=== PATIENT | female | born 1970 | race Caucasian/White ===

== ENCOUNTER 2016-10-28 22:49 | Inpatient (IN) | payer OTHER ==
[~2016-10-28] VITALS: Ht 165.1 cm; Wt 71.2 kg
--- NOTE | 2016-10-29 02:37 | ERD ---
ER Documentation Chief Complaint Date/Time DATE: 10/29/16 TIME: 02:34 Chief Complaint nosebleeding x 1 hour. no active nosebleeding in intake HPI This is a 46-year-old female presenting to the emergency room stating that she had a nosebleed in the right nare that lasted about an hour. Patient states that there is no active bleeding. She denies any upper respiratory infection symptoms, headache, dizziness or chest pain or shortness of breath. Patient states it is the first time it happens. She denies any medical history ROS All systems reviewed and are negative except as per history of present illness. Allergies Allergies: Coded Allergies: No Known Drug Allergies (Verified Allergy, Unknown, 10/28/16) Physical Exam Vitals Vital Signs Date Time Temp Pulse Resp B/P Pulse Ox O2 Delivery O2 Flow Rate FiO2 10/28/16 22:56 98.2 83 20 113/72 99 Physical Exam Const: Well-developed well-nourished no acute distress Head: Atraumatic Eyes: Normal Conjunctiva ENT: Normal External Ear and Mouth. On examination there was evidence of dried blood in the right nare no active bleed Neck: Full range of motion..~ No meningismus. Resp: Clear to auscultation bilaterally Cardio: Regular rate and rhythm, no murmurs Abd: Soft, non tender, non distended. Normal bowel sounds Skin: No petechiae or rashes Back: No midline or flank tenderness Ext: No cyanosis, or edema Neur: Awake and alert Psych: Normal Mood and Affect Procedures/MDM This is a 46-year-old female presenting to the emergency room with a history of epistaxis today which is likely a anterior epistaxis. There was no active bleeding on examination, patient has stable vital signs. She appears to be hemodynamically stable. No evidence of a posterior epistaxis. Patient did not have any headache or head injury. I discussed to apply Vaseline in the right nare. I discussed her to the ER for any worsening signs or symptoms. Discussed to follow-up with the primary care physician. Patient understands and agrees with plan Departure Diagnosis: Primary Impression: Epistaxis Condition: Stable Patient Instructions: Epistaxis (Adult) Referrals: NO PRIMARY,CARE PHYSICIAN (PCP) mayorga doctora [facility] Usted se chaudhari hecho un examen mdico de control que le indica que no est en [place] condicin que requiera tratamiento urgente en el Departamento de Emergencia. Un estudio ms profundo y el tratamiento de mayorga condicin pueden esperar sin ningn riesgo hasta que usted sea atendida/o en el consultorio de mayorga mdico o lake cl connie. Es responsabilidad suya arreglar [place] para el seguimiento del josie. MANEJO DE CONDICIONES NO URGENTES EN EL FUTURO 1) Si usted tiene un mdico de atencin primaria: Usted debera llamar a mayorga mdico de atencin primaria antes de venir al departamento de emergencia. Despus de las horas de consultorio, mayorga doctor o mayorga asociado/a est disponible por telfono. El mdico o enfermero de sharri en el servicio telefnico puede asesorarle por joss medio para atender el problema, o josie contrario se puede programar [place]. 2) Si usted no tiene un mdico de atencin primaria: Llame al mdico o clnica de referencia que aparece abajo nuris las horas de consultorio para hacer [place] para que le vean. CLINICAS: [facility] [phone] [facility] [phone] [facility]. [facility] [phone] [facility] [place] [id number] [phone] [facility] [place] [address] [phone] [facility]. [phone] Additional Instructions: Visite a mayorga mdico maana para un EXAMEN.Regrese a estas instalaciones si no se mejora mauro esperbamos o mauro le dijimos. Regrese a estas instalaciones si no se mejora mauro esperbamos o mauro le dijimos. DENNISE CONNER PA-C Oct 29, 2016 02:37
--- NOTE | 2016-10-29 03:42 | RADRPT ---
PROCEDURE: XR Chest. CLINICAL INDICATION: Shortness of breath. TECHNIQUE: AP Portable chest. COMPARISON: No pertinent prior examinations were submitted for comparison. FINDINGS: There is moderate cardiomegaly. The lungs are clear. The osseous structures are unremarkable. IMPRESSION: No acute findings. RPTAT: HIKT .Maxi Spaulding MD, MD Date Time Electronically viewed and signed by .Maxi Spaulding MD, MD on 10/29/2016 03:42 .T/
[2016-10-29 04:38] LABS: ADD SCAN DIFF NO
[2016-10-29 04:42] LABS: BASOPHILS % 0.3 % (0.0-2.0); EOSINOPHILS # 0.1 10^3/ul (0.0-0.5); EOSINOPHILS % 1.9 % (0.0-7.0); HEMATOCRIT 39.3 % (37.0-47.0); HEMOGLOBIN 12.6 g/dl (12.0-16.0); LYMPHOCYTES # 2.1 10^3/ul (0.8-2.9); MEAN CORPUSCULAR HEMOGLOBIN 29.1 pg (29.0-33.0); MEAN CORPUSCULAR HGB CONC 32.1 g/dl (32.0-37.0); MEAN CORPUSCULAR VOLUME 90.8 fl (82.0-101.0); MEAN PLATELET VOLUME 12.3 fl (7.4-10.4); MONOCYTE # 0.6 10^3/ul (0.3-0.9); MONOCYTES % 9.5 % (0.0-11.0); NEUTROPHIL # 3.8 10^3/ul (1.6-7.5); PLATELET COUNT 235 10^3/UL (140-415); RED BLOOD COUNT 4.33 10^6/ul (4.20-5.40); RED CELL DISTRIBUTION WIDTH 13.6 % (11.5-14.5); WHITE BLOOD COUNT 6.7 10^3/ul (4.8-10.8)
[2016-10-29 04:45] LABS: POTASSIUM 4.3 mmol/L (3.5-5.1)
[2016-10-29 04:47] LABS: INR 0.98
[2016-10-29 04:48] LABS: CREATININE 0.57 mg/dl (0.44-1.00)
[2016-10-29 04:49] LABS: CALCIUM 9.1 mg/dl (8.4-10.2)
[2016-10-29 05:00] LABS: TROPONIN-I 0.04 ng/ml (0.00-0.12)
[2016-10-29] MEDS ORDERED: NITROGLYCERIN 2% 1 GM OINT PKT TD ONE (05:30)
[2016-10-29] MEDS ORDERED: ASPIRIN 325 MG TAB PO ONE (05:30)
--- NOTE | 2016-10-29 05:36 | ERA ---
ER Documentation Chief Complaint Date/Time DATE: 10/29/16 Chief Complaint Chest pain HPI The patient is a 46-year-old female, presenting to the ER because of nosebleed about 10 PM that resolved by itself. She complains of sternal chest pain that began about 9:30 AM, 02/11, increased with respiration. She denies any fever, complains of nasal congestion, intermittent cough today. She denies neck pain, chest pain with exertion or vomiting or diaphoresis.. He denies abdominal pain, vomiting, diarrhea, constipation. She does not smoke, drinks socially Past medical history:None Past surgical history: 3 C-sections ROS All systems reviewed and are negative except as per history of present illness. Allergies Allergies: Coded Allergies: No Known Drug Allergies (Verified Allergy, Unknown, 10/28/16) PMhx/Soc History of Surgery: Yes ( X 3.) Anesthesia Reaction: No Hx Neurological Disorder: No Hx Respiratory Disorders: No Hx Cardiac Disorders: No Hx Psychiatric Problems: No Hx Miscellaneous Medical Probl: No Hx Alcohol Use: Yes (RARELY) Hx Substance Use: No Hx Tobacco Use: No Smoking Status: Never smoker Physical Exam Vitals Vital Signs Date Time Temp Pulse Resp B/P Pulse Ox O2 Delivery O2 Flow Rate FiO2 10/29/16 03:07 97.9 67 20 100/71 99 Room Air 10/28/16 22:56 98.2 83 20 113/72 99 Physical Exam Const: No acute distress. Head: Atraumatic. Eyes: Normal Conjunctiva. ENT: Normal External Ears, Nose and Mouth. No active nostril bleeding Neck: Full range of motion. No meningismus. Resp: Clear to auscultation bilaterally. Cardio: Regular rate and rhythm, no murmurs. Abd: Soft, non distended, normal bowel sounds, non tender. Skin: No petechiae or rashes. Back: No midline or flank tenderness. Ext: No cyanosis, or edema. Neur: Awake and alert. No focal deficit Psych: Normal Mood and Affect. Result Diagram: 10/29/16 0325 10/29/16 0325 Results 24 hrs Laboratory Tests Test 10/29/16 03:25 Activated Partial Thromboplast Time 31.0Sec Anion Gap 15 Basophils # 0.010^3/ul Basophils % 0.3% Blood Urea Nitrogen 12mg/dl Calcium Level 9.1mg/dl Carbon Dioxide Level 28mmol/L Chloride Level 102mmol/L Creatinine 0.57mg/dl Eosinophils # 0.110^3/ul Eosinophils % 1.9% Glucose Level 101mg/dl Hematocrit 39.3% Hemoglobin 12.6g/dl INR International Normalized Ratio 0.98 Lymphocytes # 2.110^3/ul Lymphocytes % 31.0% Mean Corpuscular Hemoglobin 29.1pg Mean Corpuscular Hemoglobin Concent 32.1g/dl Mean Corpuscular Volume 90.8fl Mean Platelet Volume 12.3fl Monocytes # 0.610^3/ul Monocytes % 9.5% Neutrophils # 3.810^3/ul Neutrophils % 57.0% Nucleated Red Blood Cells # 0.010^3/ul Nucleated Red Blood Cells % 0.0/100WBC Platelet Count 97277^3/UL Potassium Level 4.3mmol/L Prothrombin Time 13.0Sec Prothrombin Time Ratio 1.0 Red Blood Count 4.3310^6/ul Red Cell Distribution Width 13.6% Sodium Level 141mmol/L Troponin I 0.040ng/ml White Blood Count 6.710^3/ul Current Medications Medications (Trade) Dose Ordered Sig/Meghan Route PRN Reason Start Time Stop Time Status Last Admin Dose Admin Aspirin (Aspirin) 325 mg ONCE ONCE PO 10/29/16 05:30 10/29/16 05:31 Nitroglycerin (Nitroglycerin 2% Oint) 1 inch ONCE ONCE TD 10/29/16 05:30 10/29/16 05:31 Procedures/MDM EKG: Read by emergency physician Rate/Rhythm: Normal Sinus Rhythm 87 beats/min QRS, ST, T-waves: No ST elevation, low voltage QRS, inferior T-wave inversion Impression: Abnormal EKG [place] [address] Radiology Main Line: [phone] DIAGNOSTIC IMAGING REPORT Patient: YAW GIRON : 1970 Age: 46 Sex: F MR #: [id number] DOS: 10/29/16 0315 Ordering MD: VERENICE MCKEON MD Location: E/R Room/Bed: PROCEDURE: XR Chest. CLINICAL INDICATION: Shortness of breath. TECHNIQUE: AP Portable chest. COMPARISON: No pertinent prior examinations were submitted for comparison. FINDINGS: There is moderate cardiomegaly. The lungs are clear. The osseous structures are unremarkable. IMPRESSION: No acute findings. RPTAT: HIKT .Maxi Spaulding MD, MD Date Time Electronically viewed and signed by .Maxi Spaulding MD, MD on 10/29/2016 03:42 .T/ CC: VERENICE MCKEON MD MEDICAL MAKING DECISION: The patient is a 46-year-old female, resenting with acute chest pain with abnormal EKG and acute viral syndrome. she was treated with aspirin 325 mg p.o. and 1 inch of nitroglycerin ointment with good response. The differential diagnoses considered include but are not limited to acute coronary syndrome, acute myocardial infarction, pericarditis, pulmonary embolism, aortic dissection, pneumonia, pleural effusion, pneumothorax, GERD, chest wall pain, pleurisy. Departure Diagnosis: Primary Impression: Chest pain Additional Impressions: Viral syndrome Epistaxis Condition: Stable Patient Instructions: Epistaxis (Adult) Comments I discussed the findings with the patient. I discussed the patient with the on- call hospitalist at the [facility] who was made aware of the lab, the treatment, the patient condition. The patient is admitted to telemetry at 5 AM VERENICE MCKEON MD Oct 29, 2016 05:33
--- NOTE | 2016-10-29 05:43 | HP ---
Date/Time of Note Date/Time of Note DATE: 10/29/16 TIME: 05:38 Assessment/Plan VTE Prophylaxis VTE Prophylaxis Intervention: LMWH Lines/Catheters IV [facility]ter [facility]from [facility] Saline Lock Assessment/Plan Assessment/Plan 46 yo female with no significant past medical history who complains of chest pain. 1. Chest pain - atypical vs ACS - will admit the patient to telemetry, cycle cardiac markers, check TSH/Mag levels, ECHO, morphine/oxygen/nitro/aspirin, check lipid panel, hgba1c 2. GI ppx - pepcid 3. DVT ppx - lovenox answered all of her questions. as per clinical course. this history and physical took greater then 45 minutes to complete HPI/ROS Admit Date/Time Admit Date/Time 10/29/2016, 5:38 am Hx of Present Illness 46 yo female with no significant past medical history who complains of chest pain. She states that the chest pain is substernal, pressure-like, 5/10 in intensity, constant, no alleviating factors, non-radiating, associated with dizziness and shortness of breath. the pain is non-reproducible or pleuritic in nature. Denies any nausea/vomiting/diarrhea/constipation, loss of consciousness , headaches, urinary/bowel irregularities, fevers/chills, or other constitutional symptoms. This has never happened before. ED course: aspirin/nitro paste ROS 14 point review of systems completed, please refer to HPI for any positive findings PMH/Family/Social Past Medical History Medical History: no pertinent history Past Surgical History x 3 Family History Significant Family History: no pertinent family hx Social History Alcohol Use: none Smoking Status: Never smoker Drug Use: none Exam/Review of Systems Vital Signs Vitals Vital Signs Date Time Temp Pulse Resp B/P Pulse Ox O2 Delivery O2 Flow Rate FiO2 10/29/16 03:07 97.9 67 20 100/71 99 Room Air Exam Exam Gen Prince: mild distress 2/2 chest pain, AAOx4 HEENT: NC/AT, PERRLA, EOMI, no pharyngeal erythema, no tonsillar exudates, no lymphadenopathy, no JVD, no carotid bruits NECK: supple, no thyromegaly THORAX: symmetrical, no obvious deformities CV: S1S2, RRR, no M/G/R Lungs: CTAB no W/C/R/R Abd: soft, NT/ND, +BS, no rebound, no guarding, neg HSM EXT: no edema, no ecchymosis, no clubbing, FROM Neuro: CN II-XII grossly intact, no focal deficits Psych: good mentation, alert and oriented, good mood and affect Skin: C/D/I Labs Result Diagram: 10/29/165 10/29/16 0325 Procedures Procedures CXR IMPRESSION: No acute findings. KELLY MARVIN MD Oct 29, 2016 05:43
[2016-10-29] MEDS ORDERED: LORAZEPAM 2 MG INJ IV PRN (06:00)
[2016-10-29] MEDS ORDERED: hydrALAzine 20 MG INJ IV PRN (06:00)
[2016-10-29] MEDS ORDERED: DOCUSATE SODIUM 100 MG CAP PO PRN (06:00)
[2016-10-29] MEDS ORDERED: NACL 0.9% 3 ML SYG IV SCH (06:00)
[2016-10-29] MEDS ORDERED: ONDANSETRON 4 MG INJ IV PRN (06:00)
[2016-10-29] MEDS ORDERED: NITROGLYCERIN (SL) 0.4 MG TAB SL PRN (06:00)
[2016-10-29 07:05] LABS: CHOL/HDL RATIO 3.5 RATIO; MAGNESIUM 2.1 mg/dl (1.7-2.5)
[2016-10-29 09:21] LABS: THYROID STIMULATING HORMONE 5.48 MIU/L (0.465-4.680)
[2016-10-29] MEDS: ASPIRIN 81 MG TAB PO SCH (10:12)
[2016-10-29] MEDS: FAMOTIDINE 20 MG TAB PO SCH ×2 (10:12→20:19)
[2016-10-29] MEDS: ENOXAPARIN 40 MG/0.4 ML SYG SC SCH (10:13)
[2016-10-29 11:04] LABS: CK-MB 0.8 ng/ml (0.0-2.4)
[2016-10-29 11:07] LABS: TROPONIN-I 0.014 ng/ml (0.00-0.12)
[2016-10-29 16:06] LABS: CK-MB 0.59 ng/ml (0.0-2.4)
[2016-10-29 16:09] LABS: TROPONIN-I 0.023 ng/ml (0.00-0.12)
--- NOTE | 2016-10-29 16:25 | QN ---
Documentation Comment The patient was seen and examined. Labs reviewed. The plan of care was explained to the patient. Case discussed with Dr. Benton. PEEWEE WETZEL NP Oct 29, 2016 16:25
[2016-10-29 16:47] VITALS: TEMP 98.4
[2016-10-29 17:09] VITALS: BP 95/63; PULSE 82; RESP 20
[2016-10-29 17:16] VITALS: Ht 165.1 cm; Wt 71.2 kg
[2016-10-29 17:29] VITALS: PULSE 82
[2016-10-29] MEDS: ACETAMINOPHEN 325 MG TAB PO PRN (18:25)
[2016-10-29 20:00] VITALS: BP 101/57; PULSE 79; RESP 19
[2016-10-29] MEDS: morphine 2 MG INJ IV PRN (20:19)
[2016-10-29] MEDS: FLUTICASONE 0.05% 16 GM NAS SPRAY NASAL SCH (20:20)
[2016-10-29 20:26] VITALS: PULSE 85
[2016-10-30] VITALS (14 sets, daily range): BP systolic 87–112; BP diastolic 54–76; PULSE 70–94; RESP 16–20
[2016-10-30 07:16] LABS: ADD SCAN DIFF NO
[2016-10-30 07:26] LABS: BASOPHILS % 0.3 % (0.0-2.0); EOSINOPHILS # 0.1 10^3/ul (0.0-0.5); EOSINOPHILS % 1.9 % (0.0-7.0); HEMATOCRIT 39.3 % (37.0-47.0); HEMOGLOBIN 12.2 g/dl (12.0-16.0); LYMPHOCYTES # 1.7 10^3/ul (0.8-2.9); LYMPHOCYTES % 24.9 % (15.0-51.0); MEAN CORPUSCULAR HEMOGLOBIN 28.8 pg (29.0-33.0); MEAN CORPUSCULAR VOLUME 92.7 fl (82.0-101.0); MEAN PLATELET VOLUME 12.3 fl (7.4-10.4); MONOCYTE # 0.8 10^3/ul (0.3-0.9); MONOCYTES % 11.2 % (0.0-11.0); NEUTROPHIL # 4.2 10^3/ul (1.6-7.5); NEUTROPHILS % 61.4 % (39.0-77.0); PLATELET COUNT 229 10^3/UL (140-415); RED BLOOD COUNT 4.24 10^6/ul (4.20-5.40); RED CELL DISTRIBUTION WIDTH 14.1 % (11.5-14.5); WHITE BLOOD COUNT 6.8 10^3/ul (4.8-10.8)
[2016-10-30 07:46] LABS: POTASSIUM 4.7 mmol/L (3.5-5.1)
[2016-10-30 07:48] LABS: MAGNESIUM 1.9 mg/dl (1.7-2.5); PHOSPHORUS 4.1 mg/dl (2.5-4.9)
[2016-10-30 07:49] LABS: CALCIUM 8.8 mg/dl (8.4-10.2); CREATININE 0.69 mg/dl (0.44-1.00)
[2016-10-30 07:57] LABS: TROPONIN-I 0.024 ng/ml (0.00-0.12)
[2016-10-30] MEDS: FAMOTIDINE 20 MG TAB PO SCH ×2 (09:02→22:18)
[2016-10-30] MEDS: ASPIRIN 81 MG TAB PO SCH (09:02)
[2016-10-30] MEDS: FLUTICASONE 0.05% 16 GM NAS SPRAY NASAL SCH (09:02)
[2016-10-30] MEDS: ENOXAPARIN 40 MG/0.4 ML SYG SC SCH (09:06)
[2016-10-30 14:39] LABS: HEMATOCRIT 39.6 % (37.0-47.0); HEMOGLOBIN 12.5 g/dl (12.0-16.0)
--- NOTE | 2016-10-30 14:51 | PN ---
DATE: 10/30/2016 TIME OF EVALUATION: 1400 SUBJECTIVE DATA: Denies any chest pain. Had 3 episodes of epistaxis from bilateral nares today. Currently, the bleeding has been stopped. The patient denies any headache. However, she complains of nasal stuffiness. The patient also complained that she was able to taste blood in her mouth. OBJECTIVE DATA: VITAL SIGNS: Temperature 98.8, pulse rate 80, respiratory rate 16, blood pressure 99/64, oxygen saturation 95% on room air. GENERAL: This is a well-built, well-nourished female, lying in bed, in no apparent distress. HEENT: Head normocephalic and atraumatic. Eyes: Anicteric sclerae. Conjunctivae clear. ENT: Nasal septum is midline. Dried blood in the bilateral nares. No active bleeding. NECK: Supple. No JVD noticed. RESPIRATORY: Bilaterally clear to auscultation. No adventitious breath sounds. CARDIAC: Regular rate and rhythm. No murmurs. ABDOMEN: Soft, nontender, and nondistended. Bowel sounds positive in all 4 quadrants. GENITOURINARY: Deferred. EXTREMITIES: No cyanosis, no clubbing, no edema. Peripheral pulses are palpable. NEUROLOGIC: The patient is awake, alert, and oriented. Cranial nerves are grossly intact. LABORATORY AND DIAGNOSTIC DATA: WBC 6.8, hemoglobin 12.0, hematocrit 39.2, platelet count 229. Sodium 141, potassium 4.7, chloride 103, carbon dioxide 20 , anion gap 16, BUN 14, creatinine 0.69, glucose 89, calcium 8.8, phosphorus 4.1 , magnesium 1.9. Troponin I 0.024. ASSESSMENT AND PLAN: 1. Chest pain. To rule out acute coronary syndrome. Troponins negative. Pending 2-D echocardiogram. Will avoid using any aspirin or other anticoagulation because of underlying epistaxis. 2. Epistaxis. The patient came to the emergency room initially for epistaxis that was resolved in the emergency room. However, the patient had multiple episodes of epistaxis after she was hospitalized as inpatient. All the anticoagulants will be held on this patient. An ENT consult will be obtained on this patient. The patient is not actively bleeding at this time. Will obtain a stat H and H on this patient. The patient's coagulation panel is within normal limits. The patient has no evidence of any thrombocytopenia. The patient denied any obvious injuries to the face or head. 3. Fluid, electrolytes, and nutrition. Low cholesterol diet. 4. Deep venous thrombosis prophylaxis. Will add sequential compression devices. 5. Gastrointestinal prophylaxis. Histamine 2 blockers. 6. Plan. Continue in-house monitoring. Call ENT surgery promotion manager for underlying epistaxis. Will await 2D echocardiogram. Case discussed with Dr. Madison. ADDENDUM. Received a call back from Dr. Chambers, ENT. Presented the case to the surgeon. As per the surgeon, will monitor the patient for any more bleeding. The patient does not require any intervention as long as there is no more epistaxis. The patient's anticoagulation has already been discontinued. Will monitor the patient. It no more epistaxis, the patient will be discharged home once ACS has been ruled out (pending 2D echo). PEEWEE MADISON MD, AM/TJ Conf#: [id number] DID#: [id number] MTDD
--- NOTE | 2016-10-30 15:38 | RADRPT ---
Echocardiogram Report Patient Name: YAW GIRON Gender: Female Date: 1970 Study Date: 30-Oct-2016 Wet Mixer: [facility] Location: 507 Ref. Physician: KELLY MARVIN Quality: Technically Difficult Study Procedures: Transthoracic echocardiogram with complete 2D, M-Mode, and doppler examination. Indications: Chest Pain. 2D/M Mode Doppler Measurement Value Normal Ranges Measurement Value Normal Ranges LVIDd 2D 5.2 3.5 - 5.6 cm AV Peak Parth 1.3 m/sec LVPWd 2D 1.1 0.6 - 1.1 cm AV Peak PG 6.8 mmHg IVSd 2D 0.9 0.6 - 1.1 cm LVOT Peak Parth 0.8 m/sec AoR Diam 2D 2.1 2.0 - 3.7 cm Findings Left Ventricle: Left ventricular wall thickness upper limits of normal. Mild enlargement of left ventricle cavity. Severe global left ventricular systolic dysfunction. Ejection fraction is visually estimated at 25 %. Abnormal Diastolic Function. Right Ventricle: Normal right ventricular size. Normal right ventricular systolic function. Left Atrium: The left atrium is normal in size. Right Atrium: The right atrium is normal in size. Mitral Valve: Mild mitral leaflet calcification. Mild mitral valve regurgitation. Aortic Valve: Aortic cusps appear mildly calcified. Trileaflet aortic valve. Trace aortic valve regurgitation. Tricuspid Valve: Tricuspid valve not well visualized. There is trace tricuspid regurgitation. Pulmonic Valve: There is trace pulmonic regurgitation. Pericardium: Normal pericardium with no significant pericardial effusion. Aorta: Normal aortic root. IVC: Normal size and poor respiratory collapse consistent with elevated right atrial pressure. Conclusions 1.Left ventricular wall thickness upper limits of normal. Mild enlargement of left ventricle cavity. Severe global left ventricular systolic dysfunction. Ejection fraction is visually estimated at 25 %. Abnormal Diastolic Function. 2.Aortic cusps appear mildly calcified. Trileaflet aortic valve. Trace aortic valve regurgitation. 3.Mild mitral leaflet calcification. Mild mitral valve regurgitation. 4.Tricuspid valve not well visualized. There is trace tricuspid regurgitation. Electronically Signed By: Nikos Hitchcock 30-Oct-2016 15:38:03 -0800 Patient Name: YAW GIRON Study Date: 30-Oct-[id number]
--- NOTE | 2016-10-30 16:35 | QN ---
Documentation Comment Received a call back from Dr. Chambers, ENT. Presented the case to the surgeon. As per the surgeon, will monitor the patient for any more bleeding. The patient does not require any intervention as long as there is no more epistaxis. The patient's anticoagulation has already been discontinued. Will monitor the patient. It no more epistaxis, the patient will be discharged home once ACS has been ruled out (pending 2D echo). Case discussed with Dr. Benton. PEEWEE WETZEL NP Oct 30, 2016 16:35
--- NOTE | 2016-10-30 18:27 | EN ---
Date/Time of Note Date/Time of Note DATE: 10/30/16 TIME: 18:23 ER Progress Note This a 46-year-old female who is admitted for a nosebleed and chest pain. The patient's had off-and-on nosebleed today out of both nares but mostly the left side. There is bright red blood coming anteriorly but not posteriorly. Patient was apparently given aspirin Lovenox this morning. She is not having any dizziness or pain. Const: [Well-developed, well-nourished] Head: [Atraumatic, normocephalic] Eyes: [Normal Conjunctiva, PERRLA, EOMI, normal sclera, no nystagmus] ENT: [Normal External Ears, bright red blood coming out of the left anterior nares no site identified moist mucus membranes.] Neck: [Full range of motion. No meningismus, no lymphadenopathy.] Skin: [No petechiae or rashes, no ecchymosis , no maculopapular rash] Ext: [No cyanosis, or edema, FROM x 4, normal inspection, neurovascularly intact x 4] Neur: [Awake and alert, STR 5/5 x 4, sensation intact x 4, Psych: [Normal Mood and Affect] Procedure: Rhino Rocket placement A left nares anterior posterior Rhino Rocket was placed by me after soaking in water. Air was placed into the balloon until the patient felt comfortable enough yet bleeding was stopped Successful placement resolution of epistaxis Condition: Stable Diagnosis: Left nares epistaxis DESTINEY AMARO DO Oct 30, 2016 18:27
[2016-10-31] VITALS (14 sets, daily range): BP systolic 99–109; BP diastolic 59–71; PULSE 69–105; RESP 17–19
[2016-10-31 06:07] LABS: ADD SCAN DIFF NO
[2016-10-31 06:15] LABS: BASOPHILS % 0.1 % (0.0-2.0); EOSINOPHILS # 0.1 10^3/ul (0.0-0.5); HEMATOCRIT 39.2 % (37.0-47.0); HEMOGLOBIN 12.6 g/dl (12.0-16.0); LYMPHOCYTES # 1.6 10^3/ul (0.8-2.9); LYMPHOCYTES % 22.5 % (15.0-51.0); MEAN CORPUSCULAR HEMOGLOBIN 29.4 pg (29.0-33.0); MEAN CORPUSCULAR HGB CONC 32.1 g/dl (32.0-37.0); MEAN CORPUSCULAR VOLUME 91.4 fl (82.0-101.0); MONOCYTE # 0.8 10^3/ul (0.3-0.9); MONOCYTES % 10.9 % (0.0-11.0); NEUTROPHIL # 4.5 10^3/ul (1.6-7.5); NEUTROPHILS % 64.2 % (39.0-77.0); PLATELET COUNT 235 10^3/UL (140-415); RED BLOOD COUNT 4.29 10^6/ul (4.20-5.40); RED CELL DISTRIBUTION WIDTH 13.7 % (11.5-14.5)
[2016-10-31 06:36] LABS: POTASSIUM 5.2 mmol/L (3.5-5.1)
[2016-10-31 06:37] LABS: MAGNESIUM 1.9 mg/dl (1.7-2.5); PHOSPHORUS 4.2 mg/dl (2.5-4.9)
[2016-10-31 06:38] LABS: CREATININE 0.74 mg/dl (0.44-1.00)
[2016-10-31] MEDS: FAMOTIDINE 20 MG TAB PO SCH ×2 (09:03→21:21)
[2016-10-31] MEDS ORDERED: CARV3.1260 PO (10:24)
[2016-10-31] MEDS ORDERED: LISI-313 PO (10:24)
--- NOTE | 2016-10-31 12:04 | CONS ---
DATE OF ADMISSION: 10/29/2016 DATE OF CONSULTATION: 10/31/2016 TYPE OF CONSULTATION: Cardiology REFERRING PHYSICIAN: Dr. Duong REASON FOR EVALUATION: Cardiomyopathy. HISTORY OF PRESENT ILLNESS: Ms. Blake is a 46-year-old woman with no known past medical histo ry who comes to the hospital now, who presented for evaluation of substernal chest pain. The patien t does not appear to have an acute ischemic event; however, during her evaluation she was noted to h ave significantly reduced ejection fraction, I have been asked to see the patient in consultation. The patient is not aware of any heart problems in the past. She did have some nosebleed and ____ di scomfort, but she does not appear to be in significant degree of cardiac decompensation at this poin t. For now, this is considered to be ____ of heart failure. Will initiate risk stratification. Th e patient will have a stress test and will optimize her medical therapy with afterload reduction. PAST MEDICAL HISTORY: None per patient. SOCIAL HISTORY: The patient does not smoke, does not drink, does not use drugs. FAMILY HISTORY: Negative for sudden cardiac or premature coronary artery disease. CURRENT MEDICATIONS: Include: 1. Famotidine 20 mg a day. 2. IV flush. 3. Nitroglycerin. 4. Docusate. 5. Hydralazine. REVIEW OF SYSTEMS: CONSTITUTIONAL: No fevers, no chills. Chest pain as described. HEENT: No changes in vision or hearing. CARDIAC: No chest pain reported now. RESPIRATORY: Some shortness of breath. GASTROINTESTINAL: No nausea, vomiting, diarrhea, constipation. GENITOURINARY: No dysuria, hematuria, or decreased urine output. NEUROLOGIC: No focal neurologic deficits. HEMATOLOGIC: No easy bruising. PSYCHIATRIC: No known history of psychiatric illness. PHYSICAL EXAMINATION: VITAL SIGNS: Temperature is 98.0, heart rate is 105, blood pressure 109/65. GENERAL: She is a thin woman in no acute distress, alert and oriented x3, aware of her condition. HEAD: Normocephalic, atraumatic. Eyes anicteric. NECK: Supple. JVD 6-7 cm. There is no lymphadenopathy or thyromegaly. HEART: Regular with soft holosystolic murmur. PMI is displaced leftward. LUNGS: Coarse at bases. ABDOMEN: Distended, bowel sounds are present. There is no hepatosplenomegaly. GENITOURINARY: Grossly intact changes, cyanosis, or edema. LABORATORY DATA: White blood cell count 7.3, hemoglobin 12.6, platelets 235. INR is 1.0. Sodium 1 41, potassium 5.2, creatinine 0.9. Troponin is negative at 0.02. ECG read by me shows sinus rhythm at 86, is low voltage. ASSESSMENT AND PLAN: 1. Cardiomyopathy. The patient has newly diagnosed cardiomyopathy, etiology is unclear. 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 Will risk stratification now with a stress test. Wi ll add afterload reduction, sinus tachycardia, beta vipul to be beneficial. 2. History of nosebleeds. We will continue to follow, appears to have stopped now. 3. Chest pain. The patient did not rule in for ischemia. Troponins are negative. 4. Abnormal EKG, low voltage as described. No particular treatment is required. I would like to thank Dr. Duong for referring this patient for my evaluation. Dictated By: TISHA BAXTER/TJ Conf#: [id number] DID#: [id number]
--- NOTE | 2016-10-31 14:46 | PN ---
Date/Time of Note Date/Time of Note DATE: 10/31/16 TIME: 14:43 Assessment/Plan VTE Prophylaxis VTE Prophylaxis Intervention: SCD's Lines/Catheters IV [facility]ter Type [facility]from [facility] Saline Lock Urinary Cath still in place: No Assessment/Plan Chief Complaint/Hosp Course Assessment and plan 1. Chest pain. Patient noted with ejection fraction of 25%. Troponins negative. Proof Machine Operator Supervisor following. Tentative plan for stress test. 2. Epistaxis. ENT consulted. No plan for surgical intervention at this time. Should patient have worsening epistaxis, patient may need ENT intervention. We' ll follow-up. Off anticoagulation and antiplatelet for now DVT prophylaxis: SCDs Disposition and plan: Plan for stress test. We'll get ENT physician for follow- up should patient have worsening epistaxis. Discussed plan of care with Problems: Subjective 24 Hr Interval Summary Free Text/Dictation No apparent distress. Comfortable at present Exam/Review of Systems Vital Signs Vitals Vital Signs Date Time Temp Pulse Resp B/P Pulse Ox O2 Delivery O2 Flow Rate FiO2 10/31/16 12:27 90 10/31/16 12:07 98.1 17 103/63 97 10/31/16 04:00 Room Air Intake and Output 10/30/16 10/30/16 10/31/16 14:59 22:59 06:59 Intake Total 950 ml 1020 ml Balance 950 ml 1020 ml Exam General: No acute signs or symptoms of distress, noted with packing in nasal area Eyes: pupils equal round, Anicteric sclera Neck: Supple nontender, no JVD Cardiac: S1, S2 auscultated, regular rhythm and rate Pulmonary: No coarse rhonchi or breathing auscultated GI: Abdomen soft nontender nondistended, bowel sounds active Extremities: Minimal edema bilateral lower extremities +1 Skin: Clean dry and intact Neurologic: Alert to person place and time and situation Results Result Diagram: 10/31/16 0555 10/31/16 0555 Results 24 hrs Laboratory Tests Test 10/31/16 05:55 Anion Gap 16 Basophils # 0.0 Basophils % 0.1 Blood Urea Nitrogen 13 Calcium Level 9.0 Carbon Dioxide Level 29 Chloride Level 101 Creatinine 0.74 Eosinophils # 0.1 Eosinophils % 2.0 Glucose Level 100 Hematocrit 39.2 Hemoglobin 12.6 Lymphocytes # 1.6 Lymphocytes % 22.5 Magnesium Level 1.9 Mean Corpuscular Hemoglobin 29.4 Mean Corpuscular Hemoglobin Concent 32.1 Mean Corpuscular Volume 91.4 Mean Platelet Volume 12.0 H Monocytes # 0.8 Monocytes % 10.9 Neutrophils # 4.5 Neutrophils % 64.2 Nucleated Red Blood Cells # 0.0 Nucleated Red Blood Cells % 0.0 Phosphorus Level 4.2 Platelet Count 235 Potassium Level 5.2 H Red Blood Count 4.29 Red Cell Distribution Width 13.7 Sodium Level 141 White Blood Count 7.0 Medications Medications Current Medications Lorazepam (Ativan) 0.5 mg Q6H PRN IV ANXIETY; Start 10/29/16 at 06:00 Ondansetron HCl (Zofran Inj) 4 mg Q6H PRN IV NAUSEA AND/OR VOMITING; Start at 06:00 Nitroglycerin (Nitroglycerin (Sl Tab) 0.4 Mg) 1 tab Q5M PRN SL CHEST PAIN; Start 10/29/16 at 06:00 Acetaminophen (Tylenol Tab) 650 mg Q6H PRN PO PAIN LEVEL 1-3 OR FEVER Last administered on 10/29/16 18:25; Admin Dose 650 MG; Start 10/29/16 at 06:00 Morphine Sulfate (morphine) 2 mg Q4H PRN IV PAIN LEVEL 7-10 Last administered on 10/29/16 20:19; Admin Dose 2 MG; Start 10/29/16 at 06:00 Docusate Sodium (Colace) 100 mg Q12H PRN PO CONSTIPATION; Start 10/29/16 at 06: 00 Famotidine (Pepcid) 20 mg Q12 PO Last administered on 10/31/16 09:03; Admin Dose 20 MG; Start 10/29/16 at 09:00 Hydralazine HCl (Apresoline) 10 mg Q6H PRN IV sbp > 160; Start 10/29/16 at 06: 00 Carvedilol (Coreg) 3.125 mg BID PO ; Start 10/31/16 at 21:00 Lisinopril (Zestril) 2.5 mg BID PO ; Start 10/31/16 at 21:00 ROSA RODRIGUES Oct 31, 2016 14:46
[2016-10-31] MEDS: ACETAMINOPHEN 325 MG TAB PO PRN (18:13)
[2016-10-31] MEDS: LISINOPRIL 5 MG TAB PO SCH (21:00)
[2016-11-01] VITALS (11 sets, daily range): BP systolic 100–119; BP diastolic 58–75; PULSE 88–101; RESP 17–20
[2016-11-01] MEDS: FAMOTIDINE 20 MG TAB PO SCH ×2 (09:03→20:20)
[2016-11-01] MEDS: LISINOPRIL 5 MG TAB PO SCH ×2 (09:04→20:19)
--- NOTE | 2016-11-01 10:53 | PN ---
Date/Time of Note Date/Time of Note DATE: 11/01/16 TIME: 10:51 Assessment/Plan VTE Prophylaxis VTE Prophylaxis Intervention: SCD's Lines/Catheters [facility]ter Type (from [facility] Saline Lock Urinary Cath still in place: No Assessment/Plan Chief Complaint/Hosp Course Assessment and plan 1. Chest pain. Patient noted with ejection fraction of 25%. Troponins negative. Harness And Bag Inspector following. Tentative plan for stress test. 11/01/16 2. Epistaxis. ENT consulted. off of anticoagulants. STill with reported epistaxis. Await ENT input DVT prophylaxis: SCDs Disposition and plan: Plan for stress test. Still with epistaxis. Await ENT input. Will follow up . Discussed plan of care with Problems: Subjective 24 Hr Interval Summary Free Text/Dictation no s/s of distress . still reports having nose bleeds Exam/Review of Systems Vital Signs Vitals Vital Signs Date Time Temp Pulse Resp B/P Pulse Ox O2 Delivery O2 Flow Rate FiO2 11/01/16 08:30 93 11/01/16 07:47 98.4 17 119/75 95 10/31/16 04:00 Room Air Intake and Output 10/31/16 10/31/16 11/01/16 15:00 23:00 07:00 Intake Total 950 ml 250 ml Balance 950 ml 250 ml Exam General: No acute signs or symptoms of distress, noted with packing in nasal area Eyes: pupils equal round, Anicteric sclera Neck: Supple nontender, no JVD Cardiac: S1, S2 auscultated, regular rhythm and rate Pulmonary: No coarse rhonchi or breathing auscultated GI: Abdomen soft nontender nondistended, bowel sounds active Extremities: Minimal edema bilateral lower extremities +1 Skin: Clean dry and intact Neurologic: Alert to person place and time and situation Results Result Diagram: 10/31/1655 10/31/1655 Medications Medications Current Medications Lorazepam (Ativan) 0.5 mg Q6H PRN IV ANXIETY; Start 10/29/16 at 06:00 Ondansetron HCl (Zofran Inj) 4 mg Q6H PRN IV NAUSEA AND/OR VOMITING; Start at 06:00 Nitroglycerin (Nitroglycerin (Sl Tab) 0.4 Mg) 1 tab Q5M PRN SL CHEST PAIN; Start 10/29/16 at 06:00 Acetaminophen (Tylenol Tab) 650 mg Q6H PRN PO PAIN LEVEL 1-3 OR FEVER Last administered on 10/31/16 18:13; Admin Dose 650 MG; Start 10/29/16 at 06:00 Morphine Sulfate (morphine) 2 mg Q4H PRN IV PAIN LEVEL 7-10 Last administered on 10/29/16 20:19; Admin Dose 2 MG; Start 10/29/16 at 06:00 Docusate Sodium (Colace) 100 mg Q12H PRN PO CONSTIPATION; Start 10/29/16 at 06: 00 Famotidine (Pepcid) 20 mg Q12 PO Last administered on 11/01/16 09:03; Admin Dose 20 MG; Start 10/29/16 at 09:00 Hydralazine HCl (Apresoline) 10 mg Q6H PRN IV sbp > 160; Start 10/29/16 at 06: 00 Carvedilol (Coreg) 3.125 mg BID PO Last administered on 11/01/16 09:04; Admin Dose 3.125 MG; Start 10/31/16 at 21:00 Lisinopril (Zestril) 2.5 mg BID PO Last administered on 11/01/16 09:04; Admin Dose 2.5 MG; Start 10/31/16 at 21:00 ROSA RODRIGUES Nov 01, 2016 10:53
[2016-11-01 11:45] LABS: ADD SCAN DIFF NO
[2016-11-01 12:01] LABS: POTASSIUM 4.4 mmol/L (3.5-5.1)
[2016-11-01 12:03] LABS: CREATININE 0.62 mg/dl (0.44-1.00)
[2016-11-01 12:04] LABS: CALCIUM 8.9 mg/dl (8.4-10.2)
[2016-11-01 12:07] LABS: BASOPHILS % 0.3 % (0.0-2.0); EOSINOPHILS # 0.1 10^3/ul (0.0-0.5); EOSINOPHILS % 0.8 % (0.0-7.0); HEMATOCRIT 40.9 % (37.0-47.0); LYMPHOCYTES # 1.6 10^3/ul (0.8-2.9); LYMPHOCYTES % 16.8 % (15.0-51.0); MEAN CORPUSCULAR HEMOGLOBIN 28.8 pg (29.0-33.0); MEAN CORPUSCULAR HGB CONC 31.8 g/dl (32.0-37.0); MEAN CORPUSCULAR VOLUME 90.5 fl (82.0-101.0); MEAN PLATELET VOLUME 11.8 fl (7.4-10.4); MONOCYTE # 0.9 10^3/ul (0.3-0.9); MONOCYTES % 8.8 % (0.0-11.0); NEUTROPHIL # 7.1 10^3/ul (1.6-7.5); PLATELET COUNT 266 10^3/UL (140-415); RED BLOOD COUNT 4.52 10^6/ul (4.20-5.40); RED CELL DISTRIBUTION WIDTH 13.7 % (11.5-14.5); WHITE BLOOD COUNT 9.7 10^3/ul (4.8-10.8)
[2016-11-01] MEDS ORDERED: REGADENOSON 0.4 MG/5 ML SYG ONE (12:55)
--- NOTE | 2016-11-01 14:27 | RADRPT ---
PROCEDURE: Lexiscan myocardial perfusion study CLINICAL INDICATION: 46 -year-old patient complaining of chest pain. TECHNIQUE: Lexiscan 0.4 mg intravenously separate acquisition gated myocardial perfusion SPECT usi ng Tc 99m Myoview 30.9 mCi intravenously at stress and Tc-99m Myoview, 9.4 mCi intravenously at rest was performed using the rest/stress sequence. Poststress Myoview SPECT images were obtained in the supine position. COMPARISON: No prior studies. FINDINGS: Perfusion images reveal a moderate size mild to moderate in degree nonreversible perfusion defect in the apical, inferior and inferoseptal flores. Lexiscan post stress gated SPECT images demonstrate moderate hypokinesis of the left ventricle. IMPRESSION: 1. The type and distribution of the scintigraphic abnormalities are most consistent with a moderate size nonreversible perfusion defect in the apical, inferior and inferoseptal flores. 2. Moderate hypokinesis of the left ventricle. 3. The left ventricle ejection fraction at stress is 28%. A call report was made to Dr. Hitchcock at 02:25 p.m. on November 01, 2016. RPTAT: HH .Silvia Barros MD, Date Time Electronically viewed and signed by .Silvia Barros MD, on 11/01/2016 14:26 .L/
--- NOTE | 2016-11-01 14:49 | CONS ---
Date/Time of Note Date/Time of Note DATE: 11/01/16 TIME: 14:48 Assessment/Plan Assessment/Plan Additional Assessment/Plan 1. Cardiomyopathy. The patient has newly diagnosed cardiomyopathy, etiology is unclear. 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 Will risk stratification now with a stress test. Will add afterload reduction, sinus tachycardia, beta vipul to be beneficial. STRES TEST DONE - will await results. 2. History of nosebleeds. We will continue to follow, appears to have stopped now. Better now. 3. Chest pain. The patient did not rule in for ischemia. Troponins are negative. 4. Abnormal EKG, low voltage as described. No particular treatment is required. Consultation Date/Type/Reason Admit Date/Time Oct 29, 2016 at 05:03 Initial Consult Date 24 HR Interval Summary Free Text/Dictation NO acute change - BP stale will adjust Rx. ROS: No fever, no chills, no nausea, no vomiting, no diarrhea/constipation No recent weight changes No chest pain, no PND, no orthopnea No dizziness, blurred vision No thirst, no heat or cold intolerance Exam/Review of Systems Vital Signs Vitals Vital Signs Date Time Temp Pulse Resp B/P Pulse Ox O2 Delivery O2 Flow Rate FiO2 11/01/16 12:04 88 11/01/16 11:20 97.8 17 106/64 94 10/31/16 04:00 Room Air Intake and Output 10/31/16 10/31/16 11/01/16 15:00 23:00 07:00 Intake Total 950 ml 250 ml Balance 950 ml 250 ml Exam General: WN/WD/NAD, AOx 3 HEENT: Unicetric/atraumatic/EOMI (follow commands), nose packed NECK: JVD elevated, no thyromegaly Lymph: no lymphadenopathy HEART: regular with no S3, II/ systolic murmur at apex LUNGS: Coarse sounds ABD: soft, NT, ND, +BS : Intact Neuro: non focal SKIN: chronic changes EXT: trace edema Results Result Diagram: 11/01/16 1130 11/01/16 1130 Results 24 hrs Laboratory Tests Test 11/01/16 11:30 Anion Gap 15 Basophils # 0.0 Basophils % 0.3 Blood Urea Nitrogen 11 Calcium Level 8.9 Carbon Dioxide Level 28 Chloride Level 102 Creatinine 0.62 Eosinophils # 0.1 Eosinophils % 0.8 Glucose Level 104 Hematocrit 40.9 Hemoglobin 13.0 Lymphocytes # 1.6 Lymphocytes % 16.8 Mean Corpuscular Hemoglobin 28.8 L Mean Corpuscular Hemoglobin Concent 31.8 L Mean Corpuscular Volume 90.5 Mean Platelet Volume 11.8 H Monocytes # 0.9 Monocytes % 8.8 Neutrophils # 7.1 Neutrophils % 73.0 Nucleated Red Blood Cells # 0.0 Nucleated Red Blood Cells % 0.0 Platelet Count 266 Potassium Level 4.4 Red Blood Count 4.52 Red Cell Distribution Width 13.7 Sodium Level 141 White Blood Count 9.7 # Medications Medications Current Medications Lorazepam (Ativan) 0.5 mg Q6H PRN IV ANXIETY; Start 10/29/16 at 06:00 Ondansetron HCl (Zofran Inj) 4 mg Q6H PRN IV NAUSEA AND/OR VOMITING; Start at 06:00 Nitroglycerin (Nitroglycerin (Sl Tab) 0.4 Mg) 1 tab Q5M PRN SL CHEST PAIN; Start 10/29/16 at 06:00 Acetaminophen (Tylenol Tab) 650 mg Q6H PRN PO PAIN LEVEL 1-3 OR FEVER Last administered on 10/31/16 18:13; Admin Dose 650 MG; Start 10/29/16 at 06:00 Morphine Sulfate (morphine) 2 mg Q4H PRN IV PAIN LEVEL 7-10 Last administered on 10/29/16 20:19; Admin Dose 2 MG; Start 10/29/16 at 06:00 Docusate Sodium (Colace) 100 mg Q12H PRN PO CONSTIPATION; Start 10/29/16 at 06: 00 Famotidine (Pepcid) 20 mg Q12 PO Last administered on 11/01/16 09:03; Admin Dose 20 MG; Start 10/29/16 at 09:00 Hydralazine HCl (Apresoline) 10 mg Q6H PRN IV sbp > 160; Start 10/29/16 at 06: 00 Carvedilol (Coreg) 3.125 mg BID PO Last administered on 11/01/16 09:04; Admin Dose 3.125 MG; Start 10/31/16 at 21:00 Lisinopril (Zestril) 2.5 mg BID PO Last administered on 11/01/16 09:04; Admin Dose 2.5 MG; Start 10/31/16 at 21:00 TISHA NICHOLSON MD Nov 01, 2016 14:49
[2016-11-01] MEDS: ACETAMINOPHEN 325 MG TAB PO PRN (20:20)
[2016-11-01] MEDS: morphine 2 MG INJ IV PRN (23:26)
[2016-11-02] VITALS (10 sets, daily range): BP systolic 86–102; BP diastolic 52–64; PULSE 72–89; RESP 18–20
--- NOTE | 2016-11-02 07:23 | ECORPT ---
DATE OF SERVICE: 11/01/2016 REFERRING PHYSICIAN: Dr. Duong REASON FOR EVALUATION: Cardiomyopathy, new onset. The patient was brought into the heart station in a fasting condition. Initial blood pressure was 1 05/____. She had successful Lexiscan injection. She tolerated the injection well. The imaging por tion of the report will be dictated separately. Dictated By: TISHA NICHOLSON MD ML/TJ Conf#: [id number] DID#: [id number]
[2016-11-02 07:32] LABS: ADD SCAN DIFF NO
[2016-11-02 07:42] LABS: BASOPHILS % 0.2 % (0.0-2.0); EOSINOPHILS # 0.2 10^3/ul (0.0-0.5); EOSINOPHILS % 2.3 % (0.0-7.0); HEMATOCRIT 38.7 % (37.0-47.0); HEMOGLOBIN 12.4 g/dl (12.0-16.0); LYMPHOCYTES # 1.8 10^3/ul (0.8-2.9); LYMPHOCYTES % 21.8 % (15.0-51.0); MEAN CORPUSCULAR HEMOGLOBIN 29.3 pg (29.0-33.0); MEAN CORPUSCULAR VOLUME 91.5 fl (82.0-101.0); MEAN PLATELET VOLUME 11.9 fl (7.4-10.4); MONOCYTE # 0.9 10^3/ul (0.3-0.9); NEUTROPHIL # 5.4 10^3/ul (1.6-7.5); NEUTROPHILS % 64.3 % (39.0-77.0); PLATELET COUNT 251 10^3/UL (140-415); RED BLOOD COUNT 4.23 10^6/ul (4.20-5.40); RED CELL DISTRIBUTION WIDTH 13.8 % (11.5-14.5); WHITE BLOOD COUNT 8.4 10^3/ul (4.8-10.8)
[2016-11-02 07:51] LABS: POTASSIUM 4.5 mmol/L (3.5-5.1)
[2016-11-02 07:54] LABS: CALCIUM 8.8 mg/dl (8.4-10.2); CREATININE 0.64 mg/dl (0.44-1.00)
[2016-11-02] MEDS: FAMOTIDINE 20 MG TAB PO SCH (08:52)
[2016-11-02] MEDS: ACETAMINOPHEN 325 MG TAB PO PRN (08:55)
[2016-11-02] MEDS: LISINOPRIL 5 MG TAB PO SCH (08:56)
--- NOTE | 2016-11-02 09:20 | HP ---
DATE OF ADMISSION: 10/29/2016 HISTORY OF PRESENT ILLNESS: The patient is a 46-year-old female who was admitted on Monday with a h istory of epistaxis and chest pain. She was admitted after receiving aspirin and subsequently Loven ox. She had epistaxis requiring nasal packing placed. Packing was inserted approximately 48 hours ago. She has continued to have intermittent epistaxis. However, she continues to receive anticoagu lation. PAST MEDICAL HISTORY: As noted. She was found to have a possible cardiomyopathy. PAST SURGICAL HISTORY: As noted. MEDICATIONS: Lovenox. REVIEW OF SYSTEMS: Otherwise unremarkable. PHYSICAL EXAMINATION: GENERAL: Well-developed, well-nourished female in no acute distress. HEAD AND NECK: Left nasal packing is in place. No active bleeding noted in the nasal cavity or ora l cavity. No other masses identified. No significant lymphadenopathy. ASSESSMENT: Epistaxis with left-sided nasal pack. RECOMMENDATION: 1. Continue anticoagulation. 2. Continue packing for a total of 3-4 days. The patient may be discharged with follow up in the [facility] for further evaluation and epistaxis and office equipment is much more useful in the managemen t of epistaxis. If she continues to remain in the hospital, she will require pack placement on the other side and possible cauterization. Additional packing and silver nitrate sticks ordered at the bedside. The patient will be discharged and followed as an outpatient for further treatment of epis taxis. Dictated By: ALAINA MCFADDEN/TJ Conf#: [id number] DID#: [id number]
--- NOTE | 2016-11-02 12:17 | CONS ---
Date/Time of Note Date/Time of Note DATE: 11/02/16 TIME: 12:13 Assessment/Plan Assessment/Plan Chief Complaint/Hosp Course Imp: 1.Cardiomyopathy-LVEF 28% by stress with no ischemia 2.HOth-borderline likely due to low EF 3.CHest abnu-[id number] ischemia by stress only scar 4.Epistaxis-s/p nasal packing Recc: -Tele -serial ecg's -Follow volume status closely -Continue coreg and ACEI as tolerated only Problems: Consultation Date/Type/Reason Admit Date/Time Oct 29, 2016 at 05:03 Initial Consult Date 10/31/15 Type of Consultation: Cardiology Reason for Consultation cardiomyopathy Referring Provider: ITZEL LEACH Exam/Review of Systems Vital Signs Vitals Vital Signs Date Time Temp Pulse Resp B/P Pulse Ox O2 Delivery O2 Flow Rate FiO2 11/02/16 12:04 89 11/02/16 11:23 98.5 18 93/58 93 10/31/16 04:00 Room Air Intake and Output 11/01/16 11/01/16 11/02/16 15:00 23:00 07:00 Intake Total 550 ml 250 ml Balance 550 ml 250 ml Exam Review of Systems: CONSTITUTIONAL: No fevers, chills. PULMONARY: No sob CARDIOVASCULAR: No chest pain/palpitations GASTROINTESTINAL: No nausea/vomiting. GENITOURINARY: No hematuria/dysuria. MUSCULOSKELETAL: No myagias/arthalgias. PSYCHIATRIC: The patient denies depression. NEUROLOGIC: No weakness Constitutional: alert, oriented Psych: no complaints Head: normocephalic ENMT: mucosa pink and moist Neck: jvd (9 cm water), supple Respiratory: diminished breath sounds Cardiovascular: regular rate and rhythm Gastrointestinal: non-tender, soft Musculoskeletal: muscle tone (normal) Extremities: edema (none) Neurological: other (No focal deficits) Results Result Diagram: 11/02/16 0615 11/02/16 0615 Results 24 hrs Laboratory Tests Test 11/02/16 06:15 Anion Gap 17 H Basophils # 0.0 Basophils % 0.2 Blood Urea Nitrogen 11 Calcium Level 8.8 Carbon Dioxide Level 29 Chloride Level 98 Creatinine 0.64 Eosinophils # 0.2 Eosinophils % 2.3 Glucose Level 93 Hematocrit 38.7 Hemoglobin 12.4 Lymphocytes # 1.8 Lymphocytes % 21.8 Mean Corpuscular Hemoglobin 29.3 Mean Corpuscular Hemoglobin Concent 32.0 Mean Corpuscular Volume 91.5 Mean Platelet Volume 11.9 H Monocytes # 0.9 Monocytes % 11.0 Neutrophils # 5.4 Neutrophils % 64.3 Nucleated Red Blood Cells # 0.0 Nucleated Red Blood Cells % 0.0 Platelet Count 251 Potassium Level 4.5 Red Blood Count 4.23 Red Cell Distribution Width 13.8 Sodium Level 139 White Blood Count 8.4 Medications Medications Current Medications Lorazepam (Ativan) 0.5 mg Q6H PRN IV ANXIETY; Start 10/29/16 at 06:00 Ondansetron HCl (Zofran Inj) 4 mg Q6H PRN IV NAUSEA AND/OR VOMITING; Start at 06:00 Nitroglycerin (Nitroglycerin (Sl Tab) 0.4 Mg) 1 tab Q5M PRN SL CHEST PAIN; Start 10/29/16 at 06:00 Acetaminophen (Tylenol Tab) 650 mg Q6H PRN PO PAIN LEVEL 1-3 OR FEVER Last administered on 11/02/16 08:55; Admin Dose 650 MG; Start 10/29/16 at 06:00 Morphine Sulfate (morphine) 2 mg Q4H PRN IV PAIN LEVEL 7-10 Last administered on 11/01/16 23:26; Admin Dose 2 MG; Start 10/29/16 at 06:00 Docusate Sodium (Colace) 100 mg Q12H PRN PO CONSTIPATION; Start 10/29/16 at 06: 00 Famotidine (Pepcid) 20 mg Q12 PO Last administered on 11/02/16 08:52; Admin Dose 20 MG; Start 10/29/16 at 09:00 Hydralazine HCl (Apresoline) 10 mg Q6H PRN IV sbp > 160; Start 10/29/16 at 06: 00 Carvedilol (Coreg) 3.125 mg BID PO Last administered on 11/01/16 20:20; Admin Dose 3.125 MG; Start 10/31/16 at 21:00 Lisinopril (Zestril) 2.5 mg BID PO Last administered on 11/01/16 20:19; Admin Dose 2.5 MG; Start 10/31/16 at 21:00 CODY TAO Nov 02, 2016 12:17
--- NOTE | 2016-11-02 14:43 | PDOCDIS ---
Discharge Instructions DIAGNOSIS Discharge Diagnosis: 1. chest pain 2. cardiomyopathy 3. epistaxis CONDITION Patient Condition: Stable HOME CARE INSTRUCTIONS: Special Diet: 1800 bob 2g FOLLOW UP/APPOINTMENTS Appointments 1. Follow up with your primary care provider within a week 2. Follow up at [facility] for further management and care OTHER ORDERS: Other Orders: 1. Take your medications as prescribed 2. Further medication refills per your primary care provider ROSA RODRIGUES Nov 02, 2016 14:43
--- NOTE | 2016-11-02 16:06 | DS ---
Date/Time of Note Date/Time of Note DATE: 11/02/16 TIME: 16:03 Discharge Summary Admission/Discharge Info Admit Date/Time Oct 29, 2016 at 05:03 Discharge Date/Time Final Diagnosis 1. Chest pain. Patient noted with ejection fraction of 25%. 2. Cardiomyopathy 3. Epistaxis. Patient Condition: Stable Consults 1. Dr. Nikos Hitchcock 2. Dr. Arie Harman 3. Dr. Cherry Bradley Hospital Course This 46-year-old female with no past medical history who came to [facility] due to reports of chest pain. Patient denied any dizziness shortness of breath. She also came in with noted epistaxis on arrival. Patient was seen by ENT physician who did provide packing for the patient. She was instructed for outpatient follow-up with this and to leave packing in place. She was removed off of anticoagulants that would further cause her nosebleeds. For her chest pain she was also seen by sulfuric acid plant operator. She did have serial troponins drawn which were all essentially negative. Additionally she had echocardiogram with EF noted at 25%. This was a new finding. Patient had no reported history of cardiomyopathy. Patient did have stress test done also that did show type distribution of the scintigraphic abnormalities most consistent with a moderate-sized nonreversible perfusion defect in the apical, inferior and inferoseptal flores. Patient was optimized beta vipul as well as ROSALIND inhibitor. Case management was involved in the patient's case to help provided patient with information for patient to [facility]. After discussion with sulfuric acid plant operator no plan for AICD during this admission. She was cleared by sulfuric acid plant operator on the day of discharge. The plan of care was discussed the patient and patient did verbalize her understanding. On the day of discharge patient was in stable condition Discharge process time is 40 minutes Discussed in of care with Dr. Cornejo Disposition: Home Home Meds Active Scripts Lisinopril* (Lisinopril*) 5 Mg Tablet, 2.5 MG PO BID for 30 Days, TAB Prov:ROSA RODRIGUES 10/31/16 Carvedilol* (Carvedilol*) 3.125 Mg Tablet, 3.125 MG PO BID for 30 Days, TAB Prov:ROSA RODRIGUES 10/31/16 Follow-up Plan CONDITION Patient Condition: Stable HOME CARE INSTRUCTIONS: Special Diet: 1800 bob 2g FOLLOW UP/APPOINTMENTS Appointments 1. Follow up with your primary care provider within a week 2. Follow up at [facility] for further management and care OTHER ORDERS: Other Orders: 1. Take your medications as prescribed 2. Further medication refills per your primary care provider Pending Labs Laboratory Tests Test 11/02/16 06:15 Anion Gap 17 (8-16) Basophils # 0.010^3/ul (0.0-0.1) Basophils % 0.2% (0.0-2.0) Blood Urea Nitrogen 11mg/dl (7-20) Calcium Level 8.8mg/dl (8.4-10.2) Carbon Dioxide Level 29mmol/L (21-31) Chloride Level 98mmol/L (97-110) Creatinine 0.64mg/dl (0.44-1.00) Eosinophils # 0.210^3/ul (0.0-0.5) Eosinophils % 2.3% (0.0-7.0) Glucose Level 93mg/dl (70-220) Hematocrit 38.7% (37.0-47.0) Hemoglobin 12.4g/dl (12.0-16.0) Lymphocytes # 1.810^3/ul (0.8-2.9) Lymphocytes % 21.8% (15.0-51.0) Mean Corpuscular Hemoglobin 29.3pg (29.0-33.0) Mean Corpuscular Hemoglobin Concent 32.0g/dl (32.0-37.0) Mean Corpuscular Volume 91.5fl (82.0-101.0) Mean Platelet Volume 11.9fl (7.4-10.4) Monocytes # 0.910^3/ul (0.3-0.9) Monocytes % 11.0% (0.0-11.0) Neutrophils # 5.410^3/ul (1.6-7.5) Neutrophils % 64.3% (39.0-77.0) Nucleated Red Blood Cells # 0.010^3/ul (0.0-0.0) Nucleated Red Blood Cells % 0.0/100WBC (0.0-0.0) Platelet Count 01003^3/UL (140-415) Potassium Level 4.5mmol/L (3.5-5.1) Red Blood Count 4.2310^6/ul (4.20-5.40) Red Cell Distribution Width 13.8% (11.5-14.5) Sodium Level 139mmol/L (135-144) White Blood Count 8.410^3/ul (4.8-10.8) ROSA RODRIGUES Nov 02, 2016 16:06
== END 2016-11-02 17:55 | disposition home or self-care (01) | DRG 316 ==
LOC: FTE 22:49 → TEL 10-29 05:03
PROVIDERS: ADMIT Student in an Organized Health Care Education/Training Program; ATTEND Student in an Organized Health Care Education/Training Program
PROC: 2Y41X5Z Packing of Nasal Region using Packing Material (ICD-10-PCS; principal; 2016-10-30)
DX: I42.9 Cardiomyopathy, unspecified (principal); R04.0 Epistaxis; R94.31 Abnormal electrocardiogram [ECG] [EKG]
CPT/HCPCS: 71010; 78452; 80048; 80061; 82550; 82553; 83036; 83735; 84100; 84443; 84484; 85014; 85018; 85025; 85610; 85730; 93005; 93017; 93306; 96372; A9500; A9505; J1650; J2060; J2270; J2785

== ENCOUNTER 2018-10-23 20:01 | Inpatient (IN) | payer MEDICAID ==
[~2018-10-23] VITALS: Ht 162.6 cm; Wt 79.0 kg
[~2018-10-23 20:01] MED LIST: BUME1TAB PO; LISI-313 PO
[2018-10-23] MEDS ORDERED: METHYLPREDNISOLONE 125 MG INJ IV STA (21:21)
[2018-10-23] MEDS ORDERED: ALBUTEROL 0.5% (NEB) 2.5 MG/0.5 ML AMP INH STA (21:21)
--- NOTE | 2018-10-23 21:23 | ERD ---
ER Documentation Chief Complaint Chief Complaint Cough, short of breath HPI This is a 48-year-old female who is complaining of shortness of breath and wheezing today when ambulatory. The patient states that she has had a cough for a week with productive sputum, loss of voice, body aches and subjective fever. She said when she walks she gets wheezing, chest pain and short of breath today. . She does have any exertional chest pain. There is some mild chest pain when she takes a deep breath. No radiation of pain no nausea no dizziness ROS All systems reviewed and are negative except as per history of present illness. Medications Home Meds Active Scripts Bumetanide* (Bumetanide*) 1 Mg Tablet, 1 MG PO DAILY for 60 Days, #60 TAB Prov:CODY MAN MD 05/12/18 Lisinopril* (Lisinopril*) 5 Mg Tablet, 5 MG PO DAILY for 60 Days, #60 TAB Prov:CODY MAN MD 05/12/18 Allergies Allergies: Coded Allergies: No Known Drug Allergies (Verified Allergy, Unknown, 05/08/18) PMhx/Soc Anesthesia Reaction: No Hx Neurological Disorder: No Hx Respiratory Disorders: No Hx Cardiac Disorders: No Hx Psychiatric Problems: No Hx Miscellaneous Medical Probl: No Hx Alcohol Use: Yes (OCCASIONALLY BEER ) Hx Substance Use: No Hx Tobacco Use: No FmHx Family History: No coronary disease Physical Exam Vitals Vital Signs Date Temp Pulse Resp B/P (MAP) Pulse Ox O2 O2 Flow FiO2 Time Delivery Rate 10/23/18 89 20 117/62 97 Room Air 23:12 (80) 10/23/18 80 20 96 21 21:57 10/23/18 98.7 76 29 117/17 97 Room Air 21:20 (50) 10/23/18 98.1 87 20 103/73 99 20:14 (83) Physical Exam Const: Well-developed, well-nourished Head: Atraumatic, normocephalic Eyes: Normal Conjunctiva, PERRLA, EOMI, normal sclera, no nystagmus ENT: Normal External Ears, Nose and Mouth, moist mucus membranes hoarse voice. Neck: Full range of motion. No meningismus, no lymphadenopathy. Resp: Decreased breath sounds bilaterally with some scattered rhonchi bilaterally Cardio: Regular rate and rhythm, no murmurs, S1 S2 present Abd: Soft, non tender x 4, non distended. Normal bowel sounds, no guarding or rebound, no pulsitile abdominal masses or bruits Skin: No petechiae or rashes, no ecchymosis , no maculopapular rash Back: No midline or flank tenderness Ext: No cyanosis, or edema, FROM x 4, normal inspection, neurovascularly intact x 4 Neur: Awake and alert, STR 5/5 x 4, sensation intact x 4, no focal findings, cerebellum intact Psych: Normal Mood and Affect Result Diagram: 10/23/18211910/23/182119 Results 24 hrs Laboratory Tests Test 10/23/18 21:20 White Blood Count 8.9 10^3/ul Red Blood Count 4.67 10^6/ul Hemoglobin 13.3 g/dl Hematocrit 41.8 % Mean Corpuscular Volume 89.5 fl Mean Corpuscular Hemoglobin 28.5 pg Mean Corpuscular Hemoglobin Concent 31.8 g/dl Red Cell Distribution Width 13.4 % Platelet Count 214 10^3/UL Mean Platelet Volume 11.8 fl Immature Granulocytes % 0.300 % Neutrophils % 66.8 % Lymphocytes % 23.9 % Monocytes % 7.4 % Eosinophils % 1.2 % Basophils % 0.4 % Nucleated Red Blood Cells % 0.0 /100WBC Immature Granulocytes # 0.030 10^3/ul Neutrophils # 6.0 10^3/ul Lymphocytes # 2.1 10^3/ul Monocytes # 0.7 10^3/ul Eosinophils # 0.1 10^3/ul Basophils # 0.0 10^3/ul Nucleated Red Blood Cells # 0.0 10^3/ul Sodium Level 137 mmol/L Potassium Level 4.5 mmol/L Chloride Level 101 mmol/L Carbon Dioxide Level 28 mmol/L Anion Gap 8 Blood Urea Nitrogen 21 mg/dl Creatinine 0.78 mg/dl Est Glomerular Filtrat Rate mL/min > 60 mL/min Glucose Level 103 mg/dl Calcium Level 9.3 mg/dl Troponin I 0.017 ng/ml Current Medications Medications Dose Sig/Meghan Start Time Status Last (Trade) Ordered Route PRN Stop Time Admin Dose Reason Admin Albuterol 10 mg ONCE STAT 10/23/18 DC 10/23/18 (Proventil INH 21:21 21:57 0.5% (Neb)) 10/23/18 21:22 125 mg ONCE STAT 10/23/18 DC 10/23/18 Methylprednis IV 21:21 21:46 olone Sodium 10/23/18 21:22 Succinate (Solu-Medrol) 1 tab Q5M UP TO 3 10/23/18 10/23/18 Nitroglycerin DOSES PRN 23:30 23:25 SL .CHEST (Nitroglyceri PAIN n (Sl Tab) 0.4 Mg) Albuterol 7.5 mg ONCE STAT 10/23/18 DC (Proventil NEB 23:20 0.083% (Neb)) 10/23/18 23:22 Procedures/MDM Chest x-ray per radiologist demonstrates cardiomegaly, no infiltrate no vascular congestion EKG: Rate/Rhythm: Normal sinus rhythm with left anterior fascicular block QRS, ST, QT: NORMAL PA, QRS, QT] Impression: Abnormal EKG After a 10 mg albuterol breathing treatment she says that she does not feel much better. She says her chest still feels tight but only slightly better after treatment. She says it also still hard to breathe. We will try a sublingual nitroglycerin and give another breathing treatment. Patient received nebs with Solu-Medrol and she is not clinically better. The daughter is here and says that the patient cannot walk more than 10 feet before she gets out of breath to the point where she has a difficult time talking. She does have some cardiomegaly I did send off a BNP will probably need to evaluate for heart failure but she could also get a cardiac workup/I feel that her symptoms seem more pulmonary Repeat examination after breathing treatment she still has bilateral decreased breath sounds. She will need some more pulmonary therapy here and observation We did a sublingual nitroglycerin trial and this did relieve her chest pain so will admit for chest pain workup Cardiac Admit MDM: Patient's symptoms are concerning for cardiac cause will require inpatient workup and continuous monitoring. Further w/u for ischemia, arrhythmia, PE or dissection will be deferred to the inpatient team. Departure Diagnosis: Primary Impression: Chest pain Chest pain type: unspecified Qualified Codes: R07.9 - Chest pain, unsp ecified Condition: Stable DESTINEY AMARO DO Oct 23, 2018 21:23
[2018-10-23] MEDS ORDERED: ALBUTEROL 0.083% (NEB) 2.5 MG/3 ML AMP NEB STA (23:20)
[2018-10-23] MEDS ORDERED: NITROGLYCERIN (SL) 0.4 MG TAB SL PRN (23:30)
[2018-10-23] MEDS ORDERED: NITROGLYCERIN 2% 1 GM OINT PKT TD STA (23:40)
[2018-10-23] MEDS ORDERED: ASPIRIN 325 MG TAB PO STA (23:40)
[2018-10-24] VITALS (12 sets, daily range): BP systolic 88–102; BP diastolic 50–60; PULSE 62–95; RESP 16–18; Ht 162.6 cm; Wt 79.0 kg
[2018-10-24] MEDS ORDERED: ACETAMINOPHEN 325 MG TAB PO PRN
[2018-10-24] MEDS ORDERED: ONDANSETRON 4 MG INJ IV PRN
[2018-10-24] MEDS ORDERED: NITROGLYCERIN (SL) 0.4 MG TAB SL PRN
[2018-10-24] MEDS ORDERED: FUROSEMIDE 40 MG INJ IV ONE (00:30)
[2018-10-24] MEDS ORDERED: NACL 0.9% 3 ML SYG IV SCH (01:00)
--- NOTE | 2018-10-24 01:08 | HP ---
Date/Time of Note Date/Time of Note DATE: 10/24/18 TIME: 00:55 Assessment/Plan VTE Prophylaxis Pharmacological prophylaxis: heparin Assessment/Plan Hospital Course 48-year-old female with chronic systolic nonischemic cardiomyopathy EF 25% who presents with acute on chronic CHF exacerbation Acute on chronic CHF systolic exacerbation: -This in the setting of being off of her Lasix for the past few weeks. We will resume IV diuresis -She is not markedly overloaded probably only a few liters above her dry weight -Continue metoprolol and lisinopril -Spironolactone is also indicated, will start Discharge when breathing improved and euvolemic. Very much needs outpateint care arranged as this occured when she ran out of meds and has no doctor Result Diagram: 10/23/18211910/23/182119 Results 24hrs Laboratory Tests Test 10/23/18 21:20 10/23/18 23:28 White Blood Count 8.9 Red Blood Count 4.67 Hemoglobin 13.3 Hematocrit 41.8 Mean Corpuscular Volume 89.5 Mean Corpuscular Hemoglobin 28.5 L Mean Corpuscular Hemoglobin Concent 31.8 L Red Cell Distribution Width 13.4 Platelet Count 214 Mean Platelet Volume 11.8 H Immature Granulocytes % 0.300 Neutrophils % 66.8 Lymphocytes % 23.9 Monocytes % 7.4 Eosinophils % 1.2 Basophils % 0.4 Nucleated Red Blood Cells % 0.0 Immature Granulocytes # 0.030 Neutrophils # 6.0 Lymphocytes # 2.1 Monocytes # 0.7 Eosinophils # 0.1 Basophils # 0.0 Nucleated Red Blood Cells # 0.0 Sodium Level 137 Potassium Level 4.5 Chloride Level 101 Carbon Dioxide Level 28 Anion Gap 8 Blood Urea Nitrogen 21 H Creatinine 0.78 Est Glomerular Filtrat Rate mL/min > 60 Glucose Level 103 Calcium Level 9.3 Troponin I 0.017 B-Type Natriuretic Peptide 3340 H HPI/ROS Admit Date/Time Admit Date/Time Hx of Present Illness This is a 48-year-old female with a history of systolic CHF nonischemic who presents with shortness of breath and cough for the last couple weeks Patient with chronic cardiomyopathy. She has been admitted for this previously. She has been off of Lasix for the last few weeks as her prescription ran out and she does not have a doctor currently. She is still taking her metoprolol and her lisinopril however. Over the last couple weeks she has become progressively short of breath with exertional dyspnea and a dry cough. In the ED she was noted to be wheezing and given a nebulizer treatment PMH/Family/Social Past Medical History Medical History: congestive heart failure Medications Current Medications Nitroglycerin (Nitroglycerin (Sl Tab) 0.4 Mg) 1 tab Q5M UP TO 3 DOSES PRN SL .CHEST PAIN Last administered on 10/23/18at 23:25; Admin Dose 1 TAB; Start at 23:30 Nitroglycerin (Nitroglycerin (Sl Tab) 0.4 Mg) 1 tab Q5M UP TO 3 DOSES PRN SL .CHEST PAIN; Start 10/24/18 at 00:00 Ondansetron HCl (Zofran Inj) 4 mg ER BRIDGE PRN IV NAUSEA/VOMITING; Start 10/24/18 at 00:00; Stop 10/24/18 at 23:59 Acetaminophen (Tylenol Tab) 650 mg ER BRIDGE PRN PO .MILD PAIN 1-3 OR TEMP; Start 10/24/18 at 00:00; Stop 10/24/18 at 23:59 Coded Allergies: No Known Drug Allergies (Verified Allergy, Unknown, 05/08/18) Past Surgical History Past Surgical Hx: no surgical history Family History Significant Family History: no pertinent family hx Social History Alcohol Use: none Smoking Status: Never smoker Drug Use: none Exam/Review of Systems Vital Signs Vitals Vital Signs Date Temp Pulse Resp B/P (MAP) Pulse Ox O2 O2 Flow FiO2 Time Delivery Rate 10/24/18 106 26 112/64 96 Room Air 00:40 (80) 10/23/18 21 23:40 10/23/18 98.7 21:20 Exam Exam Resting comfortably no distress Markedly elevated jugular venous distention Tacky regular with displaced PMI Lungs are clear without wheezing but are dull at the bases Abdomen is soft nontender nondistended Extremities are warm and without edema EKG is normal sinus rhythm with low voltages left anterior fascicular block KATYA VILLAGRAN MD Oct 24, 2018 01:07
[2018-10-24] MEDS: FUROSEMIDE 40 MG INJ IV SCH ×2 (05:45→17:31)
[2018-10-24] MEDS: SPIRONOLACTONE 25 MG TAB PO SCH (08:50)
[2018-10-24] MEDS: METOPROLOL (XL) 25 MG TAB PO SCH (08:52)
[2018-10-24] MEDS: HEPARIN 5,000 UNIT/1 ML VIAL SC SCH ×2 (08:54→20:19)
[2018-10-24] MEDS: LISINOPRIL 5 MG TAB PO SCH (12:05)
--- NOTE | 2018-10-24 14:41 | PN ---
Date/Time of Note Date/Time of Note DATE: 10/24/18 TIME: 14:41 Assessment/Plan VTE Prophylaxis Risk score (from Ns)>0 risk: 2 SCD applied (from Ns): No SCD contraindicated: other Pharmacological prophylaxis: heparin Lines/Catheters IV Catheter Type (from [facility] Saline Lock Urinary Cath still in place: No Assessment/Plan Hospital Course SUBJECTIVE: Complains of hoarseness of voice. Continues to have dyspnea. Complains of abdominal pain. OBJECTIVE: Physical Exam General: Adequately build 48 year-old female lying in bed in no apparent distress. HEENT: Normocephalic, atraumatic. Eyes: Anicteric sclerae, conjunctivae clear. ENT: Nasal septum midline, oral mucosa moist. Neck supple, JVD noticed. Respiratory: Bilaterally clear breath sounds. No use of accessory muscles of respiration. No adventitious breath sounds. Cardiovascular: S1, S2 heard. Regular rate and rhythm. Abdomen: Soft and nondistended. Midline surgical scar. Diffuse abdominal tenderness. Bowel sounds positive in all 4 quadrants. Genitourinary: Deferred. Extremities: No cyanosis, no clubbing, no edema. Peripheral pulses palpable. Neurologic: Cranial nerves II through XII grossly intact. The patient is awake, alert, and oriented. Skin: Normal skin turgor. No skin rashes. Labs & Vitals per chart ASSESSMENT & PLAN This is a 48-year-old female with comorbidities including nonischemic congestive heart failure and hypertension, who came to the emergency room with a chief complaint of cough and dyspnea. The patient relates the dyspnea with exertion. The patient was also complaining of abdominal pain. The patient ran out of her Lasix for the past few days. The patient was admitted to inpatient setting for further treatment and evaluation. 1. Acute on chronic systolic heart failure. -Continue diuretic therapy. 2. Possible underlying upper respiratory infection. -Start Zithromax. 3. Abdominal pain. -Etiology unclear. -Obtain abdominal imaging. 4. Nonischemic cardiomyopathy. -Continue beta-blockers, ROSALIND inhibitors, and aldosterone antagonist. 5. Fluids, electrolytes, and nutrition. Low-cholesterol diet. 6. DVT prophylaxis. Subcutaneous heparin. 7. Plan. -Continue diuresis. -Start Zithromax. -Obtain abdominal imaging. The patient was seen in collaboration with Dr. Evans. Result Diagram: 2/19/19 2120 2/19/19 2120 Results 24hrs Laboratory Tests Test 10/23/18 21:20 10/23/18 23:28 10/24/18 10:35 White Blood Count 8.9 Red Blood Count 4.67 Hemoglobin 13.3 Hematocrit 41.8 Mean Corpuscular Volume 89.5 Mean Corpuscular Hemoglobin 28.5 L Mean Corpuscular Hemoglobin Concent 31.8 L Red Cell Distribution Width 13.4 Platelet Count 214 Mean Platelet Volume 11.8 H Immature Granulocytes % 0.300 Neutrophils % 66.8 Lymphocytes % 23.9 Monocytes % 7.4 Eosinophils % 1.2 Basophils % 0.4 Nucleated Red Blood Cells % 0.0 Immature Granulocytes # 0.030 Neutrophils # 6.0 Lymphocytes # 2.1 Monocytes # 0.7 Eosinophils # 0.1 Basophils # 0.0 Nucleated Red Blood Cells # 0.0 Sodium Level 137 Potassium Level 4.5 Chloride Level 101 Carbon Dioxide Level 28 Anion Gap 8 Blood Urea Nitrogen 21 H Creatinine 0.78 Est Glomerular Filtrat Rate mL/min > 60 Glucose Level 103 Calcium Level 9.3 Troponin I 0.017 B-Type Natriuretic Peptide 3340 H Lab Scanned Report LAB Exam/Review of Systems Exam Vitals Vital Signs Date Temp Pulse Resp B/P (MAP) Pulse Ox O2 O2 Flow FiO2 Time Delivery Rate 10/24/18 84 12:04 10/24/18 98.8 16 102/56 96 11:17 (71) 10/24/18 Room Air 01:45 10/23/18 21 23:40 Intake and Output 10/23/18 10/23/18 10/24/18 1515:00 23:00 07:00 IntakeIntake Total 400 ml BalanceBalance 400 ml Results Results 24hrs Laboratory Tests Test 10/23/18 21:20 10/23/18 23:28 10/24/18 10:35 White Blood Count 8.9 Red Blood Count 4.67 Hemoglobin 13.3 Hematocrit 41.8 Mean Corpuscular Volume 89.5 Mean Corpuscular Hemoglobin 28.5 L Mean Corpuscular Hemoglobin Concent 31.8 L Red Cell Distribution Width 13.4 Platelet Count 214 Mean Platelet Volume 11.8 H Immature Granulocytes % 0.300 Neutrophils % 66.8 Lymphocytes % 23.9 Monocytes % 7.4 Eosinophils % 1.2 Basophils % 0.4 Nucleated Red Blood Cells % 0.0 Immature Granulocytes # 0.030 Neutrophils # 6.0 Lymphocytes # 2.1 Monocytes # 0.7 Eosinophils # 0.1 Basophils # 0.0 Nucleated Red Blood Cells # 0.0 Sodium Level 137 Potassium Level 4.5 Chloride Level 101 Carbon Dioxide Level 28 Anion Gap 8 Blood Urea Nitrogen 21 H Creatinine 0.78 Est Glomerular Filtrat Rate mL/min > 60 Glucose Level 103 Calcium Level 9.3 Troponin I 0.017 B-Type Natriuretic Peptide 3340 H Lab Scanned Report LAB Medications Medication Current Medications Nitroglycerin (Nitroglycerin (Sl Tab) 0.4 Mg) 1 tab Q5M UP TO 3 DOSES PRN SL .CHEST PAIN Last administered on 10/23/18at 23:25; Admin Dose 1 TAB; Start 10/23/18 at 23:30 Nitroglycerin (Nitroglycerin (Sl Tab) 0.4 Mg) 1 tab Q5M UP TO 3 DOSES PRN SL .CHEST PAIN; Start 10/24/18 at 00:00 Ondansetron HCl (Zofran Inj) 4 mg ER BRIDGE PRN IV NAUSEA/VOMITING; Start 10/24/18 at 00:00; Stop 10/24/18 at 23:59 Acetaminophen (Tylenol Tab) 650 mg ER BRIDGE PRN PO .MILD PAIN 1-3 OR TEMP; Start 10/24/18 at 00:00; Stop 10/24/18 at 23:59 Furosemide (Lasix) 40 mg BID DIURETICS IV Last administered on 10/24/18at 05:45; Admin Dose 40 MG; Start 10/24/18 at 06:00 IV Flush (NS 3 ml) 3 ml PER PROTOCOL IV ; Start 10/24/18 at 01:00 Acetaminophen/ Hydrocodone Bitart ([place] (5/325)) 1 tab Q6H PRN PO .MOD PAIN 4- 6; Start 10/24/18 at 01:00 Heparin Sodium (Porcine) (Heparin (5000 Units/1ml)) 5,000 unit Q12 SC Last administered on 10/24/18at 08:54; Admin Dose 5,000 UNIT; Start 10/24/18 at 09:00 Lisinopril (Zestril) 5 mg DAILY PO Last administered on 10/24/18at 12:05; Admin Dose 5 MG; Start 10/24/18 at 09:00 Spironolactone (Aldactone) 25 mg DAILY PO Last administered on 10/24/18at 08:50; Admin Dose 25 MG; Start 10/24/18 at 09:00 Metoprolol Succinate (Toprol Xl) 25 mg DAILY PO Last administered on 10/24/18at 08:52; Admin Dose 25 MG; Start 10/24/18 at 09:00 PEEWEE WETZEL NP Oct 24, 2018 14:41
[2018-10-25] VITALS (12 sets, daily range): BP systolic 85–109; BP diastolic 54–61; PULSE 59–88; RESP 16–20
[2018-10-25] MEDS: HYDROCODONE/APAP (5/325) TAB PO PRN ×2 (00:27→23:24)
[2018-10-25] MEDS: FUROSEMIDE 40 MG INJ IV SCH (06:00)
[2018-10-25] MEDS: AZITHROMYCIN 250 MG TAB PO SCH (08:46)
[2018-10-25] MEDS: SPIRONOLACTONE 25 MG TAB PO SCH (08:47)
[2018-10-25] MEDS: HEPARIN 5,000 UNIT/1 ML VIAL SC SCH ×2 (08:48→20:30)
[2018-10-25] MEDS: METOPROLOL (XL) 25 MG TAB PO SCH (09:00)
[2018-10-25] MEDS: LISINOPRIL 5 MG TAB PO SCH (09:00)
[2018-10-25] MEDS: METOCLOPRAMIDE 10 MG INJ IV SCH ×3 (13:59→23:24)
--- NOTE | 2018-10-25 15:15 | PN ---
Date/Time of Note Date/Time of Note DATE: 10/25/18 TIME: 15:12 Assessment/Plan VTE Prophylaxis Risk score (from Ns)>0 risk: 2 SCD applied (from Ns): No SCD contraindicated: other Pharmacological prophylaxis: NA/contraindicated Pharm contraindication: low risk/ambulating Lines/Catheters IV Catheter Type (from [facility] Saline Lock Urinary Cath still in place: No Assessment/Plan Hospital Course SUBJECTIVE: Complains of abdominal pain and nausea. OBJECTIVE: Physical Exam General: Adequately build 48 year-old female lying in bed in no apparent distress. HEENT: Normocephalic, atraumatic. Eyes: Anicteric sclerae, conjunctivae clear. ENT: Nasal septum midline, oral mucosa moist. Neck supple, JVD noticed. Respiratory: Bilaterally clear breath sounds. No use of accessory muscles of respiration. No adventitious breath sounds. Cardiovascular: S1, S2 heard. Regular rate and rhythm. Abdomen: Soft and nondistended. Midline surgical scar. Diffuse abdominal tenderness. Bowel sounds positive in all 4 quadrants. Genitourinary: Deferred. Extremities: No cyanosis, no clubbing, no edema. Peripheral pulses palpable. Neurologic: Cranial nerves II through XII grossly intact. The patient is awake, alert, and oriented. Skin: Normal skin turgor. No skin rashes. Labs & Vitals per chart ASSESSMENT & PLAN This is a 48-year-old female with comorbidities including nonischemic congestive heart failure and hypertension, who came to the emergency room with a chief complaint of cough and dyspnea. The patient relates the dyspnea with exertion. The patient was also complaining of abdominal pain. The patient ran out of her Lasix for the past few days. The patient was admitted to inpatient setting for further treatment and evaluation. 1. Acute on chronic systolic heart failure. -Continue diuretic therapy. 2. Possible underlying upper respiratory infection. -Continue Zithromax. 3. Abdominal pain. -Etiology unclear. -CT scan showing moderately distended stomach with fluid and no evidence of acute inflammatory process, mass, or adenopathy. -Start prokinetics. 4. Nonischemic cardiomyopathy. -Continue beta-blockers, ROSALIND inhibitors, and aldosterone antagonist. 5. Fluids, electrolytes, and nutrition. Low-cholesterol diet. 6. DVT prophylaxis. Subcutaneous heparin. 7. Plan. -Continue diuresis. -Obtain gastroenterology consult. -Transfer the patient to Med/Surg. The patient was seen in collaboration with Dr. Evans. Result Diagram: 10/25/18 0518 10/25/18 0518 Results 24hrs Laboratory Tests Test 10/25/18 05:18 White Blood Count 12.5 #H Red Blood Count 4.90 Hemoglobin 13.9 Hematocrit 43.0 Mean Corpuscular Volume 87.8 Mean Corpuscular Hemoglobin 28.4 L Mean Corpuscular Hemoglobin Concent 32.3 Red Cell Distribution Width 13.8 Platelet Count 241 Mean Platelet Volume 11.3 H Immature Granulocytes % 0.400 Neutrophils % 76.0 Lymphocytes % 15.1 Monocytes % 7.7 Eosinophils % 0.6 Basophils % 0.2 Nucleated Red Blood Cells % 0.0 Immature Granulocytes # 0.050 H Neutrophils # 9.5 H Lymphocytes # 1.9 Monocytes # 1.0 H Eosinophils # 0.1 Basophils # 0.0 Nucleated Red Blood Cells # 0.0 Sodium Level 137 Potassium Level 4.2 Chloride Level 102 Carbon Dioxide Level 27 Anion Gap 8 Blood Urea Nitrogen 32 #H Creatinine 0.88 Est Glomerular Filtrat Rate mL/min > 60 Glucose Level 103 Hemoglobin A1c 5.5 Calcium Level 9.2 Phosphorus Level 5.3 H Magnesium Level 2.0 Total Bilirubin 0.2 Direct Bilirubin 0.00 Indirect Bilirubin 0.2 Aspartate Amino Transf (AST/SGOT) 39 Alanine Aminotransferase (ALT/SGPT) 62 Alkaline Phosphatase 92 B-Type Natriuretic Peptide 1340 H Total Protein 7.1 Albumin 3.9 Globulin 3.20 Albumin/Globulin Ratio 1.21 Exam/Review of Systems Exam Vitals Vital Signs Date Temp Pulse Resp B/P (MAP) Pulse Ox O2 O2 Flow FiO2 Time Delivery Rate 10/25/18 84 12:25 10/25/18 97.9 16 109/58 97 12:25 (75) 10/25/18 Room Air 03:03 10/23/18 21 23:40 Intake and Output 10/24/18 10/24/18 10/25/18 1515:00 23:00 07:00 IntakeIntake Total 1120 ml 120 ml BalanceBalance 1120 ml 120 ml Results Results 24hrs Laboratory Tests Test 10/25/18 05:18 White Blood Count 12.5 #H Red Blood Count 4.90 Hemoglobin 13.9 Hematocrit 43.0 Mean Corpuscular Volume 87.8 Mean Corpuscular Hemoglobin 28.4 L Mean Corpuscular Hemoglobin Concent 32.3 Red Cell Distribution Width 13.8 Platelet Count 241 Mean Platelet Volume 11.3 H Immature Granulocytes % 0.400 Neutrophils % 76.0 Lymphocytes % 15.1 Monocytes % 7.7 Eosinophils % 0.6 Basophils % 0.2 Nucleated Red Blood Cells % 0.0 Immature Granulocytes # 0.050 H Neutrophils # 9.5 H Lymphocytes # 1.9 Monocytes # 1.0 H Eosinophils # 0.1 Basophils # 0.0 Nucleated Red Blood Cells # 0.0 Sodium Level 137 Potassium Level 4.2 Chloride Level 102 Carbon Dioxide Level 27 Anion Gap 8 Blood Urea Nitrogen 32 #H Creatinine 0.88 Est Glomerular Filtrat Rate mL/min > 60 Glucose Level 103 Hemoglobin A1c 5.5 Calcium Level 9.2 Phosphorus Level 5.3 H Magnesium Level 2.0 Total Bilirubin 0.2 Direct Bilirubin 0.00 Indirect Bilirubin 0.2 Aspartate Amino Transf (AST/SGOT) 39 Alanine Aminotransferase (ALT/SGPT) 62 Alkaline Phosphatase 92 B-Type Natriuretic Peptide 1340 H Total Protein 7.1 Albumin 3.9 Globulin 3.20 Albumin/Globulin Ratio 1.21 Medications Medication Current Medications Nitroglycerin (Nitroglycerin (Sl Tab) 0.4 Mg) 1 tab Q5M UP TO 3 DOSES PRN SL .CHEST PAIN Last administered on 10/23/18at 23:25; Admin Dose 1 TAB; Start 10/23/18 at 23:30 Nitroglycerin (Nitroglycerin (Sl Tab) 0.4 Mg) 1 tab Q5M UP TO 3 DOSES PRN SL .CHEST PAIN; Start 10/24/18 at 00:00 Furosemide (Lasix) 40 mg BID DIURETICS IV Last administered on 10/24/18at 17:31; Admin Dose 40 MG; Start 10/24/18 at 06:00 IV Flush (NS 3 ml) 3 ml PER PROTOCOL IV ; Start 10/24/18 at 01:00 Acetaminophen/ Hydrocodone Bitart ([place] (5/325)) 1 tab Q6H PRN PO .MOD PAIN 4- 6 Last administered on 10/25/18at 00:27; Admin Dose 1 TAB; Start 10/24/18 at 01:00 Heparin Sodium (Porcine) (Heparin (5000 Units/1ml)) 5,000 unit Q12 SC Last administered on 10/25/18at 08:48; Admin Dose 5,000 UNIT; Start 10/24/18 at 09:00 Lisinopril (Zestril) 5 mg DAILY PO Last administered on 10/24/18at 12:05; Admin Dose 5 MG; Start 10/24/18 at 09:00 Spironolactone (Aldactone) 25 mg DAILY PO Last administered on 10/25/18at 08:47; Admin Dose 25 MG; Start 10/24/18 at 09:00 Metoprolol Succinate (Toprol Xl) 25 mg DAILY PO Last administered on 10/24/18at 08:52; Admin Dose 25 MG; Start 10/24/18 at 09:00 Azithromycin (Zithromax) 500 mg DAILY PO Last administered on 10/25/18at 08:46; Admin Dose 500 MG; Start 10/25/18 at 09:00 Metoclopramide HCl (Reglan) 5 mg Q6 IV Last administered on 10/25/18at 13:59; Admin Dose 5 MG; Start 10/25/18 at 12:00 PEEWEE WETZEL NP Oct 25, 2018 15:15
--- NOTE | 2018-10-25 17:12 | CONS ---
Assessment/Plan Assessment/Plan Hospital Course (Demo Recall) Summary Assessment and Plan: Assessment: Epigastric pain Nausea/vomiting -R/o gastroparesis versus other Abnormal imaging noted on CT scan -Moderately distended stomach with fluid Nonischemic cardiomyopathy. CHF Query URI- started on ABX Plan: N.p.o. after midnight EGD tomorrow Endoscopy - risks/benefits/alternatives/indications of procedure and sedation/anesthesia discussed with patient who states understanding and gives informed consent to proceed. Continue Reglan [id number] Further recommendations based on clinical course Patient seen in collaboration with Dr. Ramírez CC: MICHEL RAMÍREZ ; Consultation Date/Type/Reason Admit Date/Time Date of Consultation: Oct 25, 2018 Type of Consult GI Reason for Consultation Nausea/vomiting/epigastric pain Date/Time of Note DATE: 10/25/18 TIME: 17:11 Hx of Present Illness This a 48-year-old female with past medical history of chronic systolic nonischemic cardiomyopathy with ejection fraction 25% who presented to the hospital with c/o progressive epigastric pain, nausea and vomiting. Sx worse with eating. Pt notes worsening of epigastric pain with deep inspiration Review of Systems: A 12 system, review was conducted and is negative except as noted in the HPI or here. Past Medical History Medical History: congestive heart failure Home Meds Active Scripts Bumetanide* (Bumetanide*) 1 Mg Tablet, 1 MG PO DAILY for 60 Days, #60 TAB Prov:CODY MAN MD 05/12/18 Lisinopril* (Lisinopril*) 5 Mg Tablet, 5 MG PO DAILY for 60 Days, #60 TAB Prov:CODY MAN MD 05/12/18 Medications Current Medications Nitroglycerin (Nitroglycerin (Sl Tab) 0.4 Mg) 1 tab Q5M UP TO 3 DOSES PRN SL .CHEST PAIN Last administered on 10/23/18at 23:25; Admin Dose 1 TAB; Start 10/23/18 at 23:30 Nitroglycerin (Nitroglycerin (Sl Tab) 0.4 Mg) 1 tab Q5M UP TO 3 DOSES PRN SL . CHEST PAIN; Start 10/24/18 at 00:00 IV Flush (NS 3 ml) 3 ml PER PROTOCOL IV ; Start 10/24/18 at 01:00 Acetaminophen/ Hydrocodone Bitart ([place] (5/325)) 1 tab Q6H PRN PO .MOD PAIN 4- 6 Last administered on 10/25/18at 00:27; Admin Dose 1 TAB; Start 10/24/18 at 01:00 Heparin Sodium (Porcine) (Heparin (5000 Units/1ml)) 5,000 unit Q12 SC Last administered on 10/25/18at 08:48; Admin Dose 5,000 UNIT; Start 10/24/18 at 09:00 Lisinopril (Zestril) 5 mg DAILY PO Last administered on 10/24/18at 12:05; Admin Dose 5 MG; Start 10/24/18 at 09:00 Spironolactone (Aldactone) 25 mg DAILY PO Last administered on 10/25/18at 08:47; Admin Dose 25 MG; Start 10/24/18 at 09:00 Metoprolol Succinate (Toprol Xl) 25 mg DAILY PO Last administered on 10/24/18at 08:52; Admin Dose 25 MG; Start 10/24/18 at 09:00 Azithromycin (Zithromax) 500 mg DAILY PO Last administered on 10/25/18at 08:46; Admin Dose 500 MG; Start 10/25/18 at 09:00 Metoclopramide HCl (Reglan) 5 mg Q6 IV Last administered on 10/25/18at 13:59; Admin Dose 5 MG; Start 10/25/18 at 12:00 Pantoprazole (Protonix Iv) 40 mg BID@06,18 IV ; Start 10/25/18 at 18:00 Furosemide (Lasix) 20 mg BID DIURETICS PO ; Start 10/25/18 at 18:00 Allergies: Coded Allergies: No Known Drug Allergies (Verified Allergy, Unknown, 05/08/18) Past Surgical History Past Surgical Hx: no surgical history Social History Alcohol Use: none Smoking Status: Never smoker Drug Use: none Exam/Review of Systems Exam Vitals Vital Signs Date Temp Pulse Resp B/P (MAP) Pulse Ox O2 O2 Flow FiO2 Time Delivery Rate 10/25/18 75 16:17 10/25/18 97.6 16 93/60 (71) 93 15:40 10/25/18 Room Air 03:03 10/23/18 21 23:40 Intake and Output 10/24/18 10/24/18 10/25/18 1515:00 23:00 07:00 IntakeIntake Total 1120 ml 120 ml BalanceBalance 1120 ml 120 ml Constitutional: alert, oriented Head: normocephalic Eyes: nl conjunctiva, EOMI ENMT: nl external ears & nose, nl lips & teeth Neck: supple, non-tender Respiratory: clear to auscultation Cardiovascular: regular rate and rhythm, nl pulses Gastrointestinal: soft, bowel sounds, tender (epigastric); No ascites Results Result Diagram: 10/25/1818 10/25/1818 Results 24hrs Laboratory Tests Test 10/25/18 05:18 White Blood Count 12.5 #H Red Blood Count 4.90 Hemoglobin 13.9 Hematocrit 43.0 Mean Corpuscular Volume 87.8 Mean Corpuscular Hemoglobin 28.4 L Mean Corpuscular Hemoglobin Concent 32.3 Red Cell Distribution Width 13.8 Platelet Count 241 Mean Platelet Volume 11.3 H Immature Granulocytes % 0.400 Neutrophils % 76.0 Lymphocytes % 15.1 Monocytes % 7.7 Eosinophils % 0.6 Basophils % 0.2 Nucleated Red Blood Cells % 0.0 Immature Granulocytes # 0.050 H Neutrophils # 9.5 H Lymphocytes # 1.9 Monocytes # 1.0 H Eosinophils # 0.1 Basophils # 0.0 Nucleated Red Blood Cells # 0.0 Sodium Level 137 Potassium Level 4.2 Chloride Level 102 Carbon Dioxide Level 27 Anion Gap 8 Blood Urea Nitrogen 32 #H Creatinine 0.88 Est Glomerular Filtrat Rate mL/min > 60 Glucose Level 103 Hemoglobin A1c 5.5 Calcium Level 9.2 Phosphorus Level 5.3 H Magnesium Level 2.0 Total Bilirubin 0.2 Direct Bilirubin 0.00 Indirect Bilirubin 0.2 Aspartate Amino Transf (AST/SGOT) 39 Alanine Aminotransferase (ALT/SGPT) 62 Alkaline Phosphatase 92 B-Type Natriuretic Peptide 1340 H Total Protein 7.1 Albumin 3.9 Globulin 3.20 Albumin/Globulin Ratio 1.21 Medications Medication Current Medications Nitroglycerin (Nitroglycerin (Sl Tab) 0.4 Mg) 1 tab Q5M UP TO 3 DOSES PRN SL .CHEST PAIN Last administered on 10/23/18at 23:25; Admin Dose 1 TAB; Start 10/23/18 at 23:30 Nitroglycerin (Nitroglycerin (Sl Tab) 0.4 Mg) 1 tab Q5M UP TO 3 DOSES PRN SL .CHEST PAIN; Start 10/24/18 at 00:00 IV Flush (NS 3 ml) 3 ml PER PROTOCOL IV ; Start 10/24/18 at 01:00 Acetaminophen/ Hydrocodone Bitart ([place] (5/325)) 1 tab Q6H PRN PO .MOD PAIN 4- 6 Last administered on 10/25/18 00:27; Admin Dose 1 TAB; Start 10/24/18 at 01:00 Heparin Sodium (Porcine) (Heparin (5000 Units/1ml)) 5,000 unit Q12 SC Last administered on 10/25/18at 08:48; Admin Dose 5,000 UNIT; Start 10/24/18 at 09:00 Lisinopril (Zestril) 5 mg DAILY PO Last administered on 10/24/18 12:05; Admin Dose 5 MG; Start 10/24/18 at 09:00 Spironolactone (Aldactone) 25 mg DAILY PO Last administered on 10/25/18at 08:47; Admin Dose 25 MG; Start 10/24/18 at 09:00 Metoprolol Succinate (Toprol Xl) 25 mg DAILY PO Last administered on 10/24/18at 08:52; Admin Dose 25 MG; Start 10/24/18 at 09:00 Azithromycin (Zithromax) 500 mg DAILY PO Last administered on 10/25/18 08:46; Admin Dose 500 MG; Start 10/25/18 at 09:00 Metoclopramide HCl (Reglan) 5 mg Q6 IV Last administered on 10/25/18at 13:59; A dmin Dose 5 MG; Start 10/25/18 at 12:00 Pantoprazole (Protonix Iv) 40 mg BID@06,18 IV ; Start 10/25/18 at 18:00 Furosemide (Lasix) 20 mg BID DIURETICS PO ; Start 10/25/18 at 18:00 ЮЛИЯ DORANTES Oct 25, 2018 17:12
[2018-10-25] MEDS: PANTOPRAZOLE 40 MG INJ IV SCH (17:20)
[2018-10-25] MEDS: FUROSEMIDE 20 MG TAB PO SCH (17:21)
[2018-10-26] VITALS (24 sets, daily range): BP systolic 87–104; BP diastolic 54–69; PULSE 65–99; RESP 16–23
[2018-10-26] MEDS: PANTOPRAZOLE 40 MG INJ IV SCH ×2 (05:41→18:39)
[2018-10-26] MEDS: FUROSEMIDE 20 MG TAB PO SCH ×2 (05:42→18:00)
[2018-10-26] MEDS: METOCLOPRAMIDE 10 MG INJ IV SCH ×4 (05:42→23:04)
[2018-10-26] MEDS ORDERED: PROPOFOL 200 MG INJ ONE (07:00)
[2018-10-26] MEDS: HEPARIN 5,000 UNIT/1 ML VIAL SC SCH ×2 (09:00→20:59)
--- NOTE | 2018-10-26 10:43 | PN ---
Date/Time of Note Date/Time of Note DATE: 10/26/18 TIME: 10:42 Assessment/Plan VTE Prophylaxis Risk score (from Ns)>0 risk: 1 SCD applied (from Ns): No SCD contraindicated: other Pharmacological prophylaxis: heparin Lines/Catheters IV C[facility]ter Type (from [facility] [place] Lock Urinary Cath still in place: No Assessment/Plan Hospital Course SUBJECTIVE: Denies any abdominal pain. OBJECTIVE: Physical Exam General: Adequately build 48 year-old female lying in bed in no apparent distress. HEENT: Normocephalic, atraumatic. Eyes: Anicteric sclerae, conjunctivae clear. ENT: Nasal septum midline, oral mucosa moist. Neck supple, JVD noticed. Respiratory: Bilaterally clear breath sounds. No use of accessory muscles of respiration. No adventitious breath sounds. Cardiovascular: S1, S2 heard. Regular rate and rhythm. Abdomen: Soft, nontender, and nondistended. Midline surgical scar. Bowel sounds positive in all 4 quadrants. Genitourinary: Deferred. Extremities: No cyanosis, no clubbing, no edema. Peripheral pulses palpable. Neurologic: Cranial nerves II through XII grossly intact. The patient is awake, alert, and oriented. Skin: Normal skin turgor. No skin rashes. Labs & Vitals per chart ASSESSMENT & PLAN This is a 48-year-old female with comorbidities including nonischemic congestive heart failure and hypertension, who came to the emergency room with a chief complaint of cough and dyspnea. The patient relates the dyspnea with exertion. The patient was also complaining of abdominal pain. The patient ran out of her Lasix for the past few days. The patient was admitted to inpatient setting for further treatment and evaluation. 1. Acute on chronic systolic heart failure. -Continue diuretic therapy. 2. Possible underlying upper respiratory infection. -Continue Zithromax. 3. Abdominal pain. -Etiology unclear. -CT scan showing moderately distended stomach with fluid and no evidence of acute inflammatory process, mass, or adenopathy. -Continue prokinetics. -Scheduled for esophagogastroduodenoscopy on 10/26/2018. 4. Nonischemic cardiomyopathy. -Continue beta-blockers, ROSALIND inhibitors, and aldosterone antagonist. 5. Fluids, electrolytes, and nutrition. Low-cholesterol diet. 6. DVT prophylaxis. Subcutaneous heparin. 7. Plan. -Continue diuresis. -Await esophagogastroduodenoscopy. The patient was seen in collaboration with Dr. Evans. Result Diagram: 10/26/18 0511 10/26/18 0511 Results 24hrs Laboratory Tests Test 10/26/18 05:11 White Blood Count 6.0 # Red Blood Count 4.85 Hemoglobin 13.7 Hematocrit 42.6 Mean Corpuscular Volume 87.8 Mean Corpuscular Hemoglobin 28.2 L Mean Corpuscular Hemoglobin Concent 32.2 Red Cell Distribution Width 13.6 Platelet Count 244 Mean Platelet Volume 11.8 H Immature Granulocytes % 0.300 Neutrophils % 54.3 Lymphocytes % 30.8 Monocytes % 11.9 H Eosinophils % 2.2 Basophils % 0.5 Nucleated Red Blood Cells % 0.0 Immature Granulocytes # 0.020 Neutrophils # 3.2 Lymphocytes # 1.8 Monocytes # 0.7 Eosinophils # 0.1 Basophils # 0.0 Nucleated Red Blood Cells # 0.0 Sodium Level 138 Potassium Level 4.3 Chloride Level 102 Carbon Dioxide Level 29 Anion Gap 7 Blood Urea Nitrogen 28 H Creatinine 0.93 Est Glomerular Filtrat Rate mL/min > 60 Glucose Level 86 Calcium Level 9.2 Phosphorus Level 4.9 Magnesium Level 2.1 B-Type Natriuretic Peptide 870 H Exam/Review of Systems Exam Vitals Vital Signs Date Temp Pulse Resp B/P (MAP) Pulse Ox O2 O2 Flow FiO2 Time Delivery Rate 10/26/18 68 08:42 10/26/18 98.6 19 94/64 (74) 96 07:18 10/25/18 Room Air 19:46 10/23/18 21 23:40 Intake and Output 10/25/18 10/25/18 10/26/18 1414:59 22:59 06:59 IntakeIntake Total 1120 ml BalanceBalance 1120 ml Results Results 24hrs Laboratory Tests Test 10/26/18 05:11 White Blood Count 6.0 # Red Blood Count 4.85 Hemoglobin 13.7 Hematocrit 42.6 Mean Corpuscular Volume 87.8 Mean Corpuscular Hemoglobin 28.2 L Mean Corpuscular Hemoglobin Concent 32.2 Red Cell Distribution Width 13.6 Platelet Count 244 Mean Platelet Volume 11.8 H Immature Granulocytes % 0.300 Neutrophils % 54.3 Lymphocytes % 30.8 Monocytes % 11.9 H Eosinophils % 2.2 Basophils % 0.5 Nucleated Red Blood Cells % 0.0 Immature Granulocytes # 0.020 Neutrophils # 3.2 Lymphocytes # 1.8 Monocytes # 0.7 Eosinophils # 0.1 Basophils # 0.0 Nucleated Red Blood Cells # 0.0 Sodium Level 138 Potassium Level 4.3 Chloride Level 102 Carbon Dioxide Level 29 Anion Gap 7 Blood Urea Nitrogen 28 H Creatinine 0.93 Est Glomerular Filtrat Rate mL/min > 60 Glucose Level 86 Calcium Level 9.2 Phosphorus Level 4.9 Magnesium Level 2.1 B-Type Natriuretic Peptide 870 H Medications Medication Current Medications Nitroglycerin (Nitroglycerin (Sl Tab) 0.4 Mg) 1 tab Q5M UP TO 3 DOSES PRN SL .CHEST PAIN Last administered on 10/23/18at 23:25; Admin Dose 1 TAB; Start 10/23/18 at 23:30 Nitroglycerin (Nitroglycerin (Sl Tab) 0.4 Mg) 1 tab Q5M UP TO 3 DOSES PRN SL .CHEST PAIN; Start 10/24/18 at 00:00 IV Flush (NS 3 ml) 3 ml PER PROTOCOL IV ; Start 10/24/18 at 01:00 Acetaminophen/ Hydrocodone Bitart ([place] (5/325)) 1 tab Q6H PRN PO .MOD PAIN 4- 6 Last administered on 10/25/18at 23:24; Admin Dose 1 TAB; Start 10/24/18 at 01:00 Heparin Sodium (Porcine) (Heparin (5000 Units/1ml)) 5,000 unit Q12 SC Last administered on 10/25/18at 20:30; Admin Dose 5,000 UNIT; Start 10/24/18 at 09:00 Lisinopril (Zestril) 5 mg DAILY PO Last administered on 10/24/18at 12:05; Admin Dose 5 MG; Start 10/24/18 at 09:00 Spironolactone (Aldactone) 25 mg DAILY PO Last administered on 10/25/18at 08:47; Admin Dose 25 MG; Start 10/24/18 at 09:00 Metoprolol Succinate (Toprol Xl) 25 mg DAILY PO Last administered on 10/24/18at 08:52; Admin Dose 25 MG; Start 10/24/18 at 09:00 Azithromycin (Zithromax) 500 mg DAILY PO Last administered on 10/25/18at 08:46; Admin Dose 500 MG; Start 10/25/18 at 09:00 Metoclopramide HCl (Reglan) 5 mg Q6 IV Last administered on 10/26/18at 05:42; Admin Dose 5 MG; Start 10/25/18 at 12:00 Pantoprazole (Protonix Iv) 40 mg BID@06,18 IV Last administered on 10/26/18at 05:41; Admin Dose 40 MG; Start 10/25/18 at 18:00 Furosemide (Lasix) 20 mg BID DIURETICS PO ; Start 10/25/18 at 18:00 PEEWEE WETZEL NP Oct 26, 2018 10:43
--- NOTE | 2018-10-26 17:01 | PREAC ---
Date/Time of Note Date/Time of Note DATE: 10/26/18 TIME: 16:59 Anesthesia Eval and Record Evaluation Time Pre-Procedure Interview DATE: 10/26/18 TIME: 16:59 Age 48 Sex female NPO: 8 hrs Preoperative diagnosis N/V, abdominal pain Planned procedure EGD Past Medical History Past Medical History: Includes Cardio: HTN, CHF Surgery & Anesthesia Issues No known issue Meds Anticoagulation: No Beta Charlene within 24 hr: No Reason Beta Charlene not given: Pt. not on B-Charlene Active Scripts Bumetanide* (Bumetanide*) 1 Mg Tablet, 1 MG PO DAILY for 60 Days, #60 TAB Prov:CODY MAN MD 05/12/18 Lisinopril* (Lisinopril*) 5 Mg Tablet, 5 MG PO DAILY for 60 Days, #60 TAB Prov:CODY MAN MD 05/12/18 Current Medications Nitroglycerin (Nitroglycerin (Sl Tab) 0.4 Mg) 1 tab Q5M UP TO 3 DOSES PRN SL .CHEST PAIN Last administered on 10/23/18at 23:25; Admin Dose 1 TAB; Start 10/23/18 at 23:30 Nitroglycerin (Nitroglycerin (Sl Tab) 0.4 Mg) 1 tab Q5M UP TO 3 DOSES PRN SL .CHEST PAIN; Start 10/24/18 at 00:00 IV Flush (NS 3 ml) 3 ml PER PROTOCOL IV ; Start 10/24/18 at 01:00 Acetaminophen/ Hydrocodone Bitart ([place] (5/325)) 1 tab Q6H PRN PO .MOD PAIN 4- 6 Last administered on 10/25/18at 23:24; Admin Dose 1 TAB; Start 10/24/18 at 01:00 Heparin Sodium (Porcine) (Heparin (5000 Units/1ml)) 5,000 unit Q12 SC Last administered on 10/25/18at 20:30; Admin Dose 5,000 UNIT; Start 10/24/18 at 09:00 Lisinopril (Zestril) 5 mg DAILY PO Last administered on 10/24/18at 12:05; Admin Dose 5 MG; Start 10/24/18 at 09:00 Spironolactone (Aldactone) 25 mg DAILY PO Last administered on 10/25/18at 08:47; Admin Dose 25 MG; Start 10/24/18 at 09:00 Metoprolol Succinate (Toprol Xl) 25 mg DAILY PO Last administered on 10/24/18at 08:52; Admin Dose 25 MG; Start 10/24/18 at 09:00 Azithromycin (Zithromax) 500 mg DAILY PO Last administered on 10/25/18at 08:46; Admin Dose 500 MG; Start 10/25/18 at 09:00 Metoclopramide HCl (Reglan) 5 mg Q6 IV Last administered on 10/26/18at 14:29; Admin Dose 5 MG; Start 10/25/18 at 12:00 Pantoprazole (Protonix Iv) 40 mg BID@,18 IV Last administered on 10/26/18at 05:41; Admin Dose 40 MG; Start 10/25/18 at 18:00 Furosemide (Lasix) 20 mg BID DIURETICS PO ; Start 10/25/18 at 18:00 Meds reviewed: Yes Allergies Coded Allergies: No Known Drug Allergies (Verified Allergy, Unknown, 05/08/18) Allergies Reviewed: Yes Labs/Studies Labs Reviewed: Reviewed by anesthesiologist Result Diagram: 10/26/1851010/26/18510 Laboratory Tests 10/26/18 05:11 test: Negative Pre-procedure Exam Last vitals Vital Signs Date Temp Pulse Resp B/P (MAP) Pulse Ox O2 O2 Flow FiO2 Time Delivery Rate 10/26/18 75 16:02 10/26/18 98.4 19 94/55 (68) 98 15:21 10/25/18 Room Air 19:46 10/23/18 21 23:40 Airway: Adequate mouth opening, Adequate thyromental dist Mallampati: Mallampati II Teeth: Normal Lung: Normal Heart: Normal ASA Physical Status ASA physical status: 3 Emergency: None Planned Anesthetic General/MAC: MAC Planned Pain Management Parenteral pain med Pre-operative Attestations Prior to commencing anesthesia and surgery, the patient was re-evaluated, there was verification of: *The patient's identity *The results of appropriate recent lab work and preoperative vital signs *The above evaluation not changing prior to induction *Anesthetic plan, risk benefits, alternative and complications discussed with patient/family; questions answered; patient/family understands, accepts and wishes to proceed. MALORIE FRANCIS MD Oct 26, 2018 17:01
[2018-10-26] MEDS ORDERED: LIDOCAINE 2% (SDV) 5 ML INJ ONE (17:02)
[2018-10-26] MEDS ORDERED: PROPOFOL 40 ML ONE (17:02)
--- NOTE | 2018-10-26 17:09 | HPN ---
Date/Time of Note Date/Time of Note DATE: 10/26/18 TIME: 17:08 Interval H&P Admission Note Pt. seen H&P reviewed: No system changes HARRY ROME MD Oct 26, 2018 17:09
--- NOTE | 2018-10-26 17:15 | PAC ---
Date/Time of Note Date/Time of Note DATE: 10/26/18 TIME: 17:15 Post-Anesthesia Notes Post-Anesthesia Note Last documented vital signs Vital Signs Date Temp Pulse Resp B/P (MAP) Pulse Ox O2 O2 Flow FiO2 Time Delivery Rate 10/26/18 97.8 72 20 98/59 (72) 99 Room Air 17:00 10/23/18 21 23:40 Activity: WNL Respiratory function: WNL Cardiovascular function: WNL Mental status: Baseline Pain reasonably controlled: Yes Hydration appropriate: Yes Nausea/Vomiting absent: Yes Comments BP:112/65, P:87, spo2:100%, T:98,8 MALORIE FRANCIS MD Oct 26, 2018 17:15
[2018-10-26] MEDS ORDERED: ONDANSETRON 4 MG INJ IV PRN (17:30)
[2018-10-26] MEDS ORDERED: FENTAnyl 50 MCG/ML VIAL IV PRN (17:30)
[2018-10-26] MEDS: AZITHROMYCIN 250 MG TAB PO SCH (18:39)
[2018-10-26] MEDS: SPIRONOLACTONE 25 MG TAB PO SCH (18:40)
[2018-10-26] MEDS: METOPROLOL (XL) 25 MG TAB PO SCH (18:40)
[2018-10-26] MEDS: LISINOPRIL 5 MG TAB PO SCH (18:41)
[2018-10-26] MEDS ORDERED: traZODone 50 MG TAB PO ONE (23:30)
[2018-10-27] VITALS: PULSE 81
[2018-10-27 04:08] VITALS: BP 106/59; PULSE 77; RESP 18
[2018-10-27 04:10] VITALS: PULSE 76
[2018-10-27] MEDS: FUROSEMIDE 20 MG TAB PO SCH (05:07)
[2018-10-27] MEDS: METOCLOPRAMIDE 10 MG INJ IV SCH (05:07)
[2018-10-27] MEDS: PANTOPRAZOLE 40 MG INJ IV SCH (05:07)
[2018-10-27 07:11] VITALS: BP 98/61; PULSE 81; RESP 18
[2018-10-27 08:01] VITALS: PULSE 72
[2018-10-27] MEDS: METOPROLOL (XL) 25 MG TAB PO SCH (08:45)
[2018-10-27] MEDS: SPIRONOLACTONE 25 MG TAB PO SCH (08:45)
[2018-10-27] MEDS: AZITHROMYCIN 250 MG TAB PO SCH (08:47)
[2018-10-27] MEDS: LISINOPRIL 5 MG TAB PO SCH (08:48)
[2018-10-27] MEDS: HEPARIN 5,000 UNIT/1 ML VIAL SC SCH (08:55)
[2018-10-27] MEDS ORDERED: METO-335 PO (09:37)
[2018-10-27] MEDS ORDERED: LAS20 PO (09:37)
[2018-10-27] MEDS ORDERED: PANT40TA3 PO (09:37)
--- NOTE | 2018-10-27 09:41 | PDOCDIS ---
Discharge Instructions CONDITION [id number] Patient Condition: [id number] Stable HOME CARE INSTRUCTIONS: [id number] Diet Instructions: [id number] Low Fat /Cholesterol FOLLOW UP/APPOINTMENTS Follow-up Plan Vineet Velarde MD Specialty: Internal Medicine Office Address: [address] [place], [place] [id number] Office OTHER ORDERS: Other Orders: 1. Take medications as per prescription. 2. Follow a low-cholesterol, low-sodium diet. 3. Resume activities as tolerated. 4. Follow-up with your primary care physician in 2 weeks. If you do not have a primary care physician, please call Dr. Vineet Velarde's office. 5. Please go to the nearest emergency room if you have any chest pain, shortness of breath, significant abdominal pain, persistent nausea/vomiting, or any other unusual signs/symptoms. PEEWEE WETZEL NP Oct 27, 2018 09:41
--- NOTE | 2018-10-27 09:58 | DS ---
Date/Time of Note Date/Time of Note DATE: 10/27/18 TIME: 09:56 Discharge Summary Admission/Discharge Info Admit Date/Time Oct 25, 2018 at 07:55 Discharge Date/Time Discharge Diagnosis 1. Acute on chronic systolic heart failure. 2. Possible underlying upper respiratory infection. 3. Pulmonary hypertension. PA systolic pressure 41 mmHg. 4. Nonischemic cardiomyopathy. 5. Mild distal esophagitis. 6. Moderate gastritis. 7. Moderate duodenitis. Patient Condition: Stable Consults 1. Andi Arriola MD, Gastroenterology. Procedures Esophagogastroduodenoscopy Impression: Bilateral inlet patches. Mild distal esophagitis. Moderate gastritis. Moderate duodenitis. CT Abdomen and Pelvis IMPRESSION: 1. No acute inflammatory process, mass, or adenopathy. 2. Moderately distended stomach with fluid. Question gastroparesis. 3. Normal appendix and terminal ileum. 4. Mild cardiomegaly. 5. 3 cm subserosal fibroid Hx of Present Illness This is a 48-year-old female with comorbidities including nonischemic congestive heart failure and hypertension, who came to the emergency room with a chief complaint of cough and dyspnea. The patient relates the dyspnea with exertion. The patient was also complaining of abdominal pain. The patient ran out of her Lasix for the past few days. The patient was admitted to inpatient setting for further treatment and evaluation. Hospital Course The patient was admitted to inpatient setting. The patient was started on diuretic therapy. The patient's symptoms of dyspnea and orthopnea improved. The patient has known history of nonischemic cardiomyopathy. The patient was started on beta-blockers, ROSALIND inhibitors, and aldosterone antagonist. However, the patient's blood pressure remained borderline low. Therefore, the patient will be discharged home on beta-blockers and ROSALIND inhibitors only along with low- dose Lasix. The patient reported she ran out of her diuretics at home that have precipitated this attack. The patient was also complaining of sore throat and cough. The patient was given Zithromax Tri-Keith with improvement in the patient's symptoms. The patient also has a history of pulmonary hypertension with a PA systolic pressure of 41 mmHg. This could be most probably secondary to her left heart disease. The patient was also complaining of abdominal pain with nausea and vomiting. Therefore, the patient underwent a CT scan of the abdomen and pelvis that showed moderately distended stomach with fluid and possible underlying gastroparesis. The patient was started on prokinetic therap y with minimal improvement in the patient's symptoms. A gastroenterology consult was obtained. The patient underwent an esopha gogastroduodenoscopy on 10/26/2018 which showed mild distal esophagitis, moderate gastritis, and moderate duodenitis. The etiology remains unclear. The patient denied using any NSAIDs chronically. The patient is not an alcohol abuser. Pathology including H. pylori is pending at this time. Meanwhile, the patient will be continued on proton pump inhibitors as per gastroenterology. The patient is euvolemic now. The patient's abdominal pain is significantly resolved. The patient is stable for outpatient therapy. The patient will be discharged home, to be followed up with outpatient salon receptionist. Discharge Instructions 1. Take medications as per prescription. 2. Follow a low-cholesterol, low-sodium diet. 3. Resume activities as tolerated. 4. Follow-up with your primary care physician in 2 weeks. If you do not have a primary care physician, please call Dr. Vineet Velarde's office. 5. Please go to the nearest emergency room if you have any chest pain, shortness of breath, significant abdominal pain, persistent nausea/vomiting, or any other unusual signs/symptoms. The patient verbalized understanding of her discharge instructions. At this time I would like to thank all the consultants for seeing the patient, doing the necessary procedures, and providing clinical recommendations. The patient was seen in collaboration with Dr. Evans. Home Meds Active Scripts Lisinopril* (Lisinopril*) 2.5 Mg Tablet, 2.5 MG PO DAILY, #30 TAB Prov:PEEWEE WETZEL NP 10/27/18 Pantoprazole* (Protonix*) 40 Mg Tablet.dr, 40 MG PO BID, #60 TAB Prov:PEEWEE WETZEL NP 10/27/18 Metoprolol Succinate* (Toprol XL*) 25 Mg Tab.sr.24h, 25 MG PO DAILY, #30 TAB Prov:PEEWEE WETZEL NP 10/27/18 Furosemide (Lasix) 20 Mg Tab, 20 MG PO BID DIURETICS, #60 TAB Prov:PEEWEE WETZEL NP 10/27/18 Discontinued Scripts Bumetanide* (Bumetanide*) 1 Mg Tablet, 1 MG PO DAILY for 60 Days, #60 TAB Prov:CODY MAN MD 05/12/18 Lisinopril* (Lisinopril*) 5 Mg Tablet, 5 MG PO DAILY for 60 Days, #60 TAB Prov:CODY MAN MD 05/12/18 Follow-up Plan Vineet Velarde MD Specialty: Internal Medicine Office Address: [address] [place] [address] Office Primary Care Provider Care Physician No Primary Time spent on discharge: > 30 minutes PEEWEE WETZEL NP Oct 27, 2018 09:58
[2018-10-27] MEDS ORDERED: LISI2.5T59 PO (10:00)
[2018-10-27 11:37] VITALS: BP 115/80; PULSE 79; RESP 19
== END 2018-10-27 11:50 | disposition home or self-care (01) | DRG 293 ==
LOC: E/R 20:01 → 6WM 23:43 → OBSVTOIN 10-25 07:55
PROVIDERS: ADMIT Internal Medicine; ATTEND Internal Medicine
PROC: 0DB78ZX Excision of Stomach, Pylorus, Via Natural or Artificial Opening Endoscopic, Diagnostic (ICD-10-PCS; 2018-10-26)
PROC: 0DB68ZX Excision of Stomach, Via Natural or Artificial Opening Endoscopic, Diagnostic (ICD-10-PCS; 2018-10-26)
PROC: 0DB58ZX Excision of Esophagus, Via Natural or Artificial Opening Endoscopic, Diagnostic (ICD-10-PCS; principal; 2018-10-26 19:30)
DX: I11.0 Hypertensive heart disease with heart failure (principal); I27.20 Pulmonary hypertension, unspecified; I42.9 Cardiomyopathy, unspecified; I50.23 Acute on chronic systolic (congestive) heart failure; R07.9 Chest pain, unspecified; J06.9 Acute upper respiratory infection, unspecified; R10.13 Epigastric pain; R11.2 Nausea with vomiting, unspecified; K29.70 Gastritis, unspecified, without bleeding; K20.9 Esophagitis, unspecified; K29.80 Duodenitis without bleeding
CPT/HCPCS: 71045; 74176; 80048; 80053; 83036; 83735; 83880; 84100; 84484; 85025; 88305; 88312; 88313; 93005; 94644; 94645; 96374; G0378; C9113; J1644; J1940; J2765; J2930

== ENCOUNTER 2018-12-22 21:39 | Inpatient (IN) | payer MEDICAID ==
[~2018-12-22] VITALS: Ht 162.6 cm; Wt 81.4 kg
[~2018-12-22 21:39] MED LIST changes: -BUME1TAB PO; +LAS20 PO; -LISI-313 PO; +LISI2.5T59 PO; +METO-335 PO; +PANT40TA3 PO
[2018-12-23] MEDS ORDERED: FAMOTIDINE 20 MG TAB PO STA (01:26)
[2018-12-23] MEDS ORDERED: morphine 4 MG/ML VIAL IV STA (01:26)
[2018-12-23] MEDS ORDERED: SOD CHLORIDE 0.9% 500 ML IV STA (01:26)
[2018-12-23] MEDS ORDERED: ONDANSETRON 4 MG INJ IV STA (01:26)
--- NOTE | 2018-12-23 01:32 | ERD ---
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 The pain is intermittent, 8 out of 10, worse with walking. She does have associated central chest pain with shortness of breath. She is not taking any of her heart failure medications. She does not take aspirin or any antihypertensives. The only medicine she is on currently is omeprazole for her gastritis. She states that she does not have a primary care doctor and does not have insurance, so she has not refilled any of her medications outpatient. She was last hospitalized in October 2018, during which time she had an EGD and was diagnosed with gastritis. Her pain is not worsened or improved with eating. She has had associated nausea with nonbloody and nonbilious vomiting. No hematochezia or melena. No constipation. No fevers or chills. She complains of significant shortness of breath, worse with walking. No recent travel or surgeries. ROS All systems reviewed and are negative except as per history of present illness. Medications Home Meds Active Scripts Lisinopril* (Lisinopril*) 2.5 Mg Tablet, 2.5 MG PO DAILY, #30 TAB Prov:PEEWEE WETZEL NP 10/27/18 Pantoprazole* (Protonix*) 40 Mg Tablet.dr, 40 MG PO BID, #60 TAB Prov:PEEWEE WETZEL NP 10/27/18 Metoprolol Succinate* (Toprol XL*) 25 Mg Tab.sr.24h, 25 MG PO DAILY, #30 TAB Prov:PEEWEE WETZEL NP 10/27/18 Furosemide (Lasix) 20 Mg Tab, 20 MG PO BID DIURETICS, #60 TAB Prov:PEEWEE WETZEL FISH INSPECTOR 10/27/18 Allergies Allergies: Coded Allergies: No Known Drug Allergies (Verified Allergy, Unknown, 05/08/18) PMhx/Soc History of Surgery: Yes ( x3) Anesthesia Reaction: No Hx Neurological Disorder: No Hx Respiratory Disorders: No Hx Cardiac Disorders: Yes (Combined CHF(EF=25%)) Hx Psychiatric Problems: No Hx Miscellaneous Medical Probl: Yes (Gastritis, esophagitis by EGD done October 2089) Hx Alcohol Use: Yes (Social) Hx Substance Use: No Hx Tobacco Use: No Smoking Status: Never smoker FmHx Family History: No diabetes Physical Exam Vitals Vital Signs Date Temp Pulse Resp B/P (MAP) Pulse Ox O2 O2 Flow FiO2 Time Delivery Rate 12/23/18 97.6 70 18 100/77 100 Room Air 05:45 (85) 12/22/18 97.6 90 18 126/89 97 21:43 (101) Physical Exam Const: Appears to be in mild respiratory distress, also on pain Head: Atraumatic Eyes: Normal Conjunctiva ENT: Normal External Ears, Nose and Mouth. Neck: Full range of motion. No meningismus. No JVD Resp: Clear to auscultation bilaterally Cardio: Regular rate and rhythm, no murmurs Abd: Soft, tender to palpation in the epigastrium and right upper quadrant with positive Oconnor sign. Non distended. Normal bowel sounds Skin: No petechiae or rashes Back: No midline or flank tenderness Ext: No cyanosis, or edema Neur: Awake and alert Psych: Normal Mood and Affect Result Diagram: 12/23/1812912/23/18129 Results 24 hrs Laboratory Tests Test 12/23/18 01:11 12/23/18 01:13 12/23/18 01:30 12/23/18 02:30 Bedside Urine pH 6.0 (LAB) Bedside Urine 2+ Protein (LAB) Bedside Urine Negative Glucose (UA) Bedside Urine Negative Ketones (LAB) Bedside Urine 3+ Blood Bedside Urine Negative Nitrite (LAB) Bedside Urine Trace Leukocyte Esteras e (L POC Beta HCG, NEGATIVE Qualitative White Blood Count 5.7 10^3/ul Red Blood Count 4.58 10^6/ul Hemoglobin 12.8 g/dl Hematocrit 40.5 % Mean Corpuscular 88.4 fl Volume Mean Corpuscular 27.9 pg Hemoglobin Mean Corpuscular 31.6 g/dl Hemoglobin Concen t Red Cell 16.1 % Distribution Width Platelet Count 190 10^3/UL Mean Platelet 11.0 fl Volume Immature 0.400 % Granulocytes % Neutrophils % 65.2 % Lymphocytes % 22.9 % Monocytes % 9.7 % Eosinophils % 1.4 % Basophils % 0.4 % Nucleated Red 0.0 /100WBC Blood Cells % Immature 0.020 10^3/ul Granulocytes # Neutrophils # 3.7 10^3/ul Lymphocytes # 1.3 10^3/ul Monocytes # 0.6 10^3/ul Eosinophils # 0.1 10^3/ul Basophils # 0.0 10^3/ul Nucleated Red 0.0 10^3/ul Blood Cells # Sodium Level 144 mmol/L Potassium Level 3.9 mmol/L Chloride Level 111 mmol/L Carbon Dioxide 24 mmol/L Level Anion Gap 9 Blood Urea 20 mg/dl Nitrogen Creatinine 0.69 mg/dl Est Glomerular > 60 mL/min Filtrat Rate mL/min Glucose Level 98 mg/dl Calcium Level 9.1 mg/dl Total Bilirubin 0.4 mg/dl Direct Bilirubin 0.00 mg/dl Indirect 0.4 mg/dl Bilirubin Aspartate Amino 36 IU/L Transf (AST/SGOT) Alanine 36 IU/L Aminotransferase (ALT/SGPT) Alkaline 80 IU/L Phosphatase Troponin I 0.024 ng/ml B-Type 4040 PG/ML Natriuretic Peptide Total Protein 6.8 g/dl Albumin 3.6 g/dl Globulin 3.20 g/dl Albumin/Globulin 1.12 Ratio Lipase 141 U/L Urine Color FER Urine Clarity CLOUDY Urine pH 6.0 Urine Specific 1.027 [place] Urine Ketones NEGATIVE mg/dL Urine Nitrite NEGATIVE mg/dL Urine Bilirubin NEGATIVE mg/dL Urine 1+ mg/dL Urobilinogen Urine Leukocyte NEGATIVE Bull/ul Esterase Urine Microscopic 22 /HPF RBC Urine Microscopic 16 /HPF WBC Urine Squamous MANY /HPF Epithelial Cells Urine Mucus FEW /HPF Urine Hemoglobin 3+ mg/dL Urine Glucose NEGATIVE mg/dL Urine Total 2+ mg/dl Protein Current Medications Medications Dose Sig/Meghan Start Time Status Last (Trade) Ordered Route PRN Stop Time Admin Dose Reason Admin Sodium 500 ml @ Q1H STAT 12/23/18 DC 12/23/18 Chloride 500 mls/hr IV 01: 01:40 12/23/18 02:25 Morphine 4 mg ONCE STAT 12/23/18 DC 12/23/18 Sulfate IV : 01:40 (morphine) 12/23/18 01:28 Ondansetron 4 mg ONCE STAT 12/23/18 DC 12/23/18 HCl (Zofran IV 01:26 01:40 Inj) 12/23/18 01:28 Famotidine 20 mg ONCE STAT 12/23/18 DC 12/23/18 (Pepcid) PO 01: 01:40 12/23/18 01:28 Piperacillin 100 ml @ ONCE ONCE 12/23/18 DC 12/23/18 Sod/ 200 mls/hr IVPB 04:00 03:48 Tazobactam 12/23/18 04:29 Sod IV Flush 10 ml STK-MED 12/23/18 DC (NS 10 ml) ONCE .ROUTE 04:15 12/23/18 04:16 Sodium 100 ml @ ud STK-MED 12/23/18 DC Chloride ONCE .ROUTE 04:15 12/23/18 04:16 Iohexol 150 ml STK-MED 12/23/18 DC (Omnipaque ONCE .ROUTE 04:15 300mg/ ml) 12/23/18 04:16 Ondansetron 4 mg BRIDGE ORDER 12/23/18 HCl (Zofran PRN IV 06:00 Inj) NAUSEA/VOMITI 12/24/18 05:59 NG 650 mg ER BRIDGE 12/23/18 Acetaminophen PRN PO 06:00 (Tylenol .MILD PAIN 12/24/18 05:59 Tab) 1-3 OR TEMP Procedures/MDM EMERGENT LABS AND DIAGNOSTIC STUDIES: Lab Results above were reviewed and interpreted by me. CBC: no anemia or evidence of infection CMP: No evidence of clinically significant electrolyte abnormality, acidosis, renal failure, hypoglycemia, liver disease, or biliary obstruction Lipase: no evidence of pancreatitis Troponin within normal limits, not indicative of cardiac ischemia 12-lead EKG was interpreted by Stas Lima MD: Normal sinus rhythm at 81 bpm Normal axis Normal intervals Anterior Q waves with poor R wave progression. Lateral T wave abnormalities with no ST elevations or depressions Abnormal EKG, no STEMI Radiology Results as interpreted by Radiology below were reviewed by Iraj Lima MD: Chest x-ray shows no acute abnormalities: Ultrasound right upper quadrant: Gallbladder wall thickening with no pericholecystic fluid or gallstones seen. Right upper quadrant free fluid. Possibly consistent with cholecystitis CT abdomen and pelvis pending Initial Nursing notes reviewed. Previous Medical Records requested via the Electronic Health Record. EMERGENCY DEPARTMENT COURSE / MEDICAL DECISION MAKING: Patient is presenting with epigastric and right upper quadrant pain. She is afebrile with unremarkable vitals. Her exam is concerning for cholecystitis. Ultrasound did not show evidence of gallstones but I do suspect acalculous cholecystitis. Given the free fluid in her right upper quadrant, CT of the abdomen and pelvis was ordered to evaluate for other possible pathology. I spoke with Dr. Payne regarding my concern for possible acalculous cholecystitis. He recommended HIDA scan. Patient will be admitted for pain control, hydration, and further workup. Accepting Care Team: Current data and ongoing care discussed. Time: Time of admission Primary Provider: Dr. Aragon Consulting: Dr. Payne Outstanding Data: CT abdomen and pelvis, HIDA scan Departure Diagnosis: Primary Impression: RUQ pain Condition: Fair GARRY LIMA MD Dec 23, 2018 01:32
[2018-12-23] MEDS ORDERED: PIPER-TAZO 3.375 GM IV (PMX) 100 ML IVPB ONE (04:00)
[2018-12-23] MEDS ORDERED: IOHEXOL 300MG/ML 150 ML BTL ONE (04:15)
[2018-12-23] MEDS ORDERED: SOD CHLORIDE 0.9% 100 ML ONE (04:15)
[2018-12-23] MEDS ORDERED: ACETAMINOPHEN 325 MG TAB PO PRN ×2 (06:00→06:30)
[2018-12-23] MEDS ORDERED: ONDANSETRON 4 MG INJ IV PRN (06:00)
[2018-12-23] MEDS ORDERED: SOD CHLORIDE 0.9% 1,000 ML IV SCH (06:09)
[2018-12-23 06:30] VITALS: BP 97/74; PULSE 69; RESP 18; Ht 162.6 cm; Wt 81.4 kg
[2018-12-23] MEDS ORDERED: BISACODYL (EC) 5 MG TAB PO PRN (06:30)
[2018-12-23] MEDS ORDERED: NITROGLYCERIN (SL) 0.4 MG TAB SL PRN (06:30)
[2018-12-23] MEDS ORDERED: DOCUSATE SODIUM 100 MG CAP PO PRN (06:30)
[2018-12-23] MEDS ORDERED: NACL 0.9% 3 ML SYG IV SCH (06:30)
--- NOTE | 2018-12-23 07:03 | HP ---
Date/Time of Note Date/Time of Note DATE: 12/23/18 TIME: 06:47 Assessment/Plan VTE Prophylaxis SCD applied (from Nsg): Yes Pharmacological prophylaxis: NA/contraindicated Pharm contraindication: low risk/ambulating Lines/Catheters IV Catheter Type (from Nrsg): Saline Lock Assessment/Plan Hospital Course This is a 48-year-old female being admitted to the [facility] floor for: #1 abdominal pain: Concern for possible underlying cholecystitis. With normal white count and afebrile however gallbladder ultrasound does show possible signs of cholecystitis. We will proceed with a HIDA scan. Zosyn IV every [address] Payne of general surgery is Paulino been consulted by the ED. We will keep the patient n.p.o. Dilaudid for pain. Zofran for nausea given her cardiac history as well will also check cardiac enzymes for completeness. #2 chronic systolic/diastolic CHF: Though there are some trace crackles in the lung she appears overall euvolemic. Will check an echocardiogram to assess c urrent function as patient has not been on medications and her BNP is elevated from prior. We will continue her Lasix and lisinopril and metoprolol. #3 Gastritis: Continue Protonix #4 DVT GI prophylaxis: SCDs, Protonix Further treatment strategy will be implemented as per the clinical course Result Diagram: 12/23/18 0130 12/23/18 013 Results 24hrs Laboratory Tests Test 12/23/18 01:11 12/23/18 01:13 12/23/18 01:30 12/23/18 02:30 Bedside Urine pH 6.0 (LAB) Bedside Urine 2+ H Protein (LAB) Bedside Urine Negative Glucose (UA) Bedside Urine Negative Ketones (LAB) Bedside Urine Blood 3+ H Bedside Urine Negative Nitrite (LAB) Bedside Urine Trace H Leukocyte Esterase (L POC Beta HCG, NEGATIVE Qualitative White Blood Count 5.7 Red Blood Count 4.58 Hemoglobin 12.8 Hematocrit 40.5 Mean Corpuscular 88.4 Volume Mean Corpuscular 27.9 L Hemoglobin Mean Corpuscular 31.6 L Hemoglobin Concent Red Cell 16.1 H Distribution Width Platelet Count 190 # Mean Platelet Volume 11.0 H Immature 0.400 Granulocytes % Neutrophils % 65.2 Lymphocytes % 22.9 Monocytes % 9.7 Eosinophils % 1.4 Basophils % 0.4 Nucleated Red Blood 0.0 Cells % Immature 0.020 Granulocytes # Neutrophils # 3.7 Lymphocytes # 1.3 Monocytes # 0.6 Eosinophils # 0.1 Basophils # 0.0 Nucleated Red Blood 0.0 Cells # Sodium Level 144 Potassium Level 3.9 Chloride Level 111 H Carbon Dioxide Level 24 Anion Gap 9 Blood Urea Nitrogen 20 Creatinine 0.69 Est Glomerular > 60 Filtrat Rate mL/min Glucose Level 98 Calcium Level 9.1 Total Bilirubin 0.4 Direct Bilirubin 0.00 Indirect Bilirubin 0.4 Aspartate Amino 36 Transf (AST/SGOT) Alanine 36 Aminotransferase (AL T/SGPT) Alkaline Phosphatase 80 Troponin I 0.024 B-Type Natriuretic 4040 H Peptide Total Protein 6.8 Albumin 3.6 Globulin 3.20 Albumin/Globulin 1.12 Ratio Lipase 141 Urine Color FER Urine Clarity CLOUDY A Urine pH 6.0 Urine Specific 1.027 [place] Urine Ketones NEGATIVE Urine Nitrite NEGATIVE Urine Bilirubin NEGATIVE Urine Urobilinogen 1+ H Urine Leukocyte NEGATIVE Esterase Urine Microscopic 22 H RBC Urine Microscopic 16 H WBC Urine Squamous MANY A Epithelial Cells Urine Mucus FEW A Urine Hemoglobin 3+ H Urine Glucose NEGATIVE Urine Total Protein 2+ H HPI/ROS Admit Date/Time Admit Date/Time Dec 23, 2018 at 05:47 Hx of Present Illness Chief complaint: Abdominal pain times 1 week This is a 48-year-old female with a history of systolic/diastolic CHF WITH EF 2 5% and history of gastritis with esophagitis presenting with complaints of upper abdominal pain for the past 1 week that radiates to her back. The pain is intermittent, 8 out of 10, worse with walking. She also has experienced some mild shortness of breath but denies any overt chest pain. . She was last hospitalized in October 2018, during which time she had an EGD and was diagnosed with gastritis. Her pain is not worsened or improved with eating. She has had associated nausea with nonbloody and nonbilious vomiting. No hematochezia or melena. No constipation. No fevers or chills. She complains of significant shortness of breath, worse with walking. No recent travel or surgeries. Due to her not having a primary care doctor secondary to insurance reasons she has not been able to take any of her medications aside from omeprazole for gastritis. She does not report any lower extremity edema or any wheezing. Allergies: NKDA Medications: Omeprazole ROS Const: As per HPI Eyes : No pain discharge or redness or change in visual acuity ENT: No pain, sore throat, congestion, congestion, dysphagia or discharge Respiratory: No shortness of breath, cough, sputum, wheezing, or pleuritic pain Cardiovascular: No chest pain, palpitation, PND, or edema GI : As per HPI Genitourinary: No dysuria, hematuria, flank pain , discharge or CVA tenderness Musculoskeletal: No joint pain, back pain, neck pain, restricted range of motion in neck or joints Skin: No rash, bruising or hives Neuro: No headache, dizziness, syncope, seizure, focal weakness Endocrine: No polyuria, polydipsia, temperature intolerance Psych: No hallucination, depression, anxiety or suicidal ideation PMH/Family/Social Past Medical History Mixed diastolic/systolic CHF with ef of 25%, gastritis pulmonary hypertension Medications Current Medications Ondansetron HCl (Zofran Inj) 4 mg BRIDGE ORDER PRN IV NAUSEA/VOMITING; Start 12/23/18 at 06:00; Stop 12/24/18 at 05:59 Acetaminophen (Tylenol Tab) 650 mg ER BRIDGE PRN PO .MILD PAIN 1-3 OR TEMP; Start 12/23/18 at 06:00; Stop 12/24/18 at 05:59 Sodium Chloride 1,000 ml @ 40 mls/hr Q24H IV ; Start 12/23/18 at 06:09 IV Flush (NS 3 ml) 3 ml PER PROTOCOL IV ; Start 12/23/18 at 06:30 Ondansetron HCl (Zofran Inj) 4 mg Q6H PRN IV NAUSEA/VOMITING; Start 12/23/18 at 06:30 Nitroglycerin (Nitroglycerin (Sl Tab) 0.4 Mg) 1 tab Q5M PRN SL .CHEST PAIN; Start 12/23/18 at 06:30 Acetaminophen (Tylenol Tab) 650 mg Q6H PRN PO .PAIN 1-3 OR TEMP; Start 12/23/18 at 06:30 Hydromorphone HCl (Dilaudid) 0.5 mg Q4H PRN IV .PAIN 7-10; Start 12/23/18 at 06:30 Docusate Sodium (Colace) 100 mg Q12H PRN PO .CONSTIPATION; Start 12/23/18 at 06:30 Bisacodyl (Dulcolax) 5 mg DAILY PRN PO .CONSTIPATION; Start 12/23/18 at 06:30 Pantoprazole (Protonix Iv) 40 mg DAILY@06 IV ; Start 12/24/18 at 06:00 Lisinopril (Zestril) 2.5 mg DAILY PO ; Start 12/23/18 at 09:00 Metoprolol Succinate (Toprol Xl) 25 mg DAILY PO ; Start 12/23/18 at 09:00 Piperacillin Sod/ Tazobactam Sod 100 ml @ 200 mls/hr Q6 IVPB ; Start 12/23/18 at 12:00 Furosemide (Lasix) 20 mg BID DIURETICS PO ; Start 12/23/18 at 07:00 Coded Allergies: No Known Drug Allergies (Verified Allergy, Unknown, 05/08/18) Past Surgical History Section x3, EGD Family History Significant Family History: no pertinent family hx Social History Alcohol Use: none Smoking Status: Never smoker Drug Use: none Exam/Review of Systems Vital Signs Vitals Vital Signs Date Temp Pulse Resp B/P (MAP) Pulse Ox O2 O2 Flow FiO2 Time Delivery Rate 12/23/18 97.6 70 18 100/77 100 Room Air 05:45 (85) Intake and Output 12/22/18 12/22/18 12/23/18 1515:00 23:00 07:00 IntakeIntake Total 600 ml BalanceBalance 600 ml Exam Exam General: Patient is currently lying in bed in mild distress from abdominal pain HEENT: Atraumatic, normocephalic. The pupils are equal, round and reactive. Extraocular motor are intact Neck: Supple with full range of motion. No rigidity or meningismus Chest: Nontender Lungs: Mild crackles at the bases bilaterally, nonlabored breathing Heart: Normal S1-S2, Regular rhythm and rate. No murmur, S3, or S4 Abdomen: Soft, tenderness to palpation over the right upper quadrant to the epigastric area, mild guarding. Normal bowel sounds. Extremities: Normal to inspection, no edema no cyanosis Neurologic: Normal mental status, speech normal, cranial nerves II through XII are intact, motor and sensory are intact, no focal weakness Additional Comments PROCEDURE: Single view chest. CLINICAL INDICATION: Abdominal pain TECHNIQUE: Single view of the chest was obtained COMPARISON: CHEST 10/24/2018; CHEST 10/23/2018 FINDINGS: The cardiac silhouette is enlarged. There is mild interstitial prominence without confluent air space consolidation or evidence of a pleural effusion. Regional bones are unremarkable IMPRESSION: Enlarged cardiac silhouette, interstitial prominence compatible with trace edema. RPTAT: [facility] eddie-Irwin Shah, Physician Date Time Electronically viewed and signed by Physician Miguel Angel on 12/23/2018 02:19 xB/ CC: GARRY VELAZQUEZ MD [id number] PROCEDURE: Ultrasound gallbladder CLINICAL INDICATION: abdominal pain TECHNIQUE: Salazar scale, color flow and Doppler ultrasound images of the abdomen. COMPARISON: None FINDINGS: Pancreas: The head and body of the pancreas are unremarkable. Tail is obscured by shadowing bowel gas. Vasculature: Aorta and inferior vena cava are normal in caliber. Liver: Liver demonstrates normal size and echotexture. No parenchymal lesions are identified. Normal directional flow toward the liver is demonstrated in the main portal vein. Gallbladder: Partially contracted with no stones identified. The gallbladder wall measures 7 mm thickness. There is no definite pericholecystic fluid. Biliary system: No significant dilatation of the intrahepatic or extrahepatic biliary system. Common bile duct measures 3.6 mm. Right Kidney: Measures 10.1 cm in length. No hydronephrosis, intrarenal calci fication or parenchymal lesion. No visible perinephric fluid. Additional findings: There is a small amount of free fluid posterior to the liver. IMPRESSION: 1. Diffusely thickened gallbladder wall, nonspecific, may represent edema, reactive inflammation or primary cholecystitis. 2. No visible gallstones. 3. Small amount of free fluid posterior to the liver in the right upper abdomen. RPTAT: [facility] x-Irwin Pablo, Physician Date Time Electronically viewed and signed by Physician Miguel Angel on 12/23/2018 02:22 xB/ CC: GARRY VELAZQUEZ MD [id number] EKG Normal sinus rhythm at 81 bpm Normal axis Normal intervals Anterior Q waves with poor R wave progression. Lateral T wave abnormalities with no ST elevations or depressions FLOR ARIAS Dec 23, 2018 06:57
[2018-12-23] MEDS: HYDROmorphONE 0.5 MG/0.5 ML SYG IV PRN ×2 (07:14→21:00)
[2018-12-23 08:52] VITALS: BP 101/73; PULSE 64; RESP 18
[2018-12-23] MEDS: METOPROLOL (XL) 25 MG TAB PO SCH (08:57)
[2018-12-23] MEDS: FUROSEMIDE 20 MG TAB PO SCH ×2 (08:57→18:00)
--- NOTE | 2018-12-23 09:15 | CONS ---
Assessment/Plan Assessment/Plan Assessment/Plan (Daily) Epigastric abdominal pain of uncertain etiology, most likely with gastritis. No gallstones seen on CT or ultrasound. There is some gallbladder wall thickening but this could be seen in CHF or with hepatic issues Based on her prior history and strong CHF history, I feel that biliary etiology is very unlikely. Will discuss with PMD, if still concerned, would recommend HIDA. However, I feel that the gallbladder is very unlikely source. Her findings on ultrasound and CAT scan can be seen with CHF. Consultation Date/Type/Reason Admit Date/Time Dec 23, 2018 at 05:47 Date/Time of Note DATE: 12/23/18 TIME: 09:14 Hx of Present Illness Patient is a 48-year-old female with CHF and ejection fraction of 25%,, who pre sents to the ER yesterday with a one-week history of epigastric abdominal pain radiating to her back. She states that she was seen about 2 months ago and treated for gastritis. However, there is no records of her hospitalization here. Her pain is 8 out of 10 at its worse with walking. She does also have some upper chest pain as well as shortness of breath. She is not taking any of her CHF medications. She does not have insurance is not had any refills on her medication. She denies fevers or chills. She was hospitalized in October 2018 and had endoscopy which showed gastritis. He has had some nausea and emesis as well. 14 point review of systems was performed. Pertinent negatives and positive per HPI. Past Medical History Medical History: congestive heart failure, GERD, hypertension Home Meds Active Scripts Lisinopril* (Lisinopril*) 2.5 Mg Tablet, 2.5 MG PO DAILY, #30 TAB Prov:PEEWEE WETZEL NP 10/27/18 Pantoprazole* (Protonix*) 40 Mg Tablet.dr, 40 MG PO BID, #60 TAB Prov:PEEWEE WETZEL NP 10/27/18 Metoprolol Succinate* (Toprol XL*) 25 Mg Tab.sr.24h, 25 MG PO DAILY, #30 TAB Prov:PEEWEE WETZEL NP 10/27/18 Furosemide (Lasix) 20 Mg Tab, 20 MG PO BID DIURETICS, #60 TAB Prov:PEEWEE WETZEL NP 10/27/18 Medications Current Medications Ondansetron HCl (Zofran Inj) 4 mg BRIDGE ORDER PRN IV NAUSEA/VOMITING; Start 12/23/18 at 06:00; Stop 12/24/18 at 05:59 Acetaminophen (Tylenol Tab) 650 mg ER BRIDGE PRN PO .MILD PAIN 1-3 OR TEMP; Start 12/23/18 at 06:00; Stop 12/24/18 at 05:59 Sodium Chloride 1,000 ml @ 40 mls/hr Q24H IV Last administered on 12/23/18at 07:08; Admin Dose 40 MLS/HR; Start 12/23/18 at 06:09 IV Flush (NS 3 ml) 3 ml PER PROTOCOL IV ; Start 12/23/18 at 06:30 Ondansetron HCl (Zofran Inj) 4 mg Q6H PRN IV NAUSEA/VOMITING; Start 12/23/18 at 06:30 Nitroglycerin (Nitroglycerin (Sl Tab) 0.4 Mg) 1 tab Q5M PRN SL .CHEST PAIN; Start 12/23/18 at 06:30 Acetaminophen (Tylenol Tab) 650 mg Q6H PRN PO .PAIN 1-3 OR TEMP; Start 12/23/18 at 06:30 Hydromorphone HCl (Dilaudid) 0.5 mg Q4H PRN IV .PAIN 7-10 Last administered on 12/23/18at 07:14; Admin Dose 0.5 MG; Start 12/23/18 at 06:30 Docusate Sodium (Colace) 100 mg Q12H PRN PO .CONSTIPATION; Start 12/23/18 at 06:30 Bisacodyl (Dulcolax) 5 mg DAILY PRN PO .CONSTIPATION; Start 12/23/18 at 06:30 Pantoprazole (Protonix Iv) 40 mg DAILY@06 IV ; Start 12/24/18 at 06:00 Lisinopril (Zestril) 2.5 mg DAILY PO ; Start 12/23/18 at 09:00 Metoprolol Succinate (Toprol Xl) 25 mg DAILY PO Last administered on 12/23/18at 08:57; Admin Dose 25 MG; Start 12/23/18 at 09:00 Piperacillin Sod/ Tazobactam Sod 100 ml @ 200 mls/hr Q6 IVPB ; Start 12/23/18 a t 12:00 Furosemide (Lasix) 20 mg BID DIURETICS PO Last administered on 12/23/18at 08:57; Admin Dose 20 MG; Start 12/23/18 at 07:00 Allergies: Coded Allergies: No Known Drug Allergies (Verified Allergy, Unknown, 05/08/18) Past Surgical History Past Surgical Hx: no surgical history Family History Significant Family History: no pertinent family hx Social History Alcohol Use: none Smoking Status: Never smoker Drug Use: none Exam/Review of Systems Exam Vitals Vital Signs Date Temp Pulse Resp B/P (MAP) Pulse Ox O2 O2 Flow FiO2 Time Delivery Rate 12/23/18 97.4 64 18 101/73 96 Room Air 08:52 (82) Intake and Output 12/22/18 12/22/18 12/23/18 1414:59 22:59 06:59 IntakeIntake Total 600 ml BalanceBalance 600 ml Constitutional: alert, oriented, well developed Psych: no complaints, nl mood/affect Head: normocephalic, atraumatic Eyes: nl conjunctiva ENMT: nl external ears & nose, nl lips & teeth Neck: supple, non-tender Respiratory: clear to auscultation Cardiovascular: regular rate and rhythm Gastrointestinal: soft, other (Some right upper quadrant and right lower quadrant tenderness, nondistended) Extremities: normal pulses 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, nl mental status, nl speech Skin: nl turgor Results Result Diagram: 12/23/1812912/23/18 013 Results 24hrs Laboratory Tests Test 12/23/18 01:11 12/23/18 01:13 12/23/18 01:30 12/23/18 02:30 Bedside Urine pH 6.0 (LAB) Bedside Urine 2+ H Protein (LAB) Bedside Urine Negative Glucose (UA) Bedside Urine Negative Ketones (LAB) Bedside Urine Blood 3+ H Bedside Urine Negative Nitrite (LAB) Bedside Urine Trace H Leukocyte Esterase (L POC Beta HCG, NEGATIVE Qualitative White Blood Count 5.7 Red Blood Count 4.58 Hemoglobin 12.8 Hematocrit 40.5 Mean Corpuscular 88.4 Volume Mean Corpuscular 27.9 L Hemoglobin Mean Corpuscular 31.6 L Hemoglobin Concent Red Cell 16.1 H Distribution Width Platelet Count 190 # Mean Platelet Volume 11.0 H Immature 0.400 Granulocytes % Neutrophils % 65.2 Lymphocytes % 22.9 Monocytes % 9.7 Eosinophils % 1.4 Basophils % 0.4 Nucleated Red Blood 0.0 Cells % Immature 0.020 Granulocytes # Neutrophils # 3.7 Lymphocytes # 1.3 Monocytes # 0.6 Eosinophils # 0.1 Basophils # 0.0 Nucleated Red Blood 0.0 Cells # Sodium Level 144 Potassium Level 3.9 Chloride Level 111 H Carbon Dioxide Level 24 Anion Gap 9 Blood Urea Nitrogen 20 Creatinine 0.69 Est Glomerular > 60 Filtrat Rate mL/min Glucose Level 98 Calcium Level 9.1 Total Bilirubin 0.4 Direct Bilirubin 0.00 Indirect Bilirubin 0.4 Aspartate Amino 36 Transf (AST/SGOT) Alanine 36 Aminotransferase (AL T/SGPT) Alkaline Phosphatase 80 Troponin I 0.024 B-Type Natriuretic 4040 H Peptide Total Protein 6.8 Albumin 3.6 Globulin 3.20 Albumin/Globulin 1.12 Ratio Lipase 141 Urine Color FER Urine Clarity CLOUDY A Urine pH 6.0 Urine Specific 1.027 [place] Urine Ketones NEGATIVE Urine Nitrite NEGATIVE Urine Bilirubin NEGATIVE Urine Urobilinogen 1+ H Urine Leukocyte NEGATIVE Esterase Urine Microscopic 22 H RBC Urine Microscopic 16 H WBC Urine Squamous MANY A Epithelial Cells Urine Mucus FEW A Urine Hemoglobin 3+ H Urine Glucose NEGATIVE Urine Total Protein 2+ H Test 12/23/18 07:56 Creatine Kinase 72 Creatine Kinase Pending Index Creatinine Kinase MB Pending (Mass) Troponin I Pending Imaging Imaging Patient: YAW GIRON : 1970 Age: 48 Sex: F MR #: [id number] DOS: 12/23/18 0126 Ordering MD: GARRY VELAZQUEZ MD Location: E/R Room/Bed: PROCEDURE: Ultrasound gallbladder CLINICAL INDICATION: abdominal pain TECHNIQUE: Salazar scale, color flow and Doppler ultrasound images of the abdomen. COMPARISON: None FINDINGS: Pancreas: The head and body of the pancreas are unremarkable. Tail is obscured by shadowing bowel gas. Vasculature: Aorta and inferior vena cava are normal in caliber. Liver: Liver demonstrates normal size and echotexture. No parenchymal lesions are identified. Normal directional flow toward the liver is demonstrated in the main portal vein. Gallbladder: Partially contracted with no stones identified. The gallbladder wall measures 7 mm thickness. There is no definite pericholecystic fluid. Biliary system: No significant dilatation of the intrahepatic or extrahepatic biliary system. Common bile duct measures 3.6 mm. Right Kidney: Measures 10.1 cm in length. No hydronephrosis, intrarenal calcification or parenchymal lesion. No visible perinephric fluid. Additional findings: There is a small amount of free fluid posterior to the liver. IMPRESSION: 1. Diffusely thickened gallbladder wall, nonspecific, may represent edema, reactive inflammation or primary cholecystitis. 2. No visible gallstones. 3. Small amount of free fluid posterior to the liver in the right upper abdomen. RPTAT: [facility] Physician Miguel Angel Date Time Electronically viewed and signed by Physician Miguel Angel on 12/23/2018 02:22 Medications Medication Current Medications Ondansetron HCl (Zofran Inj) 4 mg BRIDGE ORDER PRN IV NAUSEA/VOMITING; Start 12/23/18 at 06:00; Stop 12/24/18 at 05:59 Acetaminophen (Tylenol Tab) 650 mg ER BRIDGE PRN PO .MILD PAIN 1-3 OR TEMP; Start 12/23/18 at 06:00; Stop 12/24/18 at 05:59 Sodium Chloride 1,000 ml @ 40 mls/hr Q24H IV Last administered on 12/23/18at 07:08; Admin Dose 40 MLS/HR; Start 12/23/18 at 06:09 IV Flush (NS 3 ml) 3 ml PER PROTOCOL IV ; Start 12/23/18 at 06:30 Ondansetron HCl (Zofran Inj) 4 mg Q6H PRN IV NAUSEA/VOMITING; Start 12/23/18 at 06:30 Nitroglycerin (Nitroglycerin (Sl Tab) 0.4 Mg) 1 tab Q5M PRN SL .CHEST PAIN; Start 12/23/18 at 06:30 Acetaminophen (Tylenol Tab) 650 mg Q6H PRN PO .PAIN 1-3 OR TEMP; Start 12/23/18 at 06:30 Hydromorphone HCl (Dilaudid) 0.5 mg Q4H PRN IV .PAIN 7-10 Last administered on 12/23/18at 07:14; Admin Dose 0.5 MG; Start 12/23/18 at 06:30 Docusate Sodium (Colace) 100 mg Q12H PRN PO .CONSTIPATION; Start 12/23/18 at 06:30 Bisacodyl (Dulcolax) 5 mg DAILY PRN PO .CONSTIPATION; Start 12/23/18 at 06:30 Pantoprazole (Protonix Iv) 40 mg DAILY@06 IV ; Start 12/24/18 at 06:00 Lisinopril (Zestril) 2.5 mg DAILY PO ; Start 12/23/18 at 09:00 Metoprolol Succinate (Toprol Xl) 25 mg DAILY PO Last administered on 12/23/18at 08:57; Admin Dose 25 MG; Start 12/23/18 at 09:00 Piperacillin Sod/ Tazobactam Sod 100 ml @ 200 mls/hr Q6 IVPB ; Start 12/23/18 at 12:00 Furosemide (Lasix) 20 mg BID DIURETICS PO Last administered on 12/23/18at 08:57; Admin Dose 20 MG; Start 12/23/18 at 07:00 JAVY CAMPBELL MD Dec 23, 2018 09:15
--- NOTE | 2018-12-23 09:20 | RADRPT ---
Echocardiogram Report Patient Name: KELLI GIRONAPatient ID: [id number] : 1970 (48y 5m)Study Date: 12/23/2018 7:50:20 AM Gender: FAccession #: [id number] Tech: Teo Davis [facility] Location: [facility] [place] Ref.Physician: FLOR ARIAS Height(Cm): BSA: Weight(Kg): Quality: AdequateAccount #: Procedures: Echocardiographic Report: Transthoracic echocardiogram with complete 2D, M-Mode, and doppler examination. Indications: Chest Pain. Measurements: 2D/M Mode Doppler Measurement Value Normal Range Measurement Value Normal Range LVIDd 2D 6.0 [ 3.8 - 5.2 ] cm AV Peak Parth 1.0 [ 100.0 - 170.0 ] cm/sec LVIDs 2D 5.4 [ 2.2 - 3.5 ] cm AV Peak PG 4.0 [ 2.0 - 9.0 ] mmHg LVPWd 2D 1.0 [ 0.6 - 0.9 ] cm LVOT Peak Parth 0.5 [ 70.0 - 110.0 ] cm/sec IVSd 2D 0.7 [ 0.6 - 0.9 ] cm LVOT Peak PG 1.0 [ 2.0 - 6.0 ] mmHg IVS/LVPW 2D 0.7 ratio MV E Peak Parth 0.8 [ 60.0 - 130.0 ] cm/sec AoR Diam 2D 2.4 [ 2.3 - 3.1 ] cm MV A Peak Parth 0.2 [ 100.0 - 120.0 ] cm/sec LA/Ao 2D 2 ratio MV E/A 3.6 [ 0.8 - 1.5 ] ratio LA Dimen 2D 4.1 [ 2.7 - 3.8 ] cm MV Decel Time 176 [ 104 - 258 ] msec Lat E` Parth 0.1 [ 10.0 - 15.0 ] cm/sec Med E` Parth 0.0 cm/sec MV E/A 3.6 [ 0.8 - 1.5 ] ratio TR Peak Parth 2.7 [ 100.0 - 280.0 ] cm/sec TR Peak PG 28.0 mmHg RVSP 28.0 [ 10.0 - 36.0 ] mmHg Findings: Left Ventricle: Moderate enlargement of left ventricle cavity. Severe global left ventricular systolic dysfunction. Ejection fraction is visually estimated at 20 %. Tissue Doppler/Mitral Doppler indices are consistent with pseudonormalization with mildly elevated left atrial pressure (Stage II diastolic dysfunction). Right Ventricle: Normal right ventricular size. Moderate right ventricular hypokinesis. Left Atrium: There is mild enlargement of left atrium. Right Atrium: There is mild enlargement of right atrium. Atrial Septum: Normal atrial septum. Ventricular septum: Normal/intact ventricular septum. Mitral Valve: Normal appearance of the mitral valve. Moderate mitral valve regurgitation. Aortic Valve: Normal appearance of the aortic valve. No aortic regurgitation. Tricuspid Valve: Normal appearance of the tricuspid valve. Estimated peak PA systolic pressure 31 mmHg. There is moderate tricuspid regurgitation. Pulmonic Valve: Pulmonic valve not well visualized. No evidence of pulmonic regurgitation. Pericardium: Normal pericardium with no significant pericardial effusion. Aorta: Normal aortic root. IVC: Normal size and normal respiratory collapse consistent with normal right atrial pressure. Pulmonary Artery: Not well visualized. Conclusions: Dilated left ventricle with severely reduced systolic function and global hypokinesis. Pseudonormal diastolic function. Biatrial enlargement. Moderate mitral regurgitation. Moderate tricuspid regurgitation with at least mild pulmonary hypertension. Hypokinetic right ventricle. Electronically Signed By: Nicki Becker 2018-12-23 09:19:46 PDT
[2018-12-23] MEDS: ONDANSETRON 4 MG INJ IV PRN (11:12)
[2018-12-23 11:22] VITALS: BP 92/67; PULSE 72
[2018-12-23] MEDS: LISINOPRIL 5 MG TAB PO SCH (11:35)
[2018-12-23] MEDS: PIPER-TAZO 3.375 GM IV (PMX) 100 ML IVPB SCH ×2 (12:08→18:16)
--- NOTE | 2018-12-23 12:54 | PN ---
Date/Time of Note Date/Time of Note DATE: 12/23/18 TIME: 12:38 Assessment/Plan VTE Prophylaxis Risk score (from Nsg)>0 risk: 2 SCD applied (from Nsg): Yes Pharmacological prophylaxis: NA/contraindicated Pharm contraindication: low risk/ambulating Lines/Catheters IV Catheter Type (from Nrsg): Peripheral IV Assessment/Plan Assessment/Plan 1. Diffuse abdominal pain with N/V - CT scan of A/P reviewed and concern for cholecystitis. Pending HIDA scan - General surgery on board and does not believe etiology of pain is GB related. Most likely sequela of CHF exacerbation. Will try feeding patient and await HIDA results - Will keep IVF and start clear diet. Will advance as tolerated. Continue IV antibiotics 2. Acute on chronic combined heart failure - Patient ran out of medications and has not been taking her lasix - BNP results noted in the 4K - ECHO results show EF 20%. Will continue on Lasix and monitor I/O and daily weights. when improving, will transition to PO diuretics - Will need to make sure patient gets her medications delivered in order to prev ent further noncompliance 3. Gastritis - PPI 4. Disposition - Awaiting HIDA scan tomorrow and continue treatment of CHF exacerbation. Result Diagram: 12/23/18 0130 12/23/18 0130 Results 24hrs Laboratory Tests Test 12/23/18 01:11 12/23/18 01:13 12/23/18 01:30 12/23/18 02:30 Bedside Urine pH 6.0 (LAB) Bedside Urine 2+ H Protein (LAB) Bedside Urine Negative Glucose (UA) Bedside Urine Negative Ketones (LAB) Bedside Urine Blood 3+ H Bedside Urine Negative Nitrite (LAB) Bedside Urine Trace H Leukocyte Esterase (L POC Beta HCG, NEGATIVE Qualitative White Blood Count 5.7 Red Blood Count 4.58 Hemoglobin 12.8 Hematocrit 40.5 Mean Corpuscular 88.4 Volume Mean Corpuscular 27.9 L Hemoglobin Mean Corpuscular 31.6 L Hemoglobin Concent Red Cell 16.1 H Distribution Width Platelet Count 190 # Mean Platelet Volume 11.0 H Immature 0.400 Granulocytes % Neutrophils % 65.2 Lymphocytes % 22.9 Monocytes % 9.7 Eosinophils % 1.4 Basophils % 0.4 Nucleated Red Blood 0.0 Cells % Immature 0.020 Granulocytes # Neutrophils # 3.7 Lymphocytes # 1.3 Monocytes # 0.6 Eosinophils # 0.1 Basophils # 0.0 Nucleated Red Blood 0.0 Cells # Sodium Level 144 Potassium Level 3.9 Chloride Level 111 H Carbon Dioxide Level 24 Anion Gap 9 Blood Urea Nitrogen 20 Creatinine 0.69 Est Glomerular > 60 Filtrat Rate mL/min Glucose Level 98 Calcium Level 9.1 Total Bilirubin 0.4 Direct Bilirubin 0.00 Indirect Bilirubin 0.4 Aspartate Amino 36 Transf (AST/SGOT) Alanine 36 Aminotransferase (AL T/SGPT) Alkaline Phosphatase 80 Troponin I 0.024 B-Type Natriuretic 4040 H Peptide Total Protein 6.8 Albumin 3.6 Globulin 3.20 Albumin/Globulin 1.12 Ratio Lipase 141 Urine Color FER Urine Clarity CLOUDY A Urine pH 6.0 Urine Specific 1.027 [place] Urine Ketones NEGATIVE Urine Nitrite NEGATIVE Urine Bilirubin NEGATIVE Urine Urobilinogen 1+ H Urine Leukocyte NEGATIVE Esterase Urine Microscopic 22 H RBC Urine Microscopic 16 H WBC Urine Squamous MANY A Epithelial Cells Urine Mucus FEW A Urine Hemoglobin 3+ H Urine Glucose NEGATIVE Urine Total Protein 2+ H Test 12/23/18 07:56 12/23/18 11:58 Creatine Kinase 72 66 Creatine Kinase 1.5 Pending Index Creatinine Kinase MB 1.10 Pending (Mass) Troponin I 0.020 < 0.012 Subjective 24 Hr Interval Summary Free Text/Dictation Patient experiencing nausea with vomiting after attempt to eat. Scheduled for HIDA tomorrow. Complains of diffuse abdominal discomfort. Exam/Review of Systems Exam Vitals Vital Signs Date Temp Pulse Resp B/P (MAP) Pulse Ox O2 O2 Flow FiO2 Time Delivery Rate 12/23/18 72 92/67 (75) 11:22 12/23/18 97.4 18 96 Room Air 08:52 Intake and Output 12/22/18 12/22/18 12/23/18 1414:59 22:59 06:59 IntakeIntake Total 600 ml BalanceBalance 600 ml Exam General: distress secondary to nausea and pain in abdominal area Neck: Supple Chest: Nontender Lungs: diminished with crackles at bases Heart: Normal S1-S2, Regular rhythm and rate. No murmur, S3, or S4 Abdomen: Soft, tenderness to palpation diffusely but greater in RUQ and lower abdominal area, no rebound or guarding. Normal bowel sounds. Extremities: Normal to inspection, no edema no cyanosis Results Results 24hrs Laboratory Tests Test 12/23/18 01:11 12/23/18 01:13 12/23/18 01:30 12/23/18 02:30 Bedside Urine pH 6.0 (LAB) Bedside Urine 2+ H Protein (LAB) Bedside Urine Negative Glucose (UA) Bedside Urine Negative Ketones (LAB) Bedside Urine Blood 3+ H Bedside Urine Negative Nitrite (LAB) Bedside Urine Trace H Leukocyte Esterase (L POC Beta HCG, NEGATIVE Qualitative White Blood Count 5.7 Red Blood Count 4.58 Hemoglobin 12.8 Hematocrit 40.5 Mean Corpuscular 88.4 Volume Mean Corpuscular 27.9 L Hemoglobin Mean Corpuscular 31.6 L Hemoglobin Concent Red Cell 16.1 H Distribution Width Platelet Count 190 # Mean Platelet Volume 11.0 H Immature 0.400 Granulocytes % Neutrophils % 65.2 Lymphocytes % 22.9 Monocytes % 9.7 Eosinophils % 1.4 Basophils % 0.4 Nucleated Red Blood 0.0 Cells % Immature 0.020 Granulocytes # Neutrophils # 3.7 Lymphocytes # 1.3 Monocytes # 0.6 Eosinophils # 0.1 Basophils # 0.0 Nucleated Red Blood 0.0 Cells # Sodium Level 144 Potassium Level 3.9 Chloride Level 111 H Carbon Dioxide Level 24 Anion Gap 9 Blood Urea Nitrogen 20 Creatinine 0.69 Est Glomerular > 60 Filtrat Rate mL/min Glucose Level 98 Calcium Level 9.1 Total Bilirubin 0.4 Direct Bilirubin 0.00 Indirect Bilirubin 0.4 Aspartate Amino 36 Transf (AST/SGOT) Alanine 36 Aminotransferase (AL T/SGPT) Alkaline Phosphatase 80 Troponin I 0.024 B-Type Natriuretic 4040 H Peptide Total Protein 6.8 Albumin 3.6 Globulin 3.20 Albumin/Globulin 1.12 Ratio Lipase 141 Urine Color FER Urine Clarity CLOUDY A Urine pH 6.0 Urine Specific 1.027 [place] Urine Ketones NEGATIVE Urine Nitrite NEGATIVE Urine Bilirubin NEGATIVE Urine Urobilinogen 1+ H Urine Leukocyte NEGATIVE Esterase Urine Microscopic 22 H RBC Urine Microscopic 16 H WBC Urine Squamous MANY A Epithelial Cells Urine Mucus FEW A Urine Hemoglobin 3+ H Urine Glucose NEGATIVE Urine Total Protein 2+ H Test 12/23/18 07:56 12/23/18 11:58 Creatine Kinase 72 66 Creatine Kinase 1.5 Pending Index Creatinine Kinase MB 1.10 Pending (Mass) Troponin I 0.020 < 0.012 Medications Medication Current Medications Ondansetron HCl (Zofran Inj) 4 mg BRIDGE ORDER PRN IV NAUSEA/VOMITING; Start 12/23/18 at 06:00; Stop 12/24/18 at 05:59 Acetaminophen (Tylenol Tab) 650 mg ER BRIDGE PRN PO .MILD PAIN 1-3 OR TEMP; Start 12/23/18 at 06:00; Stop 12/24/18 at 05:59 Sodium Chloride 1,000 ml @ 40 mls/hr Q24H IV Last administered on 12/23/18at 07:08; Admin Dose 40 MLS/HR; Start 12/23/18 at 06:09 IV Flush (NS 3 ml) 3 ml PER PROTOCOL IV ; Start 12/23/18 at 06:30 Ondansetron HCl (Zofran Inj) 4 mg Q6H PRN IV NAUSEA/VOMITING Last administered on 12/23/18at 11:12; Admin Dose 4 MG; Start 12/23/18 at 06:30 Nitroglycerin (Nitroglycerin (Sl Tab) 0.4 Mg) 1 tab Q5M PRN SL .CHEST PAIN; Start 12/23/18 at 06:30 Acetaminophen (Tylenol Tab) 650 mg Q6H PRN PO .PAIN 1-3 OR TEMP; Start 12/23/18 at 06:30 Hydromorphone HCl (Dilaudid) 0.5 mg Q4H PRN IV .PAIN 7-10 Last administered on 12/23/18at 07:14; Admin Dose 0.5 MG; Start 12/23/18 at 06:30 Docusate Sodium (Colace) 100 mg Q12H PRN PO .CONSTIPATION; Start 12/23/18 at 06:30 Bisacodyl (Dulcolax) 5 mg DAILY PRN PO .CONSTIPATION; Start 12/23/18 at 06:30 Pantoprazole (Protonix Iv) 40 mg DAILY@06 IV ; Start 12/24/18 at 06:00 Lisinopril (Zestril) 2.5 mg DAILY PO ; Start 12/23/18 at 09:00 Metoprolol Succinate (Toprol Xl) 25 mg DAILY PO Last administered on 12/23/18at 08:57; Admin Dose 25 MG; Start 12/23/18 at 09:00 Piperacillin Sod/ Tazobactam Sod 100 ml @ 200 mls/hr Q6 IVPB Last administered on 12/23/18at 12:08; Admin Dose 200 MLS/HR; Start 12/23/18 at 12:00 Furosemide (Lasix) 20 mg BID DIURETICS PO Last administered on 12/23/18at 08:57; Admin Dose 20 MG; Start 12/23/18 at 07:00 CARMEN OZUNA MD Dec 23, 2018 12:54
[2018-12-23] MEDS: DEXTROSE 5%-0.45% NACL 1,000 ML IV SCH (13:05)
[2018-12-23 14:54] VITALS: BP 104/72; PULSE 60; RESP 18
[2018-12-23 18:19] VITALS: BP 90/67; PULSE 64
[2018-12-23 21:12] VITALS: BP 97/63; PULSE 71; RESP 18
[2018-12-24] MEDS: PIPER-TAZO 3.375 GM IV (PMX) 100 ML IVPB SCH ×3 (00:13→12:11)
[2018-12-24 02:00] VITALS: BP 95/68; PULSE 62; RESP 18
[2018-12-24] MEDS: FUROSEMIDE 20 MG TAB PO SCH ×2 (06:00→17:40)
[2018-12-24] MEDS ORDERED: PANTOPRAZOLE 40 MG INJ IV SCH (06:00)
[2018-12-24 07:11] VITALS: BP 92/63; PULSE 63; RESP 18
[2018-12-24] MEDS: LISINOPRIL 5 MG TAB PO SCH (09:00)
[2018-12-24] MEDS: METOPROLOL (XL) 25 MG TAB PO SCH (09:00)
[2018-12-24] MEDS: DEXTROSE 5%-0.45% NACL 1,000 ML IV SCH (13:00)
--- NOTE | 2018-12-24 13:18 | PN ---
Date/Time of Note Date/Time of Note DATE: 12/24/18 TIME: 13:16 Assessment/Plan VTE Prophylaxis Risk score (from Ns)>0 risk: 2 SCD applied (from Ns): Yes SCD contraindicated: low risk/ambulating Pharmacological prophylaxis: LMWH Lines/Catheters IV C[facility]ter Type (from [facility]): Peripheral IV Urinary Cath still in place: No Assessment/Plan Hospital Course Assessment and plan 1. Abdominal pain unknown etiology. HIDA appears unremarkable. Stable discharge once tolerate diet 2. Chronic nonischemic cardia myopathy, stable restart medical care 3. Nonadherence restart medical care 4. Chronic gastritis status post EGD last year. But may need to empirically treat H. pylori 5. Fibroids 6. Valvular heart disease moderate MR TR 7. Secondary pulmonary hypertension? Subjective: Abdominal pain epigastric unknown etiology. No known aggravating or relieving factors except for aggravated with activity? No nausea vomiting fever. Objective: Vital signs stable Physical exam No pallor icterus JVD Regular no murmur rub gallop Clear Benign no flank ecchymosis No edema Result Diagram: 12/24/18 0615 12/24/18 0615 Results 24hrs Laboratory Tests Test 12/24/18 06:15 White Blood Count 4.9 Red Blood Count 4.43 Hemoglobin 12.5 Hematocrit 39.1 Mean Corpuscular Volume 88.3 Mean Corpuscular Hemoglobin 28.2 L Mean Corpuscular Hemoglobin Concent 32.0 Red Cell Distribution Width 15.9 H Platelet Count 171 Mean Platelet Volume 11.2 H Immature Granulocytes % 0.200 Neutrophils % 60.6 Lymphocytes % 26.1 Monocytes % 11.1 H Eosinophils % 1.6 Basophils % 0.4 Nucleated Red Blood Cells % 0.0 Immature Granulocytes # 0.010 Neutrophils # 3.0 Lymphocytes # 1.3 Monocytes # 0.5 Eosinophils # 0.1 Basophils # 0.0 Nucleated Red Blood Cells # 0.0 Sodium Level 141 Potassium Level 3.7 Chloride Level 105 Carbon Dioxide Level 28 Anion Gap 8 Blood Urea Nitrogen 13 Creatinine 0.95 Est Glomerular Filtrat Rate mL/min > 60 Glucose Level 101 Calcium Level 8.4 Magnesium Level 1.8 Total Bilirubin 0.8 Direct Bilirubin 0.00 Indirect Bilirubin 0.8 Aspartate Amino Transf (AST/SGOT) 25 Alanine Aminotransferase (ALT/SGPT) 36 Alkaline Phosphatase 54 Total Protein 5.8 #L Albumin 3.1 L Globulin 2.70 Albumin/Globulin Ratio 1.14 Exam/Review of Systems Exam Vitals Vital Signs Date Temp Pulse Resp B/P (MAP) Pulse Ox O2 O2 Flow FiO2 Time Delivery Rate 12/24/18 97.8 63 18 92/63 (73) 94 Room Air 07:11 Intake and Output 12/23/18 12/23/18 12/24/18 1515:00 23:00 07:00 IntakeIntake Total 300 ml 820 ml 350 ml OutputOutput Total 100 ml BalanceBalance 300 ml 720 ml 350 ml Results Results 24hrs Laboratory Tests Test 12/24/18 06:15 White Blood Count 4.9 Red Blood Count 4.43 Hemoglobin 12.5 Hematocrit 39.1 Mean Corpuscular Volume 88.3 Mean Corpuscular Hemoglobin 28.2 L Mean Corpuscular Hemoglobin Concent 32.0 Red Cell Distribution Width 15.9 H Platelet Count 171 Mean Platelet Volume 11.2 H Immature Granulocytes % 0.200 Neutrophils % 60.6 Lymphocytes % 26.1 Monocytes % 11.1 H Eosinophils % 1.6 Basophils % 0.4 Nucleated Red Blood Cells % 0.0 Immature Granulocytes # 0.010 Neutrophils # 3.0 Lymphocytes # 1.3 Monocytes # 0.5 Eosinophils # 0.1 Basophils # 0.0 Nucleated Red Blood Cells # 0.0 Sodium Level 141 Potassium Level 3.7 Chloride Level 105 Carbon Dioxide Level 28 Anion Gap 8 Blood Urea Nitrogen 13 Creatinine 0.95 Est Glomerular Filtrat Rate mL/min > 60 Glucose Level 101 Calcium Level 8.4 Magnesium Level 1.8 Total Bilirubin 0.8 Direct Bilirubin 0.00 Indirect Bilirubin 0.8 Aspartate Amino Transf (AST/SGOT) 25 Alanine Aminotransferase (ALT/SGPT) 36 Alkaline Phosphatase 54 Total Protein 5.8 #L Albumin 3.1 L Globulin 2.70 Albumin/Globulin Ratio 1.14 Medications Medication Current Medications IV Flush (NS 3 ml) 3 ml PER PROTOCOL IV ; Start 12/23/18 at 06:30 Ondansetron HCl (Zofran Inj) 4 mg Q6H PRN IV NAUSEA/VOMITING Last administered on 12/23/18at 11:12; Admin Dose 4 MG; Start 12/23/18 at 06:30 Nitroglycerin (Nitroglycerin (Sl Tab) 0.4 Mg) 1 tab Q5M PRN SL .CHEST PAIN; Start 12/23/18 at 06:30 Acetaminophen (Tylenol Tab) 650 mg Q6H PRN PO .PAIN 1-3 OR TEMP; Start 12/23/18 at 06:30 Hydromorphone HCl (Dilaudid) 0.5 mg Q4H PRN IV .PAIN 7-10 Last administered on 12/23/18at 21:00; Admin Dose 0.5 MG; Start 12/23/18 at 06:30 Docusate Sodium (Colace) 100 mg Q12H PRN PO .CONSTIPATION; Start 12/23/18 at 06:30 Bisacodyl (Dulcolax) 5 mg DAILY PRN PO .CONSTIPATION; Start 12/23/18 at 06:30 Pantoprazole (Protonix Iv) 40 mg DAILY@06 IV Last administered on 12/24/18at 07:05; Admin Dose 40 MG; Start 12/24/18 at 06:00 Lisinopril (Zestril) 2.5 mg DAILY PO ; Start 12/23/18 at 09:00 Metoprolol Succinate (Toprol Xl) 25 mg DAILY PO Last administered on 12/23/18at 08:57; Admin Dose 25 MG; Start 12/23/18 at 09:00 Piperacillin Sod/ Tazobactam Sod 100 ml @ 200 mls/hr Q6 IVPB Last administered on 12/24/18at 12:11; Admin Dose 200 MLS/HR; Start 12/23/18 at 12:00 Furosemide (Lasix) 20 mg BID DIURETICS PO Last administered on 12/23/18at 08:57; Admin Dose 20 MG; Start 12/23/18 at 07:00 Dextrose/Sodium Chloride 1,000 ml @ 40 mls/hr Q24H IV Last administered on 12/23/18 13:05; Admin Dose 40 MLS/HR; Start 12/23/18 at 13:00 NOEL WAGNER MD Dec 24, 2018 13:18
[2018-12-24 14:00] VITALS: BP 97/68; PULSE 65; RESP 18
[2018-12-24 20:00] VITALS: BP 94/63; PULSE 73; RESP 18
[2018-12-24] MEDS: LACTOBACILLUS RHAMNOSUS CAP PO SCH (21:05)
[2018-12-25 02:00] VITALS: BP 93/67; PULSE 79; RESP 19
[2018-12-25] MEDS: FUROSEMIDE 20 MG TAB PO SCH ×2 (06:00→17:45)
[2018-12-25] MEDS: PANTOPRAZOLE (EC) 40 MG TAB PO SCH (06:18)
[2018-12-25 07:21] VITALS: BP 97/68; PULSE 74; RESP 16
[2018-12-25] MEDS: METOPROLOL (XL) 25 MG TAB PO SCH (08:11)
[2018-12-25] MEDS: LISINOPRIL 5 MG TAB PO SCH (08:12)
[2018-12-25] MEDS: LACTOBACILLUS RHAMNOSUS CAP PO SCH ×2 (08:13→20:20)
[2018-12-25 14:26] VITALS: BP_SYST 98; PULSE 77; RESP 16
--- NOTE | 2018-12-25 14:39 | PDOCDIS ---
Discharge Instructions CONDITION [id number] Patient Condition: [id number] Stable HOME CARE INSTRUCTIONS: [id number] Diet Instructions: [id number] Low Fat /Cholesterol ACTIVITY: [id number] Activity Restrictions: [id number] Slowly Increase Activity Do not Drive FOLLOW UP/APPOINTMENTS Follow-up Plan appt primary & Cardio 1wk gi referral placed 2wks NOEL WAGNER MD Dec 25, 2018 14:39
[2018-12-25] MEDS ORDERED: LAS20 PO (14:41)
[2018-12-25] MEDS ORDERED: THIA100T56 PO (14:41)
[2018-12-25] MEDS ORDERED: ACET325T33 PO (14:41)
[2018-12-25] MEDS ORDERED: LACT1CAP28 PO (14:41)
[2018-12-25] MEDS ORDERED: METO-335 PO (14:41)
[2018-12-25] MEDS ORDERED: LISI2.5T59 PO (14:41)
[2018-12-25] MEDS: HYDROmorphONE 0.5 MG/0.5 ML SYG IV PRN (15:25)
--- NOTE | 2018-12-25 15:34 | DS ---
Date/Time of Note Date/Time of Note DATE: 12/25/18 TIME: 15:26 Discharge Summary Admission/Discharge Info Admit Date/Time Dec 24, 2018 at 13:18 Discharge Date/Time Patient Condition: Stable Consults [facility] Procedures Abdominal ultrasound IMPRESSION: 1. Diffusely thickened gallbladder wall, nonspecific, may represent edema, reactive inflammation or primary cholecystitis. 2. No visible gallstones. 3. Small amount of free fluid posterior to the liver in the right upper abdomen. CAT scan abdomen pelvis with contrast IMPRESSION: 1. Mild stranding adjacent to the head of the pancreas favored to represent acute pancreatitis, recommend correlation with serum lipase. No organized collections or evidence of an abscess. Given proximity to the duodenum, differential considerations also include duodenitis and peptic ulcer disease. 2. Trace pericholecystic fluid and slightly thickened appearance of the gallbladder wall, question reactive inflammation versus primary cholecystitis. 3. Small bilateral pleural effusions and mild interstitial edema in the lung bases. 4. Uterine fibroids. 5. Trace pelvic free fluid. HIDA scan IMPRESSION: No scintigraphic evidence to suggest the presence of common bile or cystic ducts obstruction. 2D echo Conclusions: Dilated left ventricle with severely reduced systolic function and global hypokinesis. Pseudonormal diastolic function. Biatrial enlargement. Moderate mitral regurgitation. Moderate tricuspid regurgitation with at least mild pulmonary hypertension. Hypokinetic right ventricle. Hx of Present Illness 48-year-old female admitted from home with abdominal pain distention. Hospital Course Hospitalist Coverage/hospital course Initial concern was issues related to the GI tract. LFTs normal. Ultrasound and imaging was initially concerning for cholecystitis. Surgery was consulted. Normal LFTs and a normal HIDA, therefore the patient was deemed not a candidate for gallbladder surgery. Potentially has underlying chronic cholecystitis but not active at this time. Patient is tolerating diet/diet challenged and is stable and fit for discharge to follow-up with primary. GI referral placed. She is asked to cut back on fatty greasy foods. An EGD last year was negative for H. pylori however could be retested again as an outpatient More so, due to nonadherence to medical therapy, patient potentially has decompensated nonischemic cardiomyopathy. Patient was restarted on beta-vipul ROSALIND inhibitor and diuretics. Fluid retention could cause similar issues/symptoms, therefore it is advisable to restart medical care for her cardiomyopathy and see how she does as an outpatient. She is instructed to see cardiology as an outpatient. Assessment and plan 1. Abdominal pain ukn etiology. Possibly due to fluid overload HIDA unremarkable. Stable discharge. 2. Chronic nonischemic cardiomyopathy, stable restarted medical care 3. Nonadherence restart medical care 4. Chronic gastritis status post EGD last year. But may need to empirically treat H. pylori 5. Fibroids 6. Valvular heart disease moderate MR TR 7. Secondary pulmonary hypertension? Subjective: 12/24 abdominal pain epigastric unknown etiology. No known aggravating or relieving factors except for aggravated with activity? No nausea vomiting fever. : No events Objective: Vital signs stable Physical exam No pallor icterus JVD Regular no murmur rub gallop Clear Benign no flank ecchymosis No edema Home Meds Active Scripts Thiamine* (Vitamin B-1*) 100 Mg Tablet, 100 MG PO DAILY for 30 Days, TAB Prov:NOEL WAGNER MD 12/25/18 Lactobacillus Rhamnosus GG (Culturelle) 1 Each Capsule, 1 CAP PO BID for 10 Days, #20 CAP Prov:NOEL WAGNER MD 12/25/18 Acetaminophen* (Tylenol*) 325 Mg Tablet, 650 MG PO Q6H PRN for .PAIN 1-3 OR TEMP for 10 Days, TAB Prov:NOEL WAGNER MD 12/25/18 Lisinopril* (Lisinopril*) 2.5 Mg Tablet, 2.5 MG PO DAILY for 10 Days, #15 TAB Prov:NOEL WAGNER MD 12/25/18 Metoprolol Succinate* (Toprol XL*) 25 Mg Tab.sr.24h, 25 MG PO DAILY for 10 Days, #15 TAB Prov:NOEL WAGNER MD 12/25/18 Furosemide (Lasix) 20 Mg Tab, 20 MG PO BID DIURETICS for 10 Days, #20 TAB Prov:NOEL WAGNER MD 12/25/18 Discontinued Scripts Pantoprazole* (Protonix*) 40 Mg Tablet.dr, 40 MG PO BID, #60 TAB Prov:PEEWEE WETZEL BIOCHEMISTRY TECHNICIAN 10/27/18 Follow-up Plan appt primary & Cardio 1wk gi referral placed 2wks Primary Care Provider Care Physician No Primary Time spent on discharge: > 30 minutes Pending Labs Laboratory Tests Test 12/25/18 07:13 White Blood Count 5.2 10^3/ul (4.8-10.8) Red Blood Count 4.63 10^6/ul (4.20-5.40) Hemoglobin 12.9 g/dl (12.0-16.0) Hematocrit 40.8 % (37.0-47.0) Mean Corpuscular Volume 88.1 fl (82.0-101.0) Mean Corpuscular Hemoglobin 27.9 pg (29.0-33.0) Mean Corpuscular Hemoglobin Concent 31.6 g/dl (32.0-37.0) Red Cell Distribution Width 15.9 % (11.5-14.5) Platelet Count 185 10^3/UL (140-415) Mean Platelet Volume 11.8 fl (7.4-10.4) Immature Granulocytes % 0.200 % (0.001-0.429) Neutrophils % 66.2 % (39.0-77.0) Lymphocytes % 20.7 % (15.0-51.0) Monocytes % 10.9 % (0.0-11.0) Eosinophils % 1.4 % (0.0-7.0) Basophils % 0.6 % (0.0-2.0) Nucleated Red Blood Cells % 0.0 /100WBC (0.0-0.0) Immature Granulocytes # 0.010 10^3/ul (0.0-0.031) Neutrophils # 3.4 10^3/ul (1.6-7.5) Lymphocytes # 1.1 10^3/ul (0.8-2.9) Monocytes # 0.6 10^3/ul (0.3-0.9) Eosinophils # 0.1 10^3/ul (0.0-0.5) Basophils # 0.0 10^3/ul (0.0-0.1) Nucleated Red Blood Cells # 0.0 10^3/ul (0.0-0.0) Prothrombin Time 15.2 Sec (11.9-14.9) Prothrombin Time Ratio 1.2 INR International Normalized Ratio 1.19 Sodium Level 141 mmol/L (135-144) Potassium Level 4.7 mmol/L (3.5-5.1) Chloride Level 105 mmol/L (97-110) Carbon Dioxide Level 29 mmol/L (21-31) Anion Gap 7 (5-13) Blood Urea Nitrogen 13 mg/dl (7-20) Creatinine 0.85 mg/dl (0.44-1.00) Est Glomerular Filtrat Rate mL/min > 60 mL/min (>60) Glucose Level 92 mg/dl (70-220) Calcium Level 9.1 mg/dl (8.4-10.2) Total Bilirubin 0.6 mg/dl (0.2-1.3) Direct Bilirubin 0.00 mg/dl (0.00-0.20) Indirect Bilirubin 0.6 mg/dl (0-1.1) Aspartate Amino Transf (AST/SGOT) 30 IU/L (15-46) Alanine Aminotransferase (ALT/SGPT) 38 IU/L (13-69) Alkaline Phosphatase 68 IU/L (42-121) Total Protein 6.3 g/dl (6.1-8.1) Albumin 3.3 g/dl (3.3-4.9) Globulin 3.00 g/dl (1.3-3.2) Albumin/Globulin Ratio 1.10 NOEL WAGNER MD Dec 25, 2018 15:34
[2018-12-25] MEDS ORDERED: HYDROmorphONE 0.5 MG/0.5 ML SYG IV PRN (16:30)
[2018-12-25] MEDS: ONDANSETRON 4 MG INJ IV PRN (18:40)
[2018-12-25 20:00] VITALS: BP_SYST 129; BP_SYST 94; BP_DIAS 60; BP_DIAS 71; PULSE 86; RESP 19
[2018-12-25] MEDS: KETOROLAC 30 MG INJ IV PRN (20:24)
[2018-12-25] MEDS ORDERED: ACETAMINOPHEN 325 MG TAB PO PRN (22:30)
[2018-12-26 01:50] VITALS: BP 90/63; PULSE 60; RESP 18
[2018-12-26] MEDS: FUROSEMIDE 20 MG TAB PO SCH ×2 (05:13→05:27)
[2018-12-26] MEDS: PANTOPRAZOLE (EC) 40 MG TAB PO SCH (05:16)
[2018-12-26 08:00] VITALS: BP 94/70; PULSE 72; RESP 18
[2018-12-26] MEDS: METOPROLOL (XL) 25 MG TAB PO SCH (08:54)
[2018-12-26] MEDS: LACTOBACILLUS RHAMNOSUS CAP PO SCH ×2 (08:54→21:16)
[2018-12-26] MEDS: LISINOPRIL 5 MG TAB PO SCH (08:55)
[2018-12-26 14:00] VITALS: BP 99/63; PULSE 64; RESP 18
[2018-12-26] MEDS: KETOROLAC 30 MG INJ IV PRN (15:21)
[2018-12-26] MEDS ORDERED: LIDOCAINE/MYLANTA 40 ML BTL PO ONE (16:30)
[2018-12-26 20:13] VITALS: BP 94/66; PULSE 94; RESP 19
[2018-12-27 02:00] VITALS: BP 108/75; PULSE 75; RESP 18
[2018-12-27] MEDS: PANTOPRAZOLE (EC) 40 MG TAB PO SCH ×2 (05:32→20:28)
[2018-12-27 08:00] VITALS: BP 95/69; PULSE 74; RESP 16
[2018-12-27] MEDS: METOPROLOL (XL) 25 MG TAB PO SCH (09:00)
[2018-12-27] MEDS: LISINOPRIL 5 MG TAB PO SCH (09:00)
[2018-12-27] MEDS ORDERED: FUROSEMIDE 20 MG TAB PO SCH (09:00)
[2018-12-27] MEDS: LACTOBACILLUS RHAMNOSUS CAP PO SCH ×2 (09:20→20:28)
--- NOTE | 2018-12-27 12:37 | CONS ---
Assessment/Plan Assessment/Plan Hospital Course (Demo Recall) Summary Assessment and Plan: Assessment: Epigastric/RUQ pain EGD 10/26/2018 Bilateral inlet patches, Mild distal esophagitis, Moderate gastritis, Moderate duodenitis Biopsies obtained negative for H. pylori, intestinal metaplasia, fungal organisms, malignancy or dysplasia Acute on chronic systolic heart failure. Nonischemic cardiomyopathy- EF 25% Hoarseness- 2/2 pyrosis? Diffusely thickened gallbladder wall, nonspecific, may represent edema, reactive inflammation or primary cholecystitis. -No visible gallstones Mild stranding adjacent to the head of the pancreas favored to represent acute pancreatitis- lipase WNL -Given proximity to the duodenum, differential considerations also include duodenitis and peptic ulcer disease. -Pt with known hx of duodenitis. Plan: Maximize PPI therapy- increase to BID Add Carafate QID and Levsin PRN Low fat/low NA/GERD diet Discussed Reflux precautions Given recent EGD 10/26, no plan for repeat EGD Stool for H.pylori pending Patient seen in collaboration with Dr. Arriola/Kathleen CC: HARRY ARRIOLA MD ; Consultation Date/Type/Reason Admit Date/Time Dec 23, 2018 at 05:47 Date of Consultation: Dec 27, 2018 Type of Consult GI Reason for Consultation RUQ/Epigastric pain Date/Time of Note DATE: 12/27/18 TIME: 12:35 Hx of Present Illness This is a 48-year-old female with past medical history of congestive heart failure with ejection fraction 25%, gastritis/duodenitis/esophagitis who presented to the hospital with complaints of upper abdominal pain x1 week radiating to back and right shoulder shortness of breath. Work-up this hospitalization included a HIDA scan which showed no evidence to suggest presence of common bile or cystic duct obstruction, CT abdomen pelvis with IV contrast showing mild stranding adjacent to the head of the pancreas favored to represent acute pancreatitis. No organized collections of evidence of an absces s, given proximity to the duodenum differential considerations also include duodenitis and PUD, trace pericholecystic fluid and slightly thickened appearance of the gallbladder wall, question reactive inflammation versus primary cholecystitis, uterine fibrosis, trace pelvic free fluid. Additionally a gallbladder ultrasound was obtained showing diffusely thickened gallbladder wall nonspecific may represent edema, reactive inflammation or primary cholecystitis, no visible gallstones, small amount of free fluid posterior to the liver in the right upper quadrant abdomen. Chest x-ray showed enlarged cardiac silhouette, interstitial prominence compatible trace edema and an abdominal x-ray was obtained showing unremarkable gas pattern without evidence of obstruction again noted is mildly enlarged appearing heart size, osteitis pubis. Throughout hospitalization LFTs have been normal as well as lipase. Cardiac enzymes have been checked and are within normal limits noted on admission BNP was elevated patient is currently on Lasix and she was evaluated by surgery but not deemed a candidate for cholecystectomy. Patient was started on a diet and seems to be stable for discharge however pain persisted and discharge was canceled GI has been consulted for further evaluation. At time of exam patient sitting up in chair he tolerating diet well she does have hoarseness while speaking patient complains of epigastric sternal pain as well as right upper quadrant pain worse with palpation. Currently on PPI p.o. daily. She denies overt signs of GI bleed current diarrhea or constipation however she did states she previously had diarrhea which has resolved. Review of Systems: A 12 system, review was conducted and is negative except as noted in the HPI or here. Past Medical History Medical History: congestive heart failure, GERD, hypertension Home Meds Active Scripts Thiamine* (Vitamin B-1*) 100 Mg Tablet, 100 MG PO DAILY for 30 Days, TAB Prov:NOEL WAGNER MD 12/25/18 Lactobacillus Rhamnosus GG (Culturelle) 1 Each Capsule, 1 CAP PO BID for 10 Days, #20 CAP Prov:NOEL WAGNER MD 12/25/18 Acetaminophen* (Tylenol*) 325 Mg Tablet, 650 MG PO Q6H PRN for .PAIN 1-3 OR TEMP for 10 Days, TAB Prov:NOEL WAGNER MD 12/25/18 Lisinopril* (Lisinopril*) 2.5 Mg Tablet, 2.5 MG PO DAILY for 10 Days, #15 TAB Prov:NOEL WAGNER MD 12/25/18 Metoprolol Succinate* (Toprol XL*) 25 Mg Tab.sr.24h, 25 MG PO DAILY for 10 Days, #15 TAB Prov:NOEL AWGNER MD 12/25/18 Furosemide (Lasix) 20 Mg Tab, 20 MG PO BID DIURETICS for 10 Days, #20 TAB Prov:NOEL WAGNER MD 12/25/18 Discontinued Scripts Pantoprazole* (Protonix*) 40 Mg Tablet., 40 MG PO BID, #60 TAB Prov:PEEWEE WETZEL ESTIMATOR BINDING 10/27/18 Medications Current Medications IV Flush (NS 3 ml) 3 ml PER PROTOCOL IV ; Start 12/23/18 at 06:30 Ondansetron HCl (Zofran Inj) 4 mg Q6H PRN IV NAUSEA/VOMITING Last administered on 12/25/18at 18:40; Admin Dose 4 MG; Start 12/23/18 at 06:30 Nitroglycerin (Nitroglycerin (Sl Tab) 0.4 Mg) 1 tab Q5M PRN SL .CHEST PAIN; Start 12/23/18 at 06:30 Acetaminophen (Tylenol Tab) 650 mg Q6H PRN PO .PAIN 1-3 OR TEMP; Start 12/23/18 at 06:30 Docusate Sodium (Colace) 100 mg Q12H PRN PO .CONSTIPATION; Start 12/23/18 at 06:30 Bisacodyl (Dulcolax) 5 mg DAILY PRN PO .CONSTIPATION; Start 12/23/18 at 06:30 Lisinopril (Zestril) 2.5 mg DAILY PO ; Start 12/23/18 at 09:00 Metoprolol Succinate (Toprol Xl) 25 mg DAILY PO Last administered on 12/23/18at 08:57; Admin Dose 25 MG; Start 12/23/18 at 09:00 Lactobacillus Acidophilus/ Rhamnosus (Culturelle) 1 cap BID PO Last administered on 12/27/18at 09:20; Admin Dose 1 CAP; Start 12/24/18 at 21:00 Hydromorphone HCl (Dilaudid) 0.5 mg Q8 PRN IV .PAIN 7-10 Last administered on 12/26/18at 11:24; Admin Dose 0.5 MG; Start 12/25/18 at 16:30 Ketorolac Tromethamine (Toradol) 30 mg Q6H PRN IV PAIN LEVEL 1-3 Last administered on 12/26/18at 15:21; Admin Dose 30 MG; Start 12/25/18 at 16:30; Stop 12/28/18 at 16:29 Acetaminophen (Tylenol Tab) 650 mg Q6H PRN PO MILD PAIN(1-3)OR ELEVATED TEMP; Start 12/25/18 at 22:30 Furosemide (Lasix) 20 mg DAILY PO ; Start 12/29/18 at 09:00 Pantoprazole (Protonix Tab) 40 mg BID PO ; Start 12/27/18 at 21:00 Sucralfate (Carafate Susp) 1 gm QID PO ; Start 12/27/18 at 13:00 Allergies: Coded Allergies: No Known Drug Allergies (Verified Allergy, Unknown, 05/08/18) Past Surgical History Past Surgical Hx: no surgical history Social History Alcohol Use: none Smoking Status: Never smoker Drug Use: none Exam/Review of Systems Exam Vitals Vital Signs Date Temp Pulse Resp B/P (MAP) Pulse Ox O2 O2 Flow FiO2 Time Delivery Rate 12/27/18 98.6 74 16 95/69 (78) 98 08:00 12/25/18 Room Air 14:26 Intake and Output 12/26/18 12/26/18 12/27/18 1515:00 23:00 07:00 IntakeIntake Total 400 ml 680 ml BalanceBalance 400 ml 680 ml Exam PHYSICAL EXAMINATION: GENERAL: Well developed, well nourished, alert & oriented x 3, in no acute distress SKIN: No lesions HEAD: Normocephalic, atraumatic, no tenderness. EYES: Pupils equal reactive to light and accommodation, full extraocular movements, sclera clear, non-icteric, no discharge. EARS/NOSE AND THROAT: Ears normal, nose normal, oropharynx normal. Hoarseness when speaking NECK: Supple, no masses CHEST: Inspection within normal limits. CARDIOVASCULAR: Heart: Regular rate and rhythm RESPIRATORY: Lungs clear to auscultation n GASTROINTESTINAL AND LIVER: Abdomen: Soft, RUQ/Epigastric pain, non-distended, no hernias, no masses, no organomegaly, no ascites, normoactive bowel sounds. Rectal: Deferred. GENITOURINARY: Female genitalia within normal limits. Results Result Diagram: 12/27/1852012/27/18 0521 Results 24hrs Laboratory Tests Test 12/27/18 05:21 White Blood Count 6.1 Red Blood Count 4.54 Hemoglobin 12.8 Hematocrit 40.0 Mean Corpuscular Volume 88.1 Mean Corpuscular Hemoglobin 28.2 L Mean Corpuscular Hemoglobin Concent 32.0 Red Cell Distribution Width 15.4 H Platelet Count 189 Mean Platelet Volume 11.6 H Immature Granulocytes % 0.300 Neutrophils % 70.6 Lymphocytes % 20.4 Monocytes % 7.4 Eosinophils % 1.0 Basophils % 0.3 Nucleated Red Blood Cells % 0.0 Immature Granulocytes # 0.020 Neutrophils # 4.3 Lymphocytes # 1.2 Monocytes # 0.5 Eosinophils # 0.1 Basophils # 0.0 Nucleated Red Blood Cells # 0.0 Sodium Level 138 Potassium Level 5.2 H Chloride Level 104 Carbon Dioxide Level 28 Anion Gap 6 Blood Urea Nitrogen 21 H Creatinine 0.80 Est Glomerular Filtrat Rate mL/min > 60 Glucose Level 98 Lactic Acid Level 1.1 Calcium Level 8.6 Total Bilirubin 0.6 Direct Bilirubin 0.00 Indirect Bilirubin 0.6 Aspartate Amino Transf (AST/SGOT) 32 Alanine Aminotransferase (ALT/SGPT) 32 Alkaline Phosphatase 65 Troponin I 0.030 Total Protein 6.0 L Albumin 3.2 L Globulin 2.80 Albumin/Globulin Ratio 1.14 Lipase 113 Medications Medication Current Medications IV Flush (NS 3 ml) 3 ml PER PROTOCOL IV ; Start 12/23/18 at 06:30 Ondansetron HCl (Zofran Inj) 4 mg Q6H PRN IV NAUSEA/VOMITING Last administered on 12/25/18at 18:40; Admin Dose 4 MG; Start 12/23/18 at 06:30 Nitroglycerin (Nitroglycerin (Sl Tab) 0.4 Mg) 1 tab Q5M PRN SL .CHEST PAIN; Start 12/23/18 at 06:30 Acetaminophen (Tylenol Tab) 650 mg Q6H PRN PO .PAIN 1-3 OR TEMP; Start 12/23/18 at 06:30 Docusate Sodium (Colace) 100 mg Q12H PRN PO .CONSTIPATION; Start 12/23/18 at 06:30 Bisacodyl (Dulcolax) 5 mg DAILY PRN PO .CONSTIPATION; Start 12/23/18 at 06:30 Lisinopril (Zestril) 2.5 mg DAILY PO ; Start 12/23/18 at 09:00 Metoprolol Succinate (Toprol Xl) 25 mg DAILY PO Last administered on 12/23/18at 08:57; Admin Dose 25 MG; Start 12/23/18 at 09:00 Lactobacillus Acidophilus/ Rhamnosus (Culturelle) 1 cap BID PO Last administered on 12/27/18at 09:20; Admin Dose 1 CAP; Start 12/24/18 at 21:00 Hydromorphone HCl (Dilaudid) 0.5 mg Q8 PRN IV .PAIN 7-10 Last administered on 12/26/18at 11:24; Admin Dose 0.5 MG; Start 12/25/18 at 16:30 Ketorolac Tromethamine (Toradol) 30 mg Q6H PRN IV PAIN LEVEL 1-3 Last administered on 12/26/18at 15:21; Admin Dose 30 MG; Start 12/25/18 at 16:30; Stop 12/28/18 at 16:29 Acetaminophen (Tylenol Tab) 650 mg Q6H PRN PO MILD PAIN(1-3)OR ELEVATED TEMP; Start 12/25/18 at 22:30 Furosemide (Lasix) 20 mg DAILY PO ; Start 12/29/18 at 09:00 Pantoprazole (Protonix Tab) 40 mg BID PO ; Start 12/27/18 at 21:00 Sucralfate (Carafate Susp) 1 gm QID PO ; Start 12/27/18 at 13:00 ЮЛИЯ DORANTES Dec 27, 2018 12:37
[2018-12-27] MEDS ORDERED: HYOSCYAMINE 0.125 MG SUBL TAB SL PRN (13:00)
[2018-12-27 13:47] VITALS: BP 100/67; PULSE 72; RESP 18
[2018-12-27] MEDS: SUCRALFATE (100 MG/ML) 10ML CUP PO SCH ×3 (14:01→20:27)
--- NOTE | 2018-12-27 17:10 | PN ---
Date/Time of Note Date/Time of Note DATE: 12/27/18 TIME: 17:08 Assessment/Plan VTE Prophylaxis Risk score (from Nsg)>0 risk: 2 SCD applied (from Nsg): Yes SCD contraindicated: low risk/ambulating Pharmacological prophylaxis: LMWH Lines/Catheters IV Catheter Type (from Nrsg): [place] Urinary Cath still in place: No Assessment/Plan Hospital Course Hospitalist Coverage/hospital course Initial concern was issues related to the GI tract. LFTs normal. Ultrasound and imaging was initially concerning for cholecystitis. Surgery was consulted. Normal LFTs and a normal HIDA, therefore the patient was deemed not a candidate for gallbladder surgery. Potentially has underlying chronic cholecystitis but not active at this time. Patient is tolerating diet/diet challenged and is stable and fit for discharge to follow-up with primary. GI referral placed. She is asked to cut back on fatty greasy foods. An EGD last year was negative for H. pylori however could be retested again as an outpatient More so, due to nonadherence to medical therapy, patient potentially has decompensated nonischemic cardiomyopathy. Patient was restarted on beta-vipul ROSALIND inhibitor and diuretics. Fluid retention could cause similar issues/symptoms, therefore it is advisable to restart medical care for her cardiomyopathy and see how she does as an outpatient. She is instructed to see cardiology as an outpatient. Assessment and plan 1. Abd pain ukn etio. fluid overload? HIDA unremarkable. Appreciate GI eval. Stable discharge if tolerating diet. 2. Chronic nonischemic cardiomyopathy, stable restarted medical care 3. Nonadherence restart medical care 4. Chr gastritis sp EGD last year. But may need to empirically treat H. pylori 5. Fibroids 6. Valvular heart disease moderate MR TR 7. Secondary pulmonary hypertension? S: 12/24 abdominal pain epigastric unknown etiology. No known aggravating or relie ving factors except for aggravated with activity? No nausea vomiting fever. : No events 12/26: ongoing abdominal pain discomfort 12/27: No events O: Vital signs stable Physical exam No pallor icterus JVD Regular no murmur rub gallop Clear Benign no flank ecchymosis No edema Result Diagram: 12/27/18 0521 12/27/18 0521 Results 24hrs Laboratory Tests Test 12/27/18 05:21 White Blood Count 6.1 Red Blood Count 4.54 Hemoglobin 12.8 Hematocrit 40.0 Mean Corpuscular Volume 88.1 Mean Corpuscular Hemoglobin 28.2 L Mean Corpuscular Hemoglobin Concent 32.0 Red Cell Distribution Width 15.4 H Platelet Count 189 Mean Platelet Volume 11.6 H Immature Granulocytes % 0.300 Neutrophils % 70.6 Lymphocytes % 20.4 Monocytes % 7.4 Eosinophils % 1.0 Basophils % 0.3 Nucleated Red Blood Cells % 0.0 Immature Granulocytes # 0.020 Neutrophils # 4.3 Lymphocytes # 1.2 Monocytes # 0.5 Eosinophils # 0.1 Basophils # 0.0 Nucleated Red Blood Cells # 0.0 Sodium Level 138 Potassium Level 5.2 H Chloride Level 104 Carbon Dioxide Level 28 Anion Gap 6 Blood Urea Nitrogen 21 H Creatinine 0.80 Est Glomerular Filtrat Rate mL/min > 60 Glucose Level 98 Lactic Acid Level 1.1 Calcium Level 8.6 Total Bilirubin 0.6 Direct Bilirubin 0.00 Indirect Bilirubin 0.6 Aspartate Amino Transf (AST/SGOT) 32 Alanine Aminotransferase (ALT/SGPT) 32 Alkaline Phosphatase 65 Troponin I 0.030 Total Protein 6.0 L Albumin 3.2 L Globulin 2.80 Albumin/Globulin Ratio 1.14 Lipase 113 Exam/Review of Systems Exam Vitals Vital Signs Date Temp Pulse Resp B/P (MAP) Pulse Ox O2 O2 Flow FiO2 Time Delivery Rate 12/27/18 98.0 72 18 100/67 95 Room Air 13:47 (78) Intake and Output 12/26/18 12/26/18 12/27/18 1515:00 23:00 07:00 IntakeIntake Total 400 ml 680 ml BalanceBalance 400 ml 680 ml Results Results 24hrs Laboratory Tests Test 12/27/18 05:21 White Blood Count 6.1 Red Blood Count 4.54 Hemoglobin 12.8 Hematocrit 40.0 Mean Corpuscular Volume 88.1 Mean Corpuscular Hemoglobin 28.2 L Mean Corpuscular Hemoglobin Concent 32.0 Red Cell Distribution Width 15.4 H Platelet Count 189 Mean Platelet Volume 11.6 H Immature Granulocytes % 0.300 Neutrophils % 70.6 Lymphocytes % 20.4 Monocytes % 7.4 Eosinophils % 1.0 Basophils % 0.3 Nucleated Red Blood Cells % 0.0 Immature Granulocytes # 0.020 Neutrophils # 4.3 Lymphocytes # 1.2 Monocytes # 0.5 Eosinophils # 0.1 Basophils # 0.0 Nucleated Red Blood Cells # 0.0 Sodium Level 138 Potassium Level 5.2 H Chloride Level 104 Carbon Dioxide Level 28 Anion Gap 6 Blood Urea Nitrogen 21 H Creatinine 0.80 Est Glomerular Filtrat Rate mL/min > 60 Glucose Level 98 Lactic Acid Level 1.1 Calcium Level 8.6 Total Bilirubin 0.6 Direct Bilirubin 0.00 Indirect Bilirubin 0.6 Aspartate Amino Transf (AST/SGOT) 32 Alanine Aminotransferase (ALT/SGPT) 32 Alkaline Phosphatase 65 Troponin I 0.030 Total Protein 6.0 L Albumin 3.2 L Globulin 2.80 Albumin/Globulin Ratio 1.14 Lipase 113 Medications Medication Current Medications IV Flush (NS 3 ml) 3 ml PER PROTOCOL IV ; Start 12/23/18 at 06:30 Ondansetron HCl (Zofran Inj) 4 mg Q6H PRN IV NAUSEA/VOMITING Last administered on 12/25/18at 18:40; Admin Dose 4 MG; Start 12/23/18 at 06:30 Nitroglycerin (Nitroglycerin (Sl Tab) 0.4 Mg) 1 tab Q5M PRN SL .CHEST PAIN; Start 12/23/18 at 06:30 Acetaminophen (Tylenol Tab) 650 mg Q6H PRN PO .PAIN 1-3 OR TEMP; Start 12/23/18 at 06:30 Docusate Sodium (Colace) 100 mg Q12H PRN PO .CONSTIPATION; Start 12/23/18 at 06:30 Bisacodyl (Dulcolax) 5 mg DAILY PRN PO .CONSTIPATION; Start 12/23/18 at 06:30 Lisinopril (Zestril) 2.5 mg DAILY PO ; Start 12/23/18 at 09:00 Metoprolol Succinate (Toprol Xl) 25 mg DAILY PO Last administered on 12/23/18at 08:57; Admin Dose 25 MG; Start 12/23/18 at 09:00 Lactobacillus Acidophilus/ Rhamnosus (Culturelle) 1 cap BID PO Last administered on 12/27/18at 09:20; Admin Dose 1 CAP; Start 12/24/18 at 21:00 Hydromorphone HCl (Dilaudid) 0.5 mg Q8 PRN IV .PAIN 7-10 Last administered on 12/26/18at 11:24; Admin Dose 0.5 MG; Start 12/25/18 at 16:30 Ketorolac Tromethamine (Toradol) 30 mg Q6H PRN IV PAIN LEVEL 1-3 Last administered on 12/26/18at 15:21; Admin Dose 30 MG; Start 12/25/18 at 16:30; Stop 12/28/18 at 16:29 Acetaminophen (Tylenol Tab) 650 mg Q6H PRN PO MILD PAIN(1-3)OR ELEVATED TEMP; Start 12/25/18 at 22:30 Furosemide (Lasix) 20 mg DAILY PO ; Start 12/29/18 at 09:00 Pantoprazole (Protonix Tab) 40 mg BID PO ; Start 12/27/18 at 21:00 Sucralfate (Carafate Susp) 1 gm QID PO Last administered on 12/27/18at 14:01; Admin Dose 1 GM; Start 12/27/18 at 13:00 Hyoscyamine (Levsin (Sl)) 0.125 mg Q4H PRN SL abd cramping; Start 12/27/18 at 13:00 NOEL WAGNER MD Dec 27, 2018 17:10
[2018-12-27 19:34] VITALS: BP 104/80; PULSE 77; RESP 20
[2018-12-28 01:55] VITALS: BP 100/71; PULSE 69; RESP 20
[2018-12-28 07:58] VITALS: BP 103/72; PULSE 75; RESP 18
[2018-12-28] MEDS: METOPROLOL (XL) 25 MG TAB PO SCH (08:52)
[2018-12-28] MEDS: SUCRALFATE (100 MG/ML) 10ML CUP PO SCH ×3 (08:52→16:38)
[2018-12-28] MEDS: LACTOBACILLUS RHAMNOSUS CAP PO SCH (08:52)
[2018-12-28] MEDS: PANTOPRAZOLE (EC) 40 MG TAB PO SCH (08:52)
[2018-12-28] MEDS: LISINOPRIL 5 MG TAB PO SCH (08:53)
[2018-12-28 14:00] VITALS: BP 104/68; PULSE 79; RESP 18
--- NOTE | 2018-12-28 15:00 | DS ---
Date/Time of Note Date/Time of Note DATE: 12/28/18 TIME: 14:54 Discharge Summary Admission/Discharge Info Admit Date/Time Dec 24, 2018 at 13:18 Discharge Date/Time Patient Condition: Stable Consults General Surgery; GI Dr Arriola Procedures HIDA scan IMPRESSION: No scintigraphic evidence to suggest the presence of common bile or cystic ducts obstruction. CAT scan abdomen pelvis IMPRESSION: 1. Mild stranding adjacent to the head of the pancreas favored to represent ac [place] pancreatitis, recommend correlation with serum lipase. No organized collections or evidence of an abscess. Given proximity to the duodenum, differential considerations also include duodenitis and peptic ulcer disease. 2. Trace pericholecystic fluid and slightly thickened appearance of the gallbladder wall, question reactive inflammation versus primary cholecystitis. 3. Small bilateral pleural effusions and mild interstitial edema in the lung bases. 4. Uterine fibroids. 5. Trace pelvic free fluid. Ultrasound abdomen IMPRESSION: 1. Diffusely thickened gallbladder wall, nonspecific, may represent edema, reactive inflammation or primary cholecystitis. 2. No visible gallstones. 3. Small amount of free fluid posterior to the liver in the right upper abdomen. KUB KUB IMPRESSION: 1. Unremarkable bowel gas pattern, without evidence for obstruction. 2. Mildly enlarged appearing heart size. 3. Osteitis pubis Hx of Present Illness 48-year-old female admitted from home with abdominal pain distention. Hospital Course Hospitalist Coverage/hospital course Initial concern was issues related to the GI tract. LFTs normal. Ultrasound and imaging was initially concerning for cholecystitis. Surgery was consulted. Normal LFTs and a normal HIDA, therefore the patient was deemed not a candidate for gallbladder surgery. Potentially has underlying chronic cholecystitis but not active at this time. Patient is tolerating diet/diet challenged and is stable and fit for discharge. to follow-up with primary; GI referral placed. She is asked to cut back on fatty greasy foods. An EGD last year was negative for H. pylori however could be retested again as an outpatient More so, due to nonadherence to medical therapy, patient potentially has decompensated nonischemic cardiomyopathy. Patient was restarted on beta-vipul ROSALIND inhibitor and diuretics. Fluid retention could cause similar issues/symptoms, therefore it is advisable to restart medical care for her cardi omyopathy and see how she does as an outpatient. She is instructed to see cardiology as an outpatient. As the pain continued, we consulted GI. Recommendations: to optimize care/ PPI, started Levsin as needed. Patient stable for for discharge home. Testing has been sent out for h pylori, but may not be accurate as the patient has been exposed to PPI prior. Assessment and plan 1. Abd pain ukn etio. fluid overload? HIDA unremarkable. Appreciate GI eval. Stable discharge. 2. Chronic nonischemic cardiomyopathy, stable restarted medical care 3. Nonadherence restart medical care 4. Chr gastritis sp EGD last year. But may need to empirically treat H. pylori 5. Fibroids 6. Valvular heart disease moderate MR TR 7. Secondary pulmonary hypertension? S: 12/24 abdominal pain epigastric unknown etiology. No known aggravating or relieving factors except for aggravated with activity? No nausea vomiting fever. : No events 12/26: ongoing abdominal pain discomfort 12/27: No events O: Vital signs stable Physical exam No pallor icterus JVD Regular no murmur rub gallop Clear Benign no flank ecchymosis No edema Home Meds Active Scripts Thiamine* (Vitamin B-1*) 100 Mg Tablet, 100 MG PO DAILY for 30 Days, TAB Prov:NOEL WAGNER MD 12/25/18 Lactobacillus Rhamnosus GG (Culturelle) 1 Each Capsule, 1 CAP PO BID for 10 Days, #20 CAP Prov:NOEL WAGNER MD 12/25/18 Acetaminophen* (Tylenol*) 325 Mg Tablet, 650 MG PO Q6H PRN for .PAIN 1-3 OR TEMP for 10 Days, TAB Prov:NOEL WAGNER MD 12/25/18 Lisinopril* (Lisinopril*) 2.5 Mg Tablet, 2.5 MG PO DAILY for 10 Days, #15 TAB Prov:NOEL WAGNER MD 12/25/18 Metoprolol Succinate* (Toprol XL*) 25 Mg Tab.sr.24h, 25 MG PO DAILY for 10 Days, #15 TAB Prov:NOEL WAGNER MD 12/25/18 Furosemide (Lasix) 20 Mg Tab, 20 MG PO BID DIURETICS for 10 Days, #20 TAB Prov:NOEL WAGNER MD 12/25/18 Discontinued Scripts Pantoprazole* (Protonix*) 40 Mg Tablet., 40 MG PO BID, #60 TAB Prov:PEEWEE WETZEL [employer]LL [employer] [place] 10/27/18 Follow-up Plan appt primary & Cardio 1wk gi referral placed 2wks Primary Care Provider Care Physician No Primary Time spent on discharge: < 30 minutes NOEL WAGNER MD Dec 28, 2018 15:00
[2018-12-28] MEDS ORDERED: PANT40TA4 PO (15:03)
[2018-12-28] MEDS ORDERED: SIME80TA60 PO (15:03)
[2018-12-28] MEDS ORDERED: HYOS0.1297 SL (15:03)
[2018-12-28] MEDS ORDERED: CARAS PO (15:03)
[2018-12-29] MEDS ORDERED: FUROSEMIDE 20 MG TAB PO SCH (09:00)
== END 2018-12-28 17:23 | disposition home or self-care (01) | DRG 293 ==
LOC: E/R 21:39 → 5EC 12-23 05:47 → OBSVTOIN 12-24 13:18
PROVIDERS: ADMIT Family Medicine; ATTEND Internal Medicine
PROC: CF1C1ZZ Planar Nuclear Medicine Imaging of Hepatobiliary System, All using Technetium 99m (Tc-99m) (ICD-10-PCS; principal; 2018-12-23)
DX: I11.0 Hypertensive heart disease with heart failure (principal); I50.43 Acute on chronic combined systolic (congestive) and diastolic (congestive) heart failure; I27.20 Pulmonary hypertension, unspecified; Z91.14 Patient's other noncompliance with medication regimen; K21.9 Gastro-esophageal reflux disease without esophagitis; I42.9 Cardiomyopathy, unspecified; D25.9 Leiomyoma of uterus, unspecified; K81.1 Chronic cholecystitis; I08.1 Rheumatic disorders of both mitral and tricuspid valves; K29.50 Unspecified chronic gastritis without bleeding
CPT/HCPCS: 36415; 71045; 74018; 74177; 76705; 78226; 80053; 81001; 81003; 81025; 82550; 82553; 83605; 83690; 83735; 83880; 84484; 85025; 85610; 87338; 93005; 93306; 96361; 96365; 96375; G0378; A9537; C9113; J1170; J1885; J2270; J2405; J2543; J7030; J7040; J7042; Q9967